=== PATIENT | male | born 1940 | race Caucasian/White ===

== ENCOUNTER 2016-08-03 09:42 | Day surgery (SDC) | payer OTHER, BC ==
[2016-08-03] MEDS ORDERED: diphenhydrAMINE HCL 25 MG CAPSULE (FP) PO ONE (11:00)
[2016-08-03] MEDS ORDERED: ACETAMINOPHEN 325 MG TABLET (FP) PO ONE (11:00)
[2016-08-03] MEDS ORDERED: IMMUNE GLOBULIN IVPB ONE (11:30)
[2016-08-03 17:32] VITALS: TEMP 97.4
[2016-08-03 19:36] VITALS: BP 148/73; PULSE 64
[2016-08-03 20:56] VITALS: BMI 34.7
== END 2016-08-03 19:30 | disposition home or self-care (01) ==
LOC: JINFUSION 09:42 → J7W 09:43 → JINFUSION 19:30
PROVIDERS: ATTEND Psychiatry & Neurology Neurology
DX: G61.89 Other inflammatory polyneuropathies (principal)
CPT/HCPCS: 96413; 96415; J1561; J1459

== ENCOUNTER 2016-09-07 09:31 | Day surgery (SDC) | payer OTHER, BC ==
[2016-09-07] MEDS ORDERED: ACETAMINOPHEN 325 MG TABLET (FP) PO SCH (10:00)
[2016-09-07] MEDS ORDERED: diphenhydrAMINE HCL 25 MG CAPSULE (FP) PO SCH (10:00)
[2016-09-07] MEDS ORDERED: IMMUNE GLOBULIN IVPB ONE (11:00)
[2016-09-07 16:09] VITALS: BP 140/72; PULSE 55; TEMP 97.4; BMI 34.5
== END 2016-09-07 17:00 | disposition home or self-care (01) ==
LOC: JINFUSION 09:31 → J7W 09:31 → JINFUSION 17:00
PROVIDERS: ATTEND Psychiatry & Neurology Neurology
DX: G61.89 Other inflammatory polyneuropathies (principal)
CPT/HCPCS: 96413; 96415; J1561; 96365; 96366; J1459

== ENCOUNTER 2016-10-05 09:46 | Day surgery (SDC) | payer OTHER, BC ==
[2016-10-05] MEDS ORDERED: diphenhydrAMINE HCL 25 MG CAPSULE (FP) PO SCH (10:15)
[2016-10-05] MEDS ORDERED: ACETAMINOPHEN 325 MG TABLET (FP) PO SCH (10:15)
[2016-10-05] MEDS ORDERED: IMMUNE GLOBULIN IVPB ONE (11:00)
[2016-10-05 19:57] VITALS: BP 142/64; PULSE 76; TEMP 98.3
== END 2016-10-05 18:00 | disposition home or self-care (01) ==
LOC: J7W 09:46 → JINFUSION 09:46
PROVIDERS: ATTEND Psychiatry & Neurology Neurology
DX: G62.9 Polyneuropathy, unspecified (principal)
CPT/HCPCS: 96365; 96366; J1561; J1459

== ENCOUNTER 2016-11-30 09:16 | Day surgery (SDC) | payer OTHER, BC ==
[2016-11-30] MEDS ORDERED: ACETAMINOPHEN 325 MG TABLET (FP) PO ONE (11:30)
[2016-11-30] MEDS ORDERED: diphenhydrAMINE HCL 25 MG CAPSULE (FP) PO ONE (11:30)
[2016-11-30] MEDS ORDERED: IMMUNE GLOBULIN IVPB ONE (12:00)
[2016-11-30 19:09] VITALS: PULSE 65; TEMP 97.8
[2016-11-30 19:10] VITALS: BP 140/84
== END 2016-11-30 19:10 | disposition home or self-care (01) ==
LOC: J7W 09:16 → JINFUSION 09:16
PROVIDERS: ATTEND Psychiatry & Neurology Neurology
PROC: 3E033GC Introduction of Other Therapeutic Substance into Peripheral Vein, Percutaneous Approach (ICD-10-PCS; principal; 2016-11-30)
DX: G61.89 Other inflammatory polyneuropathies (principal)
CPT/HCPCS: 96365; 96366; J1561; J1459

== ENCOUNTER 2017-07-07 08:22 | Day surgery (SDC) | payer OTHER, BC ==
[2017-07-07] MEDS ORDERED: ACETAMINOPHEN 325 MG TABLET (FP) PO ONE (09:00)
[2017-07-07] MEDS ORDERED: diphenhydrAMINE HCL 25 MG CAPSULE (FP) PO ONE ×2 (09:00→09:06)
[2017-07-07 09:05] LABS: MCH 30.2 pg (25.7-33.7); MCHC 33.3 g/dl (32.0-35.9); MEAN CELL VOLUME 90.9 fl (80-96); MEAN PLT VOLUME 8.2 fl (7.5-11.1); PLATELET COUNT 268 K/MM3 (134-434); RDW 14.1 % (11.9-15.9); WHITE BLOOD COUNT 8.8 K/mm3 (4.0-10.0)
[2017-07-07] MEDS ORDERED: ACETAMINOPHEN 325 MG TABLET (FP) ONE (09:06)
[2017-07-07 09:25] LABS: ALBUMIN 3.5 g/dl (3.4-5.0); ALK PHOS 145 U/L (45-117); ANION GAP 9 (8-16); BILIRUBIN,DIRECT 0.2 mg/dL (0.0-0.2); BILIRUBIN,TOTAL 0.9 mg/dL (0.2-1.0); CALCIUM 8.6 mg/dL (8.5-10.1); CO2 23 mmol/L (21-32); CREATININE 0.7 mg/dL (0.7-1.3); GLUCOSE,RANDOM 221 mg/dL (74-106); SGOT/AST 80 U/L (15-37); SGPT/ALT 136 U/L (12-78)
[2017-07-07] MEDS ORDERED: IMMUNE GLOB,GAM CAPRYLATE(IGG) 40 GM IVPB ONE (09:30)
[2017-07-07 14:25] VITALS: BP 128/74; PULSE 62; TEMP 97.6
[2017-07-08 06:06] LABS: IGG IMMUNOGLOBULIN 920 mg/dL (700-1600); IGM IMMUNOGLOBULIN 264 mg/dL (15-143)
== END 2017-07-07 14:35 | disposition home or self-care (01) ==
LOC: JINFUSION 08:22
PROVIDERS: ATTEND Psychiatry & Neurology Neurology
PROC: 3E033GC Introduction of Other Therapeutic Substance into Peripheral Vein, Percutaneous Approach (ICD-10-PCS; principal; 2017-07-07)
DX: G61.89 Other inflammatory polyneuropathies (principal)
CPT/HCPCS: 96365; 96366; J1561; 36415; 80053; 80076; 82784; 85027

== ENCOUNTER 2017-07-08 09:09 | Day surgery (SDC) | payer OTHER, BC ==
[2017-07-08] MEDS ORDERED: diphenhydrAMINE HCL 25 MG CAPSULE (FP) PO ONE ×2 (09:30→09:43)
[2017-07-08] MEDS ORDERED: ACETAMINOPHEN 325 MG TABLET (FP) PO ONE (09:30)
[2017-07-08] MEDS ORDERED: ACETAMINOPHEN 325 MG TABLET (FP) ONE (09:43)
[2017-07-08] MEDS ORDERED: IMMUNE GLOB,GAM CAPRYLATE(IGG) 40 GM IVPB ONE (10:00)
[2017-07-08 14:22] VITALS: TEMP 97.7
[2017-07-08 14:24] VITALS: BP 114/77; PULSE 72
== END 2017-07-08 14:25 | disposition home or self-care (01) ==
LOC: JINFUSION 09:09
PROVIDERS: ATTEND Psychiatry & Neurology Neurology
PROC: 3E033WK Introduction of Immunostimulator into Peripheral Vein, Percutaneous (ICD-10-PCS; principal; 2017-07-08)
DX: G61.89 Other inflammatory polyneuropathies (principal)
CPT/HCPCS: 96365; 96366; J1561

== ENCOUNTER 2017-07-09 08:19 | Day surgery (SDC) | payer OTHER, BC ==
[2017-07-09] MEDS ORDERED: ACETAMINOPHEN 325 MG TABLET (FP) PO ONE (09:00)
[2017-07-09] MEDS ORDERED: diphenhydrAMINE HCL 25 MG CAPSULE (FP) PO ONE ×2 (09:00→09:07)
[2017-07-09] MEDS ORDERED: ACETAMINOPHEN 325 MG TABLET (FP) ONE (09:07)
[2017-07-09] MEDS ORDERED: IMMUNE GLOB,GAM CAPRYLATE(IGG) 40 GM IVPB ONE (09:30)
[2017-07-09 12:21] VITALS: TEMP 98.2
[2017-07-09 13:54] VITALS: BP 118/78; PULSE 66
== END 2017-07-09 13:50 | disposition home or self-care (01) ==
LOC: JINFUSION 08:19
PROVIDERS: ATTEND Psychiatry & Neurology Neurology
PROC: 3E033GC Introduction of Other Therapeutic Substance into Peripheral Vein, Percutaneous Approach (ICD-10-PCS; principal; 2017-07-09)
DX: G61.89 Other inflammatory polyneuropathies (principal)
CPT/HCPCS: 96365; 96366; J1561

== ENCOUNTER 2017-07-10 08:49 | Day surgery (SDC) | payer OTHER, BC ==
[2017-07-10] MEDS ORDERED: ACETAMINOPHEN 325 MG TABLET (FP) ONE (09:09)
[2017-07-10] MEDS ORDERED: diphenhydrAMINE HCL 25 MG CAPSULE (FP) PO ONE ×2 (09:09→09:15)
[2017-07-10] MEDS ORDERED: ACETAMINOPHEN 325 MG TABLET (FP) PO ONE (09:15)
[2017-07-10] MEDS ORDERED: IMMUNE GLOB,GAM CAPRYLATE(IGG) 40 GM IVPB ONE (09:45)
[2017-07-10 12:41] VITALS: BP 117/68; PULSE 60; TEMP 97.8
== END 2017-07-10 14:00 | disposition home or self-care (01) ==
LOC: JINFUSION 08:49
PROVIDERS: ATTEND Psychiatry & Neurology Neurology
PROC: 3E033GC Introduction of Other Therapeutic Substance into Peripheral Vein, Percutaneous Approach (ICD-10-PCS; principal; 2017-07-10)
DX: G61.89 Other inflammatory polyneuropathies (principal)
CPT/HCPCS: 96365; 96366; J1561

== ENCOUNTER 2017-08-11 08:26 | Day surgery (SDC) | payer OTHER, BC ==
[2017-08-11 09:07] LABS: HEMATOCRIT 44.9 % (35.4-49); HEMOGLOBIN 14.9 GM/dL (11.7-16.9); MCH 30.6 pg (25.7-33.7); MCHC 33.1 g/dl (32.0-35.9); MEAN CELL VOLUME 92.3 fl (80-96); MEAN PLT VOLUME 8.4 fl (7.5-11.1); PLATELET COUNT 219 K/MM3 (134-434); RBC 4.87 M/mm3 (4.00-5.60); RDW 14.4 % (11.9-15.9); WHITE BLOOD COUNT 6.4 K/mm3 (4.0-10.0)
[2017-08-11] MEDS ORDERED: diphenhydrAMINE HCL 25 MG CAPSULE (FP) PO ONE ×2 (09:30→09:38)
[2017-08-11] MEDS ORDERED: ACETAMINOPHEN 325 MG TABLET (FP) PO ONE (09:30)
[2017-08-11] MEDS ORDERED: ACETAMINOPHEN 325 MG TABLET (FP) ONE (09:39)
[2017-08-11 09:45] LABS: ALBUMIN 3.6 g/dl (3.4-5.0); ALK PHOS 123 U/L (45-117); ANION GAP 8 (8-16); BILIRUBIN,DIRECT 0.3 mg/dL (0.0-0.2); BLOOD UREA NITROGEN 11 mg/dL (7-18); CALCIUM 8.7 mg/dL (8.5-10.1); CHLORIDE 97 mmol/L (98-107); CO2 24 mmol/L (21-32); CREATININE 0.8 mg/dL (0.7-1.3); GLUCOSE,RANDOM 238 mg/dL (74-106); POTASSIUM 4.4 mmol/L (3.5-5.1); SGOT/AST 35 U/L (15-37); SGPT/ALT 52 U/L (12-78); SODIUM 129 mmol/L (136-145); TOT PROT 7.7 g/dl (6.4-8.2)
[2017-08-11] MEDS ORDERED: IMMUNE GLOB,GAM CAPRYLATE(IGG) 40 GM IVPB ONE (10:00)
[2017-08-11 14:27] VITALS: BP 142/81; PULSE 64; TEMP 97.8
[2017-08-12 06:11] LABS: IGA IMMUNOGLOBULIN 223 mg/dL (61-437); IGG IMMUNOGLOBULIN 1385 mg/dL (700-1600)
== END 2017-08-11 14:30 | disposition home or self-care (01) ==
LOC: JINFUSION 08:26
PROVIDERS: ATTEND Internal Medicine
PROC: 3E033GC Introduction of Other Therapeutic Substance into Peripheral Vein, Percutaneous Approach (ICD-10-PCS; principal; 2017-08-11)
DX: G61.89 Other inflammatory polyneuropathies (principal)
CPT/HCPCS: 36415; 80053; 80076; 82784; 85027; 96365; 96366; J1561

== ENCOUNTER 2017-08-12 08:14 | Day surgery (SDC) | payer OTHER, BC ==
[2017-08-12] MEDS ORDERED: diphenhydrAMINE HCL 25 MG CAPSULE (FP) PO ONE ×2 (08:35→08:45)
[2017-08-12] MEDS ORDERED: ACETAMINOPHEN 325 MG TABLET (FP) ONE (08:35)
[2017-08-12] MEDS ORDERED: ACETAMINOPHEN 325 MG TABLET (FP) PO ONE (08:45)
[2017-08-12] MEDS ORDERED: IMMUNE GLOB,GAM CAPRYLATE(IGG) 40 GM IVPB ONE (09:00)
[2017-08-12] MEDS ORDERED: IMMUNE GLOB,GAM CAPRYLATE(IGG) 40 GM IVPB SCH (09:00)
[2017-08-12 13:27] VITALS: TEMP 98.6
[2017-08-12 14:25] VITALS: BP 152/71; PULSE 66
== END 2017-08-12 14:25 | disposition home or self-care (01) ==
LOC: JINFUSION 08:14
PROVIDERS: ATTEND Internal Medicine
PROC: 3E033GC Introduction of Other Therapeutic Substance into Peripheral Vein, Percutaneous Approach (ICD-10-PCS; principal; 2017-08-12)
DX: G61.89 Other inflammatory polyneuropathies (principal)
CPT/HCPCS: 96365; 96366; J1561

== ENCOUNTER 2017-08-13 09:03 | Day surgery (SDC) | payer OTHER, BC ==
[2017-08-13] MEDS ORDERED: diphenhydrAMINE HCL 25 MG CAPSULE (FP) PO ONE ×2 (09:30→10:00)
[2017-08-13] MEDS ORDERED: ACETAMINOPHEN 325 MG TABLET (FP) PO ONE (09:30)
[2017-08-13] MEDS ORDERED: ACETAMINOPHEN 325 MG TABLET (FP) ONE (09:30)
[2017-08-13] MEDS ORDERED: IMMUNE GLOB,GAM CAPRYLATE(IGG) 40 GM IVPB ONE (10:00)
[2017-08-13 12:17] VITALS: PULSE 68
[2017-08-13 14:08] VITALS: BP 143/81; TEMP 98
== END 2017-08-13 14:10 | disposition home or self-care (01) ==
LOC: JINFUSION 09:03
PROVIDERS: ATTEND Internal Medicine
PROC: 3E033GC Introduction of Other Therapeutic Substance into Peripheral Vein, Percutaneous Approach (ICD-10-PCS; principal; 2017-08-13)
DX: G61.89 Other inflammatory polyneuropathies (principal)
CPT/HCPCS: 96365; 96366; J1561

== ENCOUNTER 2017-08-14 08:48 | Day surgery (SDC) | payer OTHER, BC ==
[2017-08-14] MEDS ORDERED: ACETAMINOPHEN 325 MG TABLET (FP) PO ONE (09:14)
[2017-08-14] MEDS ORDERED: ACETAMINOPHEN 325 MG TABLET (FP) ONE (09:14)
[2017-08-14] MEDS ORDERED: diphenhydrAMINE HCL 25 MG CAPSULE (FP) PO ONE ×2 (09:14)
[2017-08-14] MEDS ORDERED: IMMUNE GLOB,GAM CAPRYLATE(IGG) 40 GM IVPB SCH (10:00)
[2017-08-14 14:15] VITALS: BP 135/83; PULSE 64; TEMP 98.4
== END 2017-08-14 14:25 | disposition home or self-care (01) ==
LOC: JINFUSION 08:48
PROVIDERS: ATTEND Internal Medicine
PROC: 3E033GC Introduction of Other Therapeutic Substance into Peripheral Vein, Percutaneous Approach (ICD-10-PCS; principal; 2017-08-14)
DX: G61.89 Other inflammatory polyneuropathies (principal)
CPT/HCPCS: 96365; 96366; J1561

== ENCOUNTER 2017-11-27 09:03 | Day surgery (SDC) | payer OTHER, BC ==
[2017-11-27] MEDS ORDERED: IMMUNE GLOBULIN IVPB SCH (10:00)
[2017-11-27 15:19] VITALS: BP 146/84; PULSE 59; TEMP 98
== END 2017-11-27 15:23 | disposition home or self-care (01) ==
LOC: JINFUSION 09:03
PROVIDERS: ATTEND Psychiatry & Neurology Psychiatry
PROC: 3E033GC Introduction of Other Therapeutic Substance into Peripheral Vein, Percutaneous Approach (ICD-10-PCS; principal; 2017-11-27)
DX: G61.89 Other inflammatory polyneuropathies (principal)
CPT/HCPCS: 96365; 96366; J1561

== ENCOUNTER 2017-11-28 08:33 | Day surgery (SDC) | payer OTHER, BC ==
[2017-11-28] MEDS ORDERED: IMMUNE GLOBULIN IVPB ONE (09:30)
[2017-11-28 10:34] VITALS: TEMP 97.9
[2017-11-28 15:08] VITALS: BP 148/84; PULSE 63
== END 2017-11-28 15:08 | disposition home or self-care (01) ==
LOC: JINFUSION 08:33
PROVIDERS: ATTEND Psychiatry & Neurology Psychiatry
PROC: 3E033GC Introduction of Other Therapeutic Substance into Peripheral Vein, Percutaneous Approach (ICD-10-PCS; principal; 2017-11-28)
DX: G61.89 Other inflammatory polyneuropathies (principal)
CPT/HCPCS: 96365; 96366; J1561

== ENCOUNTER 2018-01-22 08:01 | Day surgery (SDC) | payer OTHER, BC ==
[2018-01-22] MEDS ORDERED: IMMUNE GLOBULIN IVPB ONE (09:00)
[2018-01-22 10:18] VITALS: TEMP 97.8
[2018-01-22 10:50] VITALS: PULSE 62
[2018-01-22 14:45] VITALS: BP 150/89
== END 2018-01-22 12:40 | disposition home or self-care (01) ==
LOC: JINFUSION 08:01
PROVIDERS: ATTEND Psychiatry & Neurology Psychiatry
PROC: 3E033GC Introduction of Other Therapeutic Substance into Peripheral Vein, Percutaneous Approach (ICD-10-PCS; principal; 2018-01-22)
DX: G61.89 Other inflammatory polyneuropathies (principal)
CPT/HCPCS: 96365; 96366; J1561

== ENCOUNTER 2018-01-23 08:40 | Day surgery (SDC) | payer OTHER, BC ==
[2018-01-23] MEDS ORDERED: IMMUNE GLOBULIN IVPB ONE (10:00)
[2018-01-23 13:31] VITALS: PULSE 67
[2018-01-23 13:35] VITALS: BP 149/77; TEMP 97.7
== END 2018-01-23 13:35 | disposition home or self-care (01) ==
LOC: JINFUSION 08:40
PROVIDERS: ATTEND Psychiatry & Neurology Psychiatry
PROC: 3E033GC Introduction of Other Therapeutic Substance into Peripheral Vein, Percutaneous Approach (ICD-10-PCS; principal; 2018-01-23)
DX: G61.89 Other inflammatory polyneuropathies (principal)
CPT/HCPCS: 96365; 96366

== ENCOUNTER 2018-04-02 07:37 | Day surgery (SDC) | payer OTHER, BC ==
[2018-04-02] MEDS ORDERED: diphenhydrAMINE HCL 25 MG CAPSULE (FP) PO ONE ×2 (07:59→08:15)
[2018-04-02] MEDS ORDERED: ACETAMINOPHEN 325 MG TABLET (FP) ONE (08:00)
[2018-04-02] MEDS ORDERED: ACETAMINOPHEN 325 MG TABLET (FP) PO ONE (08:15)
[2018-04-02] MEDS ORDERED: IMMUNE GLOB,GAM CAPRYLATE(IGG) 60 GM/600 ML VIA IVPB ONE (08:45)
[2018-04-02 11:52] VITALS: TEMP 97.6
[2018-04-02 12:04] VITALS: BP 145/86; PULSE 57
== END 2018-04-02 12:13 | disposition home or self-care (01) ==
LOC: JINFUSION 07:37
PROVIDERS: ATTEND Psychiatry & Neurology Psychiatry
PROC: 3E033GC Introduction of Other Therapeutic Substance into Peripheral Vein, Percutaneous Approach (ICD-10-PCS; principal; 2018-04-02)
DX: G61.89 Other inflammatory polyneuropathies (principal)
CPT/HCPCS: 96365; 96366; J1561

== ENCOUNTER 2018-04-30 08:52 | Day surgery (SDC) | payer OTHER, BC ==
[2018-04-30] MEDS ORDERED: IMMUNE GLOB,GAM CAPRYLATE(IGG) 60 GM/600 ML VIA IVPB ONE (09:30)
[2018-04-30] MEDS ORDERED: diphenhydrAMINE HCL 25 MG CAPSULE (FP) PO ONE ×2 (09:30→09:38)
[2018-04-30] MEDS ORDERED: ACETAMINOPHEN 325 MG TABLET (FP) PO ONE (09:30)
[2018-04-30] MEDS ORDERED: ACETAMINOPHEN 325 MG TABLET (FP) ONE (09:38)
[2018-04-30 10:33] VITALS: TEMP 97.8
[2018-04-30 12:53] VITALS: BP 131/76; PULSE 57
== END 2018-04-30 12:45 | disposition home or self-care (01) ==
LOC: JINFUSION 08:52
PROVIDERS: ATTEND Psychiatry & Neurology Psychiatry
PROC: 3E033GC Introduction of Other Therapeutic Substance into Peripheral Vein, Percutaneous Approach (ICD-10-PCS; principal; 2018-04-30)
DX: G61.89 Other inflammatory polyneuropathies (principal)
CPT/HCPCS: 96365; 96366; J1561

== ENCOUNTER 2018-06-04 09:04 | Day surgery (SDC) | payer OTHER, BC ==
[2018-06-04] MEDS ORDERED: diphenhydrAMINE HCL 25 MG CAPSULE (FP) PO ONE ×2 (09:16→10:00)
[2018-06-04] MEDS ORDERED: ACETAMINOPHEN 325 MG TABLET (FP) ONE (09:17)
[2018-06-04] MEDS ORDERED: ACETAMINOPHEN 325 MG TABLET (FP) PO ONE (10:00)
[2018-06-04] MEDS ORDERED: IGA AVG IVPB ONE (10:30)
[2018-06-04] MEDS ORDERED: IMMUNE GLOBUL IVPB ONE (10:30)
[2018-06-04] MEDS ORDERED: GLY IVPB ONE (10:30)
[2018-06-04 15:17] VITALS: BP 131/76; PULSE 73; TEMP 98
== END 2018-06-04 14:00 | disposition home or self-care (01) ==
LOC: JINFUSION 09:04
PROVIDERS: ATTEND Psychiatry & Neurology Psychiatry
PROC: 3E033GC Introduction of Other Therapeutic Substance into Peripheral Vein, Percutaneous Approach (ICD-10-PCS; principal; 2018-06-04)
DX: G61.89 Other inflammatory polyneuropathies (principal)
CPT/HCPCS: 96365; 96366; J1561

== ENCOUNTER 2018-07-02 08:36 | Day surgery (SDC) | payer OTHER, BC ==
[2018-07-02] MEDS ORDERED: ACETAMINOPHEN 325 MG TABLET (FP) ONE (09:04)
[2018-07-02] MEDS ORDERED: diphenhydrAMINE HCL 25 MG CAPSULE (FP) PO ONE ×2 (09:04→09:15)
[2018-07-02] MEDS ORDERED: ACETAMINOPHEN 325 MG TABLET (FP) PO ONE (09:15)
[2018-07-02] MEDS ORDERED: IMMUNE GLOB,GAM CAPRYLATE(IGG) 60 GM/600 ML VIA IVPB ONE (09:30)
[2018-07-02 11:59] VITALS: BP 134/81; PULSE 54; TEMP 98
== END 2018-07-02 12:06 | disposition home or self-care (01) ==
LOC: JINFUSION 08:36
PROVIDERS: ATTEND Psychiatry & Neurology Psychiatry
PROC: 3E033GC Introduction of Other Therapeutic Substance into Peripheral Vein, Percutaneous Approach (ICD-10-PCS; principal; 2018-07-02)
DX: G61.89 Other inflammatory polyneuropathies (principal)
CPT/HCPCS: 96365; 96366; J1561

== ENCOUNTER 2018-08-06 08:58 | Day surgery (SDC) | payer OTHER, BC ==
[~2018-08-06 08:58] MED LIST: ACETAMINOPHEN 325 MG TABLET (FP) PO ONE; diphenhydrAMINE HCL 25 MG CAPSULE (FP) PO ONE
[2018-08-06] MEDS ORDERED: ACETAMINOPHEN 325 MG TABLET (FP) ONE (09:58)
[2018-08-06] MEDS ORDERED: diphenhydrAMINE HCL 25 MG CAPSULE (FP) PO ONE (09:58)
[2018-08-06] MEDS ORDERED: IGA AVG IVPB ONE (10:00)
[2018-08-06] MEDS ORDERED: GLY IVPB ONE (10:00)
[2018-08-06] MEDS ORDERED: IMMUNE GLOBUL IVPB ONE (10:00)
[2018-08-06 11:05] VITALS: TEMP 97.7
[2018-08-06 14:25] VITALS: BP 135/81; PULSE 62
== END 2018-08-06 13:25 | disposition home or self-care (01) ==
LOC: JINFUSION 08:58
PROVIDERS: ATTEND Psychiatry & Neurology Psychiatry
PROC: 3E033GC Introduction of Other Therapeutic Substance into Peripheral Vein, Percutaneous Approach (ICD-10-PCS; principal; 2018-08-06)
DX: G61.89 Other inflammatory polyneuropathies (principal)
CPT/HCPCS: 96365; 96366; J1561

== ENCOUNTER 2018-09-10 08:45 | Day surgery (SDC) | payer OTHER, BC ==
[2018-09-10] MEDS ORDERED: IMMUNE GLOBUL IVPB SCH (09:00)
[2018-09-10] MEDS ORDERED: GLY IVPB SCH (09:00)
[2018-09-10] MEDS ORDERED: IGA AVG IVPB SCH (09:00)
[2018-09-10] MEDS ORDERED: diphenhydrAMINE HCL 25 MG CAPSULE (FP) PO ONE ×2 (09:29→09:45)
[2018-09-10] MEDS ORDERED: ACETAMINOPHEN 325 MG TABLET (FP) ONE (09:29)
[2018-09-10] MEDS ORDERED: IGA AVG IVPB ONE (09:37)
[2018-09-10] MEDS ORDERED: IMMUNE GLOBUL IVPB ONE (09:37)
[2018-09-10] MEDS ORDERED: GLY IVPB ONE (09:37)
[2018-09-10] MEDS ORDERED: ACETAMINOPHEN 325 MG TABLET (FP) PO ONE (09:45)
[2018-09-10 12:14] VITALS: BP 109/76; PULSE 73; TEMP 97.9
== END 2018-09-10 12:28 | disposition home or self-care (01) ==
LOC: JINFUSION 08:45
PROVIDERS: ATTEND Psychiatry & Neurology Psychiatry
PROC: 3E033GC Introduction of Other Therapeutic Substance into Peripheral Vein, Percutaneous Approach (ICD-10-PCS; principal; 2018-09-10)
DX: G61.89 Other inflammatory polyneuropathies (principal)
CPT/HCPCS: 96365; 96366; J1561

== ENCOUNTER 2018-10-12 09:02 | Day surgery (SDC) | payer OTHER, BC ==
[~2018-10-12 09:02] MED LIST changes: +IMMUN GLOB G(IGG)/PRO/IGA 0-50 600 ML IVPB ONE
[2018-10-12] MEDS ORDERED: ACETAMINOPHEN 325 MG TABLET (FP) ONE (09:15)
[2018-10-12] MEDS ORDERED: diphenhydrAMINE HCL 25 MG CAPSULE (FP) PO ONE (09:15)
[2018-10-12 12:03] VITALS: BP 134/80; PULSE 56; TEMP 97.7
== END 2018-10-12 12:46 | disposition home or self-care (01) ==
LOC: JINFUSION 09:02
PROVIDERS: ATTEND Psychiatry & Neurology Psychiatry
PROC: 3E033GC Introduction of Other Therapeutic Substance into Peripheral Vein, Percutaneous Approach (ICD-10-PCS; principal; 2018-10-12)
DX: G61.89 Other inflammatory polyneuropathies (principal)
CPT/HCPCS: 96365; 96366; J1459

== ENCOUNTER 2018-11-26 08:49 | Day surgery (SDC) | payer OTHER, BC ==
[2018-11-26] MEDS ORDERED: IMMUN GLOB G(IGG)/PRO/IGA 0-50 600 ML IVPB ONE (09:00)
[2018-11-26] MEDS ORDERED: diphenhydrAMINE HCL 25 MG CAPSULE (FP) PO ONE ×2 (09:00→09:06)
[2018-11-26] MEDS ORDERED: ACETAMINOPHEN 325 MG TABLET (FP) PO ONE (09:00)
[2018-11-26] MEDS ORDERED: ACETAMINOPHEN 325 MG TABLET (FP) ONE (09:05)
[2018-11-26 11:11] VITALS: TEMP 98
[2018-11-26 12:33] VITALS: BP 127/69; PULSE 55
== END 2018-11-26 12:55 | disposition home or self-care (01) ==
LOC: JINFUSION 08:49
PROVIDERS: ATTEND Psychiatry & Neurology Psychiatry
PROC: 3E033GC Introduction of Other Therapeutic Substance into Peripheral Vein, Percutaneous Approach (ICD-10-PCS; principal; 2018-11-26)
DX: G61.89 Other inflammatory polyneuropathies (principal)
CPT/HCPCS: 96365; 96366; J1459

== ENCOUNTER 2018-12-24 08:40 | Day surgery (SDC) | payer OTHER, BC | END 2018-12-24 14:20 | disposition home or self-care (01) | LOC: JINFUSION 08:40 ==

== ENCOUNTER 2019-01-25 08:30 | Day surgery (SDC) | payer OTHER, BC ==
[2019-01-25] MEDS ORDERED: diphenhydrAMINE HCL 25 MG CAPSULE (FP) PO ONE ×2 (09:00→09:21)
[2019-01-25] MEDS ORDERED: ACETAMINOPHEN 325 MG TABLET (FP) PO ONE (09:00)
[2019-01-25] MEDS ORDERED: ACETAMINOPHEN 325 MG TABLET (FP) ONE (09:21)
[2019-01-25] MEDS ORDERED: [UNRECOGNIZED DRUG - OTHER] IVPB ONE (10:00)
[2019-01-25] MEDS ORDERED: IMMUNE GLOBULIN IVPB ONE (10:00)
[2019-01-25 13:23] VITALS: BP 145/79; PULSE 66; TEMP 98
== END 2019-01-25 13:15 | disposition home or self-care (01) ==
LOC: JINFUSION 08:30
PROVIDERS: ATTEND Psychiatry & Neurology Psychiatry
PROC: 3E033GC Introduction of Other Therapeutic Substance into Peripheral Vein, Percutaneous Approach (ICD-10-PCS; principal; 2019-01-25)
DX: G61.89 Other inflammatory polyneuropathies (principal)
CPT/HCPCS: 96365; 96366; J1569

== ENCOUNTER 2019-02-26 08:59 | Day surgery (SDC) | payer OTHER, BC ==
[2019-02-26] MEDS ORDERED: ACETAMINOPHEN 325 MG TABLET (FP) PO ONE (09:30)
[2019-02-26] MEDS ORDERED: diphenhydrAMINE HCL 25 MG CAPSULE (FP) PO ONE (09:30)
[2019-02-26] MEDS ORDERED: [UNRECOGNIZED DRUG - OTHER] IVPB ONE (09:45)
[2019-02-26] MEDS ORDERED: IMMUNE GLOBULIN IVPB ONE (09:45)
[2019-02-26 14:15] VITALS: BP 148/80; PULSE 58; TEMP 97.9
== END 2019-02-26 15:01 | disposition home or self-care (01) ==
LOC: JINFUSION 08:59
PROVIDERS: ATTEND Psychiatry & Neurology Psychiatry
PROC: 3E033GC Introduction of Other Therapeutic Substance into Peripheral Vein, Percutaneous Approach (ICD-10-PCS; principal; 2019-02-26)
DX: G61.89 Other inflammatory polyneuropathies (principal)
CPT/HCPCS: 96365; 96366; J1459

== ENCOUNTER 2019-03-25 08:50 | Day surgery (SDC) | payer OTHER, BC ==
[~2019-03-25 08:50] MED LIST changes: -IMMUN GLOB G(IGG)/PRO/IGA 0-50 600 ML IVPB ONE
[2019-03-25] MEDS ORDERED: IMMUNE GLOBULIN IVPB ONE (09:00)
[2019-03-25] MEDS ORDERED: [UNRECOGNIZED DRUG - OTHER] IVPB ONE (09:00)
[2019-03-25] MEDS ORDERED: diphenhydrAMINE HCL 25 MG CAPSULE (FP) PO ONE (09:04)
[2019-03-25] MEDS ORDERED: ACETAMINOPHEN 325 MG TABLET (FP) ONE (09:05)
[2019-03-25 09:18] VITALS: TEMP 97.8
[2019-03-25 12:51] VITALS: BP 156/87; PULSE 61
== END 2019-03-25 14:40 | disposition home or self-care (01) ==
LOC: JINFUSION 08:50
PROVIDERS: ATTEND Psychiatry & Neurology Psychiatry
PROC: 3E033GC Introduction of Other Therapeutic Substance into Peripheral Vein, Percutaneous Approach (ICD-10-PCS; principal; 2019-03-25)
DX: G61.89 Other inflammatory polyneuropathies (principal)
CPT/HCPCS: 96365; 96366; J1459

== ENCOUNTER 2019-04-22 08:14 | Day surgery (SDC) | payer OTHER, BC ==
[2019-04-22] MEDS ORDERED: ACETAMINOPHEN 325 MG TABLET (FP) PO ONE (08:30)
[2019-04-22] MEDS ORDERED: diphenhydrAMINE HCL 25 MG CAPSULE (FP) PO ONE ×2 (08:30→09:05)
[2019-04-22] MEDS ORDERED: IMMUNE GLOBULIN IVPB ONE (09:00)
[2019-04-22] MEDS ORDERED: [UNRECOGNIZED DRUG - OTHER] IVPB ONE (09:00)
[2019-04-22] MEDS ORDERED: ACETAMINOPHEN 325 MG TABLET (FP) ONE (09:05)
[2019-04-22 13:21] VITALS: TEMP 97.7
[2019-04-22 14:18] VITALS: BP 134/76; PULSE 76
== END 2019-04-22 14:20 | disposition home or self-care (01) ==
LOC: JINFUSION 08:14
PROVIDERS: ATTEND Psychiatry & Neurology Psychiatry
PROC: 3E033GC Introduction of Other Therapeutic Substance into Peripheral Vein, Percutaneous Approach (ICD-10-PCS; principal; 2019-04-22)
DX: G61.89 Other inflammatory polyneuropathies (principal)
CPT/HCPCS: 96365; 96366; J1459

== ENCOUNTER 2019-05-26 08:33 | Day surgery (SDC) | payer OTHER, BC ==
[2019-05-26] MEDS ORDERED: IMMUNE GLOBULIN IVPB ONE (09:00)
[2019-05-26] MEDS ORDERED: [UNRECOGNIZED DRUG - OTHER] IVPB ONE (09:00)
[2019-05-26] MEDS ORDERED: diphenhydrAMINE HCL 25 MG CAPSULE (FP) PO ONE (09:02)
[2019-05-26] MEDS ORDERED: ACETAMINOPHEN 325 MG TABLET (FP) ONE (09:04)
[2019-05-26 15:32] VITALS: BP 146/85; PULSE 72; TEMP 98
== END 2019-05-26 14:00 | disposition home or self-care (01) ==
LOC: JINFUSION 08:33
PROVIDERS: ATTEND Psychiatry & Neurology Psychiatry
PROC: 3E033GC Introduction of Other Therapeutic Substance into Peripheral Vein, Percutaneous Approach (ICD-10-PCS; principal; 2019-05-26)
DX: G61.89 Other inflammatory polyneuropathies (principal)
CPT/HCPCS: 96365; 96366; J1459

== ENCOUNTER 2019-06-24 08:12 | Day surgery (SDC) | payer OTHER, BC ==
[2019-06-24] MEDS ORDERED: ACETAMINOPHEN 325 MG TABLET (FP) PO ONE (08:45)
[2019-06-24] MEDS ORDERED: diphenhydrAMINE HCL 25 MG CAPSULE (FP) PO ONE ×2 (08:45→09:15)
[2019-06-24] MEDS ORDERED: [UNRECOGNIZED DRUG - OTHER] IVPB ONE (09:00)
[2019-06-24] MEDS ORDERED: IMMUNE GLOBULIN IVPB ONE (09:00)
[2019-06-24] MEDS ORDERED: ACETAMINOPHEN 325 MG TABLET (FP) ONE (09:16)
[2019-06-24 13:51] VITALS: BP 140/84; PULSE 61; TEMP 97.7
== END 2019-06-24 14:36 | disposition home or self-care (01) ==
LOC: JINFUSION 08:12
PROVIDERS: ATTEND Psychiatry & Neurology Psychiatry
DX: G61.89 Other inflammatory polyneuropathies (principal)
CPT/HCPCS: 96365; 96366; J1459

== ENCOUNTER 2019-07-22 08:44 | Day surgery (SDC) | payer OTHER, BC ==
[2019-07-22] MEDS ORDERED: diphenhydrAMINE HCL 25 MG CAPSULE (FP) PO ONE ×2 (09:00→09:27)
[2019-07-22] MEDS ORDERED: ACETAMINOPHEN 325 MG TABLET (FP) PO ONE (09:00)
[2019-07-22] MEDS ORDERED: ACETAMINOPHEN 325 MG TABLET (FP) ONE (09:27)
[2019-07-22] MEDS ORDERED: IMMUNE GLOBULIN IVPB ONE (09:30)
[2019-07-22] MEDS ORDERED: [UNRECOGNIZED DRUG - OTHER] IVPB ONE (09:30)
[2019-07-22 11:50] VITALS: TEMP 97.9
[2019-07-22 12:57] VITALS: BP 125/70; PULSE 69
== END 2019-07-22 14:41 | disposition home or self-care (01) ==
LOC: JINFUSION 08:44
PROVIDERS: ATTEND Psychiatry & Neurology Psychiatry
PROC: 3E033GC Introduction of Other Therapeutic Substance into Peripheral Vein, Percutaneous Approach (ICD-10-PCS; principal; 2019-07-22)
DX: G61.89 Other inflammatory polyneuropathies (principal)
CPT/HCPCS: 96365; 96366; J1459

== ENCOUNTER 2019-08-26 08:37 | Day surgery (SDC) | payer OTHER, BC ==
[2019-08-26] MEDS ORDERED: IMMUN GLOB G(IGG)/PRO/IGA 0-50 600 ML IVPB ONE (09:00)
[2019-08-26] MEDS ORDERED: ACETAMINOPHEN 325 MG TABLET (FP) PO ONE (09:00)
[2019-08-26] MEDS ORDERED: diphenhydrAMINE HCL 25 MG CAPSULE (FP) PO ONE (09:00)
[2019-08-26 10:43] LABS: MCH 31.5 pg (25.7-33.7); MCHC 34.1 g/dl (32.0-35.9); MEAN CELL VOLUME 92.3 fl (80-96); MEAN PLT VOLUME 9.4 fl (7.5-11.1); PLATELET COUNT 169 K/MM3 (134-434); RBC 4.77 M/mm3 (4.00-5.60); RDW 13.6 % (11.9-15.9); WHITE BLOOD COUNT 5.8 K/mm3 (4.0-10.0)
[2019-08-26 11:22] LABS: ALBUMIN 3.4 g/dl (3.4-5.0); BILIRUBIN,DIRECT 0.2 mg/dL (0.0-0.2); BILIRUBIN,TOTAL 0.9 mg/dL (0.2-1); BLOOD UREA NITROGEN 12.5 mg/dL (7-18); CALCIUM 8.8 mg/dL (8.5-10.1); CREATININE 0.7 mg/dL (0.55-1.3); POTASSIUM 4.4 mmol/L (3.5-5.1); TOT PROT 7.3 g/dl (6.4-8.2)
[2019-08-26 15:31] VITALS: BP 147/65; PULSE 59; TEMP 97.7
[2019-08-28 07:08] LABS: IGG QN IMMUNOGLOBULIN 521 mg/dL (700-1600); IGG SUBCLASS 1 735 mg/dL (248-810); IGG SUBCLASS 2 399 mg/dL (130-555); IGG SUBCLASS 3 56 mg/dL (15-102)
== END 2019-08-26 15:42 | disposition home or self-care (01) ==
LOC: JINFUSION 08:37 → J7W 08:38 → JINFUSION 15:42
PROVIDERS: ATTEND Psychiatry & Neurology Psychiatry
PROC: 3E033GC Introduction of Other Therapeutic Substance into Peripheral Vein, Percutaneous Approach (ICD-10-PCS; principal; 2019-08-26)
DX: G61.89 Other inflammatory polyneuropathies (principal)
CPT/HCPCS: 36415; 80048; 80076; 82784; 82787; 83883; 85027; 96365; 96366; J1459

== ENCOUNTER 2019-09-24 08:03 | Day surgery (SDC) | payer OTHER ==
[2019-09-24 08:52] LABS: BASO % 1.3 % (0-2.0); EOS % 2.7 % (0-4.5); HEMOGLOBIN 14.6 GM/dL (11.7-16.9); LYMPH % 26.1 % (8-40); MCH 31.9 pg (25.7-33.7); MCHC 34.8 g/dl (32.0-35.9); MEAN CELL VOLUME 91.5 fl (80-96); MEAN PLT VOLUME 8.6 fl (7.5-11.1); MONO % 12.4 % (3.8-10.2); NEUT % 57.5 % (42.8-82.8); PLATELET COUNT 224 K/MM3 (134-434); RBC 4.59 M/mm3 (4.00-5.60); RDW 13.2 % (11.9-15.9); WHITE BLOOD COUNT 8.8 K/mm3 (4.0-10.0)
[2019-09-24] MEDS ORDERED: ACETAMINOPHEN 325 MG TABLET (FP) PO ONE (09:00)
[2019-09-24] MEDS ORDERED: diphenhydrAMINE HCL 25 MG CAPSULE (FP) PO ONE (09:00)
[2019-09-24 09:17] LABS: ALBUMIN 3.5 g/dl (3.4-5.0); BILIRUBIN,DIRECT 0.2 mg/dL (0.0-0.2); BILIRUBIN,TOTAL 1.3 mg/dL (0.2-1); BLOOD UREA NITROGEN 11.6 mg/dL (7-18); CALCIUM 8.8 mg/dL (8.5-10.1); CREATININE 0.8 mg/dL (0.55-1.3); POTASSIUM 4.2 mmol/L (3.5-5.1); TOT PROT 7.2 g/dl (6.4-8.2)
[2019-09-24] MEDS ORDERED: IMMUN GLOB G(IGG)/PRO/IGA 0-50 600 ML IVPB ONE (09:30)
[2019-09-24 09:35] VITALS: BP 126/68; PULSE 74; TEMP 97.8
[2019-09-25 08:07] LABS: IGA IMMUNOGLOBULIN 276 mg/dL (61-437); IGG QN IMMUNOGLOBULIN 1323 mg/dL (700-1600); IGM QN SERUM 306 mg/dL (15-143)
== END 2019-09-24 13:40 | disposition home or self-care (01) ==
LOC: J7W 08:03 → JINFUSION 08:03
PROVIDERS: ATTEND Psychiatry & Neurology Psychiatry
PROC: 3E033GC Introduction of Other Therapeutic Substance into Peripheral Vein, Percutaneous Approach (ICD-10-PCS; principal; 2019-09-24)
DX: G61.82 Multifocal motor neuropathy (principal)
CPT/HCPCS: 36415; 80048; 80076; 82784; 85025; 96365; 96366; J1459

== ENCOUNTER 2020-01-19 10:01 | Day surgery (SDC) | payer OTHER, BC ==
[2020-01-19] MEDS ORDERED: ACETAMINOPHEN 325 MG TABLET (FP) PO ONE (10:30)
[2020-01-19] MEDS ORDERED: diphenhydrAMINE HCL 25 MG CAPSULE (FP) PO ONE ×2 (10:30→10:44)
[2020-01-19] MEDS ORDERED: ACETAMINOPHEN 325 MG TABLET (FP) ONE (10:44)
[2020-01-19] MEDS ORDERED: IMMUN GLOB G(IGG)/PRO/IGA 0-50 600 ML IVPB ONE (11:00)
[2020-01-19 14:18] VITALS: BP 127/66; PULSE 62; TEMP 97.8
== END 2020-01-19 15:30 | disposition home or self-care (01) ==
LOC: JINFUSION 10:01
PROVIDERS: ATTEND Psychiatry & Neurology Psychiatry
PROC: 3E033GC Introduction of Other Therapeutic Substance into Peripheral Vein, Percutaneous Approach (ICD-10-PCS; principal; 2020-01-19)
DX: G61.82 Multifocal motor neuropathy (principal)
CPT/HCPCS: 96365; 96366; J1459

== ENCOUNTER 2022-08-16 12:30 | Inpatient (IN) | payer OTHER, BC ==
[2022-08-16] MEDS ORDERED: HALOPERIDOL LACTATE 5 MG/ML IM ONE ×2 (13:21→14:32)
[2022-08-16 14:28] LABS: BASO % 1.1 % (0-2.0); EOS % 1.9 % (0-4.5); HEMATOCRIT 45.9 % (35.4-49); HEMOGLOBIN 15.4 GM/dL (11.7-16.9); LYMPH % 24.6 % (8-40); MCH 31.3 pg (25.7-33.7); MCHC 33.6 g/dl (32.0-35.9); MEAN PLT VOLUME 8.8 fl (7.5-11.1); MONO % 13.8 % (3.8-10.2); NEUT % 58.6 % (42.8-82.8); PLATELET COUNT 281 10^3/uL (134-434); RBC 4.94 M/mm3 (4.00-5.60); RDW 13.8 % (11.9-15.9); WHITE BLOOD COUNT 9.1 K/mm3 (4.0-10.0)
[2022-08-16 14:29] LABS: EPI CELLS 5 /uL (0-25.1); HYALINE CASTS 1 /uL (0-3.1); PH,URINE 8.5 (5.0-8.0); URINE APPEARANCE CLOUDY; URINE BACTERIA 5 /uL (0-1359); URINE BILIRUBIN NEGATIVE (NEGATIVE); URINE COLOR RED; URINE GLUCOSE (UA) NEGATIVE (NEGATIVE); URINE KETONE NEGATIVE (NEGATIVE); URINE LEUK ESTERASE TRACE (NEGATIVE); URINE NITRITE NEGATIVE (NEGATIVE); URINE PROTEIN 1+ (NEGATIVE); URINE RBC 14440 /uL (0-23.9); URINE WBC 39 /uL (0-25.8)
[2022-08-16 14:36] LABS: INR 1.34 (0.83-1.09); PROTHROMBIN TIME (PATIENT) 15.5 SEC (9.7-13.0)
[2022-08-16 14:39] LABS: ACTIVATED PTT 35.6 SECONDS (25.2-36.5)
[2022-08-16 14:44] LABS: CALCIUM 9.2 mg/dL (8.5-10.1)
[2022-08-16 14:46] LABS: ALBUMIN 3.4 g/dl (3.4-5.0); MAGNESIUM 1.8 mg/dL (1.8-2.4)
[2022-08-16 14:48] LABS: CREATININE 0.7 mg/dL (0.55-1.3); PHOSPHOROUS 2.4 mg/dL (2.5-4.9)
[2022-08-16 14:50] LABS: BILIRUBIN,TOTAL 1.6 mg/dL (0.2-1); TOT PROT 7.1 g/dl (6.4-8.2)
[2022-08-16] MEDS ORDERED: ACETAMINOPHEN 325 MG TABLET (FP) PO PRN (17:59)
[2022-08-16] MEDS ORDERED: ERGOCALCIFEROL (VIT D2) 50,000 UNIT (1.25 MG) CAPSULE PO SCH (18:00)
[2022-08-16 21:18] VITALS: BMI 25.4
[2022-08-16] MEDS ORDERED: PATIENT'S OWN MEDICATION (NON-FORMULARY) (Levomefolate/B6/B12/Algal Oil [Metanx Capsule] 1 PO SCH (22:00)
[2022-08-16] MEDS: HEPARIN NA (PORCINE) 5,000 UNITS/ML 1ML VIAL SQ SCH (22:28)
[2022-08-16] MEDS: HALOPERIDOL LACTATE 5 MG/ML IM PRN (23:09)
[2022-08-16] MEDS: QUEtiapine FUMARATE 25 MG TABLET PO SCH (23:25)
[2022-08-17] MEDS ORDERED: ASPIRIN 81 MG CHEWABLE TABLETS PO SCH (09:00)
[2022-08-17 09:27] LABS: BASO % 0.7 % (0-2.0); EOS % 2.1 % (0-4.5); HEMATOCRIT 48.4 % (35.4-49); HEMOGLOBIN 16.3 GM/dL (11.7-16.9); LYMPH % 29.7 % (8-40); MCH 31.5 pg (25.7-33.7); MCHC 33.7 g/dl (32.0-35.9); MEAN CELL VOLUME 93.6 fl (80-96); MEAN PLT VOLUME 8.2 fl (7.5-11.1); MONO % 14.1 % (3.8-10.2); NEUT % 53.4 % (42.8-82.8); PLATELET COUNT 260 10^3/uL (134-434); RBC 5.18 M/mm3 (4.00-5.60); RDW 13.4 % (11.9-15.9); WHITE BLOOD COUNT 8.5 K/mm3 (4.0-10.0)
[2022-08-17 09:44] LABS: ALBUMIN 3.2 g/dl (3.4-5.0); BLOOD UREA NITROGEN 7.7 mg/dL (7-18)
[2022-08-17 09:48] LABS: CREATININE 0.5 mg/dL (0.55-1.3)
[2022-08-17 09:49] LABS: BILIRUBIN,TOTAL 1.3 mg/dL (0.2-1); TOT PROT 6.6 g/dl (6.4-8.2)
[2022-08-17] MEDS: VALSARTAN 160 MG TABLET PO SCH (09:52)
[2022-08-17] MEDS: CYANOCOBALAMIN 1,000 MCG TABLET (FP) PO SCH (09:52)
[2022-08-17] MEDS: HEPARIN NA (PORCINE) 5,000 UNITS/ML 1ML VIAL SQ SCH ×2 (09:52→22:14)
[2022-08-17] MEDS: FOLIC ACID 1 MG TABLET (FP) PO SCH (09:53)
[2022-08-17] MEDS: PYRIDOXINE HCL (B-6) 50 MG TABLET (FP) PO SCH (11:41)
[2022-08-17] MEDS: QUEtiapine FUMARATE 25 MG TABLET PO SCH (22:14)
[2022-08-18] MEDS: CYANOCOBALAMIN 1,000 MCG TABLET (FP) PO SCH (10:20)
[2022-08-18] MEDS: PYRIDOXINE HCL (B-6) 50 MG TABLET (FP) PO SCH (10:20)
[2022-08-18] MEDS: VALSARTAN 160 MG TABLET PO SCH (10:20)
[2022-08-18] MEDS: HEPARIN NA (PORCINE) 5,000 UNITS/ML 1ML VIAL SQ SCH ×2 (10:21→22:44)
[2022-08-18] MEDS: FOLIC ACID 1 MG TABLET (FP) PO SCH (10:21)
[2022-08-18] MEDS: HALOPERIDOL LACTATE 5 MG/ML IM PRN (22:44)
[2022-08-18] MEDS: QUEtiapine FUMARATE 25 MG TABLET PO SCH (22:45)
[2022-08-19] MEDS: HEPARIN NA (PORCINE) 5,000 UNITS/ML 1ML VIAL SQ SCH ×2 (13:04→21:43)
[2022-08-19] MEDS: FOLIC ACID 1 MG TABLET (FP) PO SCH (13:04)
[2022-08-19] MEDS: VALSARTAN 160 MG TABLET PO SCH (13:05)
[2022-08-19] MEDS: CYANOCOBALAMIN 1,000 MCG TABLET (FP) PO SCH (13:05)
[2022-08-19] MEDS: QUEtiapine FUMARATE 25 MG TABLET PO SCH ×2 (13:05→21:43)
[2022-08-19] MEDS: ASPIRIN 81 MG CHEWABLE TABLETS PO SCH (13:05)
[2022-08-19] MEDS: PYRIDOXINE HCL (B-6) 50 MG TABLET (FP) PO SCH (13:06)
[2022-08-20] MEDS: CYANOCOBALAMIN 1,000 MCG TABLET (FP) PO SCH (11:09)
[2022-08-20] MEDS: HEPARIN NA (PORCINE) 5,000 UNITS/ML 1ML VIAL SQ SCH ×2 (11:09→21:39)
[2022-08-20] MEDS: ASPIRIN 81 MG CHEWABLE TABLETS PO SCH (11:10)
[2022-08-20] MEDS: VALSARTAN 160 MG TABLET PO SCH (11:10)
[2022-08-20] MEDS: QUEtiapine FUMARATE 25 MG TABLET PO SCH (11:10)
[2022-08-20] MEDS: FOLIC ACID 1 MG TABLET (FP) PO SCH (11:10)
[2022-08-20] MEDS: PYRIDOXINE HCL (B-6) 50 MG TABLET (FP) PO SCH (11:16)
[2022-08-20] MEDS ORDERED: QUEtiapine FUMARATE 25 MG TABLET PO ONE (12:02)
[2022-08-20 19:18] LABS: HEMATOCRIT 47.5 % (35.4-49); HEMOGLOBIN 16.3 GM/dL (11.7-16.9); MCHC 34.3 g/dl (32.0-35.9); MEAN CELL VOLUME 93.1 fl (80-96); MEAN PLT VOLUME 8.9 fl (7.5-11.1); PLATELET COUNT 269 10^3/uL (134-434); WHITE BLOOD COUNT 10.3 K/mm3 (4.0-10.0)
[2022-08-20] MEDS: QUEtiapine FUMARATE 50 MG TABLET PO SCH (21:39)
[2022-08-20] MEDS ORDERED: OLANZapine 5 MG TABLET PO SCH (22:00)
[2022-08-21] MEDS: QUEtiapine FUMARATE 50 MG TABLET PO SCH ×2 (10:37→23:31)
[2022-08-21] MEDS: CYANOCOBALAMIN 1,000 MCG TABLET (FP) PO SCH (10:37)
[2022-08-21] MEDS: ASPIRIN 81 MG CHEWABLE TABLETS PO SCH (10:37)
[2022-08-21] MEDS: VALSARTAN 160 MG TABLET PO SCH (10:37)
[2022-08-21] MEDS: HEPARIN NA (PORCINE) 5,000 UNITS/ML 1ML VIAL SQ SCH ×2 (10:37→23:31)
[2022-08-21] MEDS: FOLIC ACID 1 MG TABLET (FP) PO SCH (10:38)
[2022-08-21] MEDS: PYRIDOXINE HCL (B-6) 50 MG TABLET (FP) PO SCH (10:46)
[2022-08-21 10:56] LABS: HEMATOCRIT 49.1 % (35.4-49); HEMOGLOBIN 16.8 GM/dL (11.7-16.9); MCH 31.9 pg (25.7-33.7); MCHC 34.2 g/dl (32.0-35.9); MEAN CELL VOLUME 93.2 fl (80-96); PLATELET COUNT 259 10^3/uL (134-434); RBC 5.27 M/mm3 (4.00-5.60); WHITE BLOOD COUNT 11.1 K/mm3 (4.0-10.0)
[2022-08-21 11:15] LABS: ALBUMIN 2.9 g/dl (3.4-5.0); BLOOD UREA NITROGEN 19.5 mg/dL (7-18); CALCIUM 9.3 mg/dL (8.5-10.1)
[2022-08-21 11:18] LABS: CREATININE 0.7 mg/dL (0.55-1.3)
[2022-08-21 11:19] LABS: BILIRUBIN,TOTAL 1.5 mg/dL (0.2-1); TOT PROT 6.6 g/dl (6.4-8.2)
[2022-08-22] MEDS: VALSARTAN 160 MG TABLET PO SCH (10:16)
[2022-08-22] MEDS: PYRIDOXINE HCL (B-6) 50 MG TABLET (FP) PO SCH (10:16)
[2022-08-22] MEDS: ASPIRIN 81 MG CHEWABLE TABLETS PO SCH (10:16)
[2022-08-22] MEDS: HALOPERIDOL LACTATE 5 MG/ML IM PRN (10:17)
[2022-08-22] MEDS: CYANOCOBALAMIN 1,000 MCG TABLET (FP) PO SCH (10:17)
[2022-08-22] MEDS: HEPARIN NA (PORCINE) 5,000 UNITS/ML 1ML VIAL SQ SCH ×2 (10:17→22:02)
[2022-08-22] MEDS: FOLIC ACID 1 MG TABLET (FP) PO SCH (10:17)
[2022-08-22] MEDS: QUEtiapine FUMARATE 50 MG TABLET PO SCH ×2 (10:17→22:03)
[2022-08-23] MEDS: CYANOCOBALAMIN 1,000 MCG TABLET (FP) PO SCH ×2 (09:43→10:12)
[2022-08-23] MEDS: HEPARIN NA (PORCINE) 5,000 UNITS/ML 1ML VIAL SQ SCH (09:43)
[2022-08-23] MEDS: ASPIRIN 81 MG CHEWABLE TABLETS PO SCH ×2 (09:44→10:10)
[2022-08-23] MEDS: FOLIC ACID 1 MG TABLET (FP) PO SCH ×2 (09:44→10:11)
[2022-08-23] MEDS: VALSARTAN 160 MG TABLET PO SCH ×2 (09:44→10:11)
[2022-08-23] MEDS: QUEtiapine FUMARATE 50 MG TABLET PO SCH ×3 (09:44→21:16)
[2022-08-23] MEDS: PYRIDOXINE HCL (B-6) 50 MG TABLET (FP) PO SCH ×2 (09:44→10:12)
[2022-08-23] MEDS ORDERED: ERGOCALCIFEROL (VIT D2) 50,000 UNIT (1.25 MG) CAPSULE PO SCH (10:00)
[2022-08-23] MEDS: HALOPERIDOL LACTATE 5 MG/ML IM PRN ×2 (10:15→16:34)
[2022-08-24] MEDS: QUEtiapine FUMARATE 50 MG TABLET PO SCH ×2 (10:04→21:15)
[2022-08-24] MEDS: FOLIC ACID 1 MG TABLET (FP) PO SCH (10:04)
[2022-08-24] MEDS: CYANOCOBALAMIN 1,000 MCG TABLET (FP) PO SCH (10:05)
[2022-08-24] MEDS: VALSARTAN 160 MG TABLET PO SCH (10:05)
[2022-08-24] MEDS: ASPIRIN 81 MG CHEWABLE TABLETS PO SCH (10:05)
[2022-08-24] MEDS: PYRIDOXINE HCL (B-6) 50 MG TABLET (FP) PO SCH (10:05)
[2022-08-25] MEDS: FOLIC ACID 1 MG TABLET (FP) PO SCH (09:51)
[2022-08-25] MEDS: VALSARTAN 160 MG TABLET PO SCH (09:51)
[2022-08-25] MEDS: QUEtiapine FUMARATE 50 MG TABLET PO SCH ×2 (09:51→21:26)
[2022-08-25] MEDS: PYRIDOXINE HCL (B-6) 50 MG TABLET (FP) PO SCH (09:51)
[2022-08-25] MEDS: ASPIRIN 81 MG CHEWABLE TABLETS PO SCH (09:51)
[2022-08-25] MEDS: CYANOCOBALAMIN 1,000 MCG TABLET (FP) PO SCH (09:51)
[2022-08-26] MEDS: HALOPERIDOL LACTATE 5 MG/ML IM PRN (07:42)
[2022-08-26] MEDS: ASPIRIN 81 MG CHEWABLE TABLETS PO SCH (10:06)
[2022-08-26] MEDS: FOLIC ACID 1 MG TABLET (FP) PO SCH (10:07)
[2022-08-26] MEDS: CYANOCOBALAMIN 1,000 MCG TABLET (FP) PO SCH (10:07)
[2022-08-26] MEDS: PYRIDOXINE HCL (B-6) 50 MG TABLET (FP) PO SCH (10:07)
[2022-08-26] MEDS: QUEtiapine FUMARATE 50 MG TABLET PO SCH (10:07)
[2022-08-26] MEDS: VALSARTAN 160 MG TABLET PO SCH (10:07)
[2022-08-26] MEDS: QUEtiapine FUMARATE 25 MG TABLET PO SCH (22:21)
[2022-08-27] MEDS: HALOPERIDOL LACTATE 5 MG/ML IM PRN ×2 (07:03→14:47)
[2022-08-27] MEDS: FOLIC ACID 1 MG TABLET (FP) PO SCH (09:11)
[2022-08-27] MEDS: CYANOCOBALAMIN 1,000 MCG TABLET (FP) PO SCH (09:11)
[2022-08-27] MEDS: ASPIRIN 81 MG CHEWABLE TABLETS PO SCH (09:11)
[2022-08-27] MEDS: QUEtiapine FUMARATE 25 MG TABLET PO SCH (09:14)
[2022-08-27] MEDS: PYRIDOXINE HCL (B-6) 50 MG TABLET (FP) PO SCH (09:21)
[2022-08-27] MEDS: VALSARTAN 160 MG TABLET PO SCH (12:07)
[2022-08-27 16:21] VITALS: BP 113/78; PULSE 92; RESP 20; TEMP 98.6
== END 2022-08-27 19:12 | DRG 177 ==
LOC: JER 12:30 → JERBED 15:49 → OBSVTOIN 17:59 → J8W 19:07
PROVIDERS: ADMIT Internal Medicine; ATTEND Internal Medicine
DX: U07.1 COVID-19 (principal); G93.41 Metabolic encephalopathy; F02.818 Dementia in other diseases classified elsewhere, unspecified severity, with other behavioral disturbance; E11.40 Type 2 diabetes mellitus with diabetic neuropathy, unspecified; I10 Essential (primary) hypertension; R45.1 Restlessness and agitation; R31.9 Hematuria, unspecified
CPT/HCPCS: 0241U-QW; 36415; 70450-TC; 71045-TC-FY; 72125-TC; 72170-TC-FY; 76775-TC; 76856-TC; 80053; 81003; 82607; 82962; 83735; 84100; 84443; 84484; 85025; 85027; 85610; 85730; 86850; 86900; 86901; 87086; 93005; 93010; 97116-GP; 97161-GP; 99285-25; C9803-CS; G0378; J1644; U0003; U0005

== ENCOUNTER 2022-08-27 21:51 | Inpatient (IN) | payer OTHER, BC ==
[2022-08-27] MEDS ORDERED: RAPID SEQUENCE INTUBATION KIT NR ONE (21:58)
[2022-08-27] MEDS ORDERED: MIDAZOLAM HCL 2 MG/2 ML SINGLE DOSE VIAL ONE (22:00)
[2022-08-27] MEDS ORDERED: NOREPINEPHRINE BITARTRATE/D5W 8 MG/250 ML BAG IVPB ONE (22:10)
[2022-08-27] MEDS ORDERED: NOREPINEPHRINE BITARTRATE 4 MG/4 ML ML IV ONE ×2 (22:10→22:11)
[2022-08-27] MEDS ORDERED: ADENOSINE 6 MG/2 ML VIAL IVPUSH ONE ×2 (22:40)
[2022-08-27 22:50] LABS: ARTERIAL BLD GAS O2 SATURATION 79.5 % (95-98); ARTERIAL BLOOD GAS PO2 52.2 mmHg (80-100); ARTERIAL BLOOD GAS pH 7.211 (7.350-7.450)
[2022-08-27 22:53] LABS: BASO % 0.3 % (0-2.0); EOS % 0.9 % (0-4.5); HEMATOCRIT 52.1 % (35.4-49); HEMOGLOBIN 17.1 GM/dL (11.7-16.9); LYMPH % 14.9 % (8-40); MCH 31.3 pg (25.7-33.7); MCHC 32.8 g/dl (32.0-35.9); MEAN CELL VOLUME 95.3 fl (80-96); MEAN PLT VOLUME 10.2 fl (7.5-11.1); MONO % 5.1 % (3.8-10.2); NEUT % 78.8 % (42.8-82.8); PLATELET COUNT 297 10^3/uL (134-434); RBC 5.46 M/mm3 (4.00-5.60); WHITE BLOOD COUNT 18.6 K/mm3 (4.0-10.0)
[2022-08-27] MEDS ORDERED: MIDAZOLAM HCL 2 MG/2 ML SINGLE DOSE VIAL IVPUSH ONE (22:59)
[2022-08-27] MEDS ORDERED: ROCURONIUM BROMIDE 50 MG/5 ML VIAL IV ONE (22:59)
[2022-08-27] MEDS ORDERED: VANCOMYCIN 1 GM in D5W (PRE-DOCKED) 1,000 MG/250 ML IVPB ONE (22:59)
[2022-08-27] MEDS ORDERED: PIPERACILLIN/TAZOB 3.375 GM 3.375 GM in DEXTROSE 5%-WATER - 50 ML IVPB ONE (22:59)
[2022-08-27] MEDS ORDERED: SODIUM CHLORIDE 0.9% 500 ML INFUS.BAG IV ONE (23:00)
[2022-08-27] MEDS ORDERED: VANCOMYCIN/WATER FOR INJ (PEG) 1,000 MG/200 ML BAG IVPB ONE (23:03)
[2022-08-27] MEDS ORDERED: PIPERACILLIN/TAZOB 3.375 GM 3.375 GM/50 ML BAG IVPB ONE (23:03)
[2022-08-27 23:11] LABS: CHLORIDE 111 mmol/L (98-107); SODIUM 144 mmol/L (136-145)
[2022-08-27 23:12] LABS: CALCIUM 9.7 mg/dL (8.5-10.1)
[2022-08-27 23:13] LABS: ALBUMIN 2.6 g/dl (3.4-5.0); ANION GAP 11 MMOL/L (8-16); CO2 22 mmol/L (21-32); GLUCOSE,RANDOM 231 mg/dL (74-106); MAGNESIUM 2.4 mg/dL (1.8-2.4)
[2022-08-27 23:16] LABS: CREATININE 2.2 mg/dL (0.55-1.3); SGOT/AST 98 U/L (15-37); SGPT/ALT 62 U/L (13-61)
[2022-08-27 23:17] LABS: BILIRUBIN,TOTAL 3.4 mg/dL (0.2-1); TOT PROT 7.1 g/dl (6.4-8.2)
[2022-08-27 23:40] LABS: ALK PHOS 372 U/L (45-117); BLOOD UREA NITROGEN 56.4 mg/dL (7-18)
[2022-08-28 00:01] LABS: ALLENS TEST POSITIVE; ARTERIAL BLD GAS O2 SATURATION 99.2 % (95-98); ARTERIAL BLOOD GAS BASE EXCESS -11.9 mmol/L (-2-2); ARTERIAL BLOOD GAS PO2 229.9 mmHg (80-100)
[2022-08-28 00:02] LABS: VENT RATE 14
[2022-08-28 00:03] LABS: ARTERIAL BLOOD GAS pH 7.124 (7.350-7.450)
[2022-08-28] MEDS ORDERED: FENTANYL NS IVPB 500 MCG/100 ML BAG IVPB ONE (00:53)
[2022-08-28 01:03] LABS: EPI CELLS 19 /uL (0-25.1); HYALINE CASTS 11 /uL (0-3.1); URINE APPEARANCE TURBID; URINE BILIRUBIN 2+ (NEGATIVE); URINE COLOR ORANGE; URINE GLUCOSE (UA) NEGATIVE (NEGATIVE); URINE KETONE NEGATIVE (NEGATIVE); URINE LEUK ESTERASE 2+ (NEGATIVE); URINE NITRITE POSITIVE (NEGATIVE); URINE PROTEIN 2+ (NEGATIVE); URINE RBC 13440 /uL (0-23.9); URINE WBC 94 /uL (0-25.8)
[2022-08-28] MEDS ORDERED: LACTATED RINGERS SOLUTION 1000 ML INFUS.BAG IV ONE (02:33)
[2022-08-28] MEDS: PROPOFOL 1,000,000 MCG/100 ML VIAL IVPB SCH ×2 (02:46→17:15)
[2022-08-28] MEDS: MUPIROCIN 2% TOPICAL OINTMENT FOR DECOLONIZATION NS SCH ×3 (02:48→21:35)
[2022-08-28] MEDS ORDERED: VASOPRESSIN 20 UNITS/ML VIAL IV ONE (02:51)
[2022-08-28] MEDS ORDERED: MAGNESIUM SULF 50% (8.12 MEQ/2 ML-1 GM VIAL) ONE (03:04)
[2022-08-28] MEDS: VASOPRESSIN 40 UNITS/100 ML BAG IV SCH ×2 (03:06→18:25)
[2022-08-28] MEDS: FENTANYL NS IVPB 500 MCG/100 ML BAG IVPB SCH ×3 (03:06→13:17)
[2022-08-28] MEDS: HYDROCORTISONE SOD SUCCINATE 100 MG/2 ML VIAL IVPUSH SCH ×3 (03:07→17:15)
[2022-08-28 03:11] LABS: HEMATOCRIT 44.5 % (35.4-49); HEMOGLOBIN 14.4 GM/dL (11.7-16.9); MCH 30.8 pg (25.7-33.7); MCHC 32.4 g/dl (32.0-35.9); MEAN CELL VOLUME 94.9 fl (80-96); MEAN PLT VOLUME 9.4 fl (7.5-11.1); PLATELET COUNT 262 10^3/uL (134-434); RBC 4.69 M/mm3 (4.00-5.60); RDW 14.5 % (11.9-15.9); WHITE BLOOD COUNT 20.4 K/mm3 (4.0-10.0)
[2022-08-28 03:16] LABS: INR 1.66 (0.83-1.09); PROTHROMBIN TIME (PATIENT) 19.2 SEC (9.7-13.0)
[2022-08-28 03:30] LABS: BLOOD UREA NITROGEN 53.1 mg/dL (7-18)
[2022-08-28] MEDS ORDERED: MAGNESIUM SULF 50% (8.12 MEQ/2 ML-1 GM VIAL) IVPB ONE ×2 (03:30→04:00)
[2022-08-28 03:33] LABS: CREATININE 1.9 mg/dL (0.55-1.3)
[2022-08-28 03:34] LABS: BILIRUBIN,TOTAL 2.4 mg/dL (0.2-1); TOT PROT 5.2 g/dl (6.4-8.2)
[2022-08-28 03:34] LABS: ARTERIAL BLD GAS O2 SATURATION 94.4 % (95-98); ARTERIAL BLOOD GAS BASE EXCESS -9.2 mmol/L (-2-2); ARTERIAL BLOOD GAS PO2 79.1 mmHg (80-100); ARTERIAL BLOOD GAS pH 7.284 (7.350-7.450)
[2022-08-28] MEDS ORDERED: SODIUM BICARBONATE 8.4% 50 MEQ/50 ML DISP.SYRIN IVPUSH ONE (03:36)
[2022-08-28 03:37] LABS: ALLENS TEST POSITIVE
[2022-08-28 03:38] LABS: VENT MODE A/C; VENT RATE 22
[2022-08-28 03:43] LABS: ALBUMIN 1.9 g/dl (3.4-5.0); CALCIUM 8.1 mg/dL (8.5-10.1); LACTIC ACID 3.3 mmol/L (0.4-2.0)
[2022-08-28] MEDS ORDERED: SODIUM BICARBONATE 8.4% 50 MEQ/50 ML VIAL ONE (03:46)
[2022-08-28] MEDS: NOREPINEPHRINE BITARTRATE/D5W 8 MG/250 ML BAG IVPB SCH ×3 (03:48→11:34)
[2022-08-28] MEDS: PIPERACILLIN/TAZOB 2.25 GM 2.25 GM in DEXTROSE 5%-WATER - 50 ML IVPB SCH ×4 (03:51→17:15)
[2022-08-28 04:52] LABS: MAGNESIUM 1.9 mg/dL (1.8-2.4)
[2022-08-28 04:56] LABS: PHOSPHOROUS 4.8 mg/dL (2.5-4.9)
[2022-08-28] MEDS ORDERED: HEPARIN NA (PORCINE) 5,000 UNITS/ML 1ML VIAL SQ SCH (06:00)
[2022-08-28 07:39] LABS: ANISOCYTOSIS 2+; MACROCYTOSIS 0; OVALOCYTE 2+; TEAR DROP CELLS 1+
[2022-08-28 08:26] LABS: URINE BACTERIA 2 /uL (0-1359)
[2022-08-28] MEDS ORDERED: SODIUM CHLORIDE 0.45% 1,000 ML IV SCH (08:30)
[2022-08-28] MEDS: PANTOPRAZOLE SODIUM 40 MG VIAL IVPUSH SCH (09:40)
[2022-08-28] MEDS: ACETAMINOPHEN 1000 MG/100 ML BAG IVPB PRN ×2 (10:30→18:13)
[2022-08-28] MEDS: SODIUM CHLORIDE 0.45% 1,000 ML IV SCH (11:34)
[2022-08-28] MEDS ORDERED: HEPARIN NA (PORCINE) 5,000 UNITS/ML 1ML VIAL IVPUSH PRN ×3 (11:55→12:00)
[2022-08-28] MEDS ORDERED: VANCOMYCIN/WATER FOR INJ (PEG) 1,000 MG/200 ML BAG IVPB ONE (12:00)
[2022-08-28] MEDS ORDERED: HEPARIN SOD,PORK IN 0.45% NACL 25,000 UNITS/500 ML INFUS.BAG IVPB SCH (12:00)
[2022-08-28] MEDS: HEPARIN INFUSION - 25,000 UNITS/500 ML INFUS.BAG IVPB SCH (12:19)
[2022-08-28 13:14] LABS: LACTIC ACID 3.8 mmol/L (0.4-2.0)
[2022-08-28 15:39] LABS: LACTIC ACID 3.8 mmol/L (0.4-2.0)
[2022-08-28] MEDS: INSULIN SLIDING SCALE (NOVOLOG) 1 VIAL SQ SCH ×2 (17:27→21:34)
[2022-08-28 19:17] LABS: LACTIC ACID 3.6 mmol/L (0.4-2.0)
[2022-08-28] MEDS: CHLORHEXIDINE GLUCONATE 4% CLEANSER FOR DECOLONIZATION TP SCH (21:35)
[2022-08-29] MEDS: VASOPRESSIN 40 UNITS/100 ML BAG IV SCH (01:10)
[2022-08-29] MEDS: FENTANYL NS IVPB 500 MCG/100 ML BAG IVPB SCH ×3 (01:10→21:43)
[2022-08-29] MEDS: NOREPINEPHRINE BITARTRATE/D5W 8 MG/250 ML BAG IVPB SCH ×3 (01:11→10:51)
[2022-08-29] MEDS: PIPERACILLIN/TAZOB 2.25 GM 2.25 GM in DEXTROSE 5%-WATER - 50 ML IVPB SCH ×3 (01:11→17:38)
[2022-08-29] MEDS: HYDROCORTISONE SOD SUCCINATE 100 MG/2 ML VIAL IVPUSH SCH ×3 (01:11→17:38)
[2022-08-29 06:44] LABS: HEMATOCRIT 41.8 % (35.4-49); HEMOGLOBIN 13.7 GM/dL (11.7-16.9); MCH 30.8 pg (25.7-33.7); MCHC 32.7 g/dl (32.0-35.9); MEAN PLT VOLUME 9.5 fl (7.5-11.1); PLATELET COUNT 238 10^3/uL (134-434); RBC 4.45 M/mm3 (4.00-5.60); RDW 14.4 % (11.9-15.9)
[2022-08-29] MEDS: PROPOFOL 1,000,000 MCG/100 ML VIAL IVPB SCH (06:48)
[2022-08-29] MEDS: INSULIN SLIDING SCALE (NOVOLOG) 1 VIAL SQ SCH ×4 (06:49→21:10)
[2022-08-29 06:57] LABS: INR 1.75 (0.83-1.09); PROTHROMBIN TIME (PATIENT) 20.2 SEC (9.7-13.0)
[2022-08-29 07:06] LABS: ALBUMIN 1.8 g/dl (3.4-5.0); BLOOD UREA NITROGEN 61.1 mg/dL (7-18); MAGNESIUM 2.4 mg/dL (1.8-2.4)
[2022-08-29 07:09] LABS: CREATININE 1.2 mg/dL (0.55-1.3); PHOSPHOROUS 3.6 mg/dL (2.5-4.9)
[2022-08-29 07:10] LABS: BILIRUBIN,TOTAL 1.6 mg/dL (0.2-1)
[2022-08-29 07:11] LABS: TOT PROT 5.2 g/dl (6.4-8.2)
[2022-08-29] MEDS ORDERED: KCL 10 MEQ IVPB 10 MEQ/100 ML INFUS.BAG IVPB SCH (07:45)
[2022-08-29] MEDS: PANTOPRAZOLE SODIUM 40 MG VIAL IVPUSH SCH (09:05)
[2022-08-29] MEDS: MUPIROCIN 2% TOPICAL OINTMENT FOR DECOLONIZATION NS SCH ×2 (09:05→21:43)
[2022-08-29] MEDS: KCL 10 MEQ IVPB 10 MEQ/100 ML INFUS.BAG IVPB SCH ×3 (09:05→12:15)
[2022-08-29 09:20] LABS: ANISOCYTOSIS 0; MACROCYTOSIS 1+
[2022-08-29] MEDS ORDERED: VANCOMYCIN 1 GM in D5W (PRE-DOCKED) 1,000 MG/250 ML IVPB SCH (10:00)
[2022-08-29] MEDS: SODIUM CHLORIDE 0.45% 1,000 ML IV SCH ×2 (16:38→21:44)
[2022-08-29] MEDS: HEPARIN INFUSION - 25,000 UNITS/500 ML INFUS.BAG IVPB SCH (21:42)
[2022-08-29] MEDS: CHLORHEXIDINE GLUCONATE 4% CLEANSER FOR DECOLONIZATION TP SCH (21:43)
[2022-08-30] MEDS: FENTANYL NS IVPB 500 MCG/100 ML BAG IVPB SCH ×2 (01:29→06:12)
[2022-08-30] MEDS: VASOPRESSIN 40 UNITS/100 ML BAG IV SCH (01:29)
[2022-08-30] MEDS: PIPERACILLIN/TAZOB 2.25 GM 2.25 GM in DEXTROSE 5%-WATER - 50 ML IVPB SCH ×3 (01:31→17:14)
[2022-08-30] MEDS: HYDROCORTISONE SOD SUCCINATE 100 MG/2 ML VIAL IVPUSH SCH ×3 (01:32→17:15)
[2022-08-30] MEDS: NOREPINEPHRINE BITARTRATE/D5W 8 MG/250 ML BAG IVPB SCH (04:00)
[2022-08-30] MEDS: INSULIN SLIDING SCALE (NOVOLOG) 1 VIAL SQ SCH ×4 (06:10→22:47)
[2022-08-30] MEDS: PROPOFOL 1,000,000 MCG/100 ML VIAL IVPB SCH (06:10)
[2022-08-30 07:14] LABS: BASO % 0.1 % (0-2.0); HEMATOCRIT 39.2 % (35.4-49); HEMOGLOBIN 12.9 GM/dL (11.7-16.9); LYMPH % 4.9 % (8-40); MCH 30.8 pg (25.7-33.7); MCHC 32.9 g/dl (32.0-35.9); MEAN CELL VOLUME 93.5 fl (80-96); MEAN PLT VOLUME 9.8 fl (7.5-11.1); PLATELET COUNT 210 10^3/uL (134-434); RBC 4.19 M/mm3 (4.00-5.60); RDW 14.6 % (11.9-15.9); WHITE BLOOD COUNT 24.1 K/mm3 (4.0-10.0)
[2022-08-30 07:42] LABS: CALCIUM 8.1 mg/dL (8.5-10.1)
[2022-08-30 07:43] LABS: ALBUMIN 1.7 g/dl (3.4-5.0); BLOOD UREA NITROGEN 51.3 mg/dL (7-18); MAGNESIUM 2.4 mg/dL (1.8-2.4)
[2022-08-30 07:46] LABS: CREATININE 0.7 mg/dL (0.55-1.3); PHOSPHOROUS 1.9 mg/dL (2.5-4.9)
[2022-08-30 07:48] LABS: BILIRUBIN,TOTAL 1.4 mg/dL (0.2-1)
[2022-08-30] MEDS: HEPARIN NA (PORCINE) 5,000 UNITS/ML 1ML VIAL IVPUSH PRN (07:56)
[2022-08-30] MEDS: PANTOPRAZOLE SODIUM 40 MG VIAL IVPUSH SCH (09:04)
[2022-08-30] MEDS: MUPIROCIN 2% TOPICAL OINTMENT FOR DECOLONIZATION NS SCH ×2 (09:05→22:47)
[2022-08-30 09:52] LABS: ANISOCYTOSIS 0; MACROCYTOSIS 0
[2022-08-30 09:53] LABS: PLATELET ESTIMATE ADEQUATE
[2022-08-30] MEDS: SODIUM CHLORIDE 0.45% 1,000 ML IV SCH ×2 (11:00→22:46)
[2022-08-30] MEDS: CHLORHEXIDINE GLUCONATE 4% CLEANSER FOR DECOLONIZATION TP SCH (22:47)
[2022-08-31] MEDS: HEPARIN INFUSION - 25,000 UNITS/500 ML INFUS.BAG IVPB SCH
[2022-08-31] MEDS: HYDROCORTISONE SOD SUCCINATE 100 MG/2 ML VIAL IVPUSH SCH ×3 (02:00→17:11)
[2022-08-31] MEDS: PIPERACILLIN/TAZOB 2.25 GM 2.25 GM in DEXTROSE 5%-WATER - 50 ML IVPB SCH ×3 (02:00→17:09)
[2022-08-31] MEDS: PROPOFOL 1,000,000 MCG/100 ML VIAL IVPB SCH (03:24)
[2022-08-31] MEDS: SODIUM CHLORIDE 0.45% 1,000 ML IV SCH ×3 (06:46→22:00)
[2022-08-31] MEDS: INSULIN SLIDING SCALE (NOVOLOG) 1 VIAL SQ SCH ×4 (06:48→21:22)
[2022-08-31 06:58] LABS: HEMATOCRIT 39.1 % (35.4-49); MCH 30.9 pg (25.7-33.7); MCHC 33.3 g/dl (32.0-35.9); MEAN CELL VOLUME 92.7 fl (80-96); MEAN PLT VOLUME 9.8 fl (7.5-11.1); PLATELET COUNT 222 10^3/uL (134-434); RBC 4.22 M/mm3 (4.00-5.60); RDW 14.2 % (11.9-15.9); WHITE BLOOD COUNT 18.8 K/mm3 (4.0-10.0)
[2022-08-31 07:22] LABS: CALCIUM 7.6 mg/dL (8.5-10.1)
[2022-08-31 07:23] LABS: ALBUMIN 1.6 g/dl (3.4-5.0); MAGNESIUM 2.1 mg/dL (1.8-2.4)
[2022-08-31 07:25] LABS: CREATININE 0.6 mg/dL (0.55-1.3); PHOSPHOROUS 1.4 mg/dL (2.5-4.9)
[2022-08-31 07:27] LABS: BILIRUBIN,TOTAL 1.2 mg/dL (0.2-1)
[2022-08-31 09:40] LABS: ANISOCYTOSIS 0; MACROCYTOSIS 0
[2022-08-31] MEDS: PANTOPRAZOLE SODIUM 40 MG VIAL IVPUSH SCH (09:48)
[2022-08-31] MEDS ORDERED: ACETAMINOPHEN 1000 MG/100 ML BAG IVPB PRN (10:18)
[2022-08-31] MEDS: MUPIROCIN 2% TOPICAL OINTMENT FOR DECOLONIZATION NS SCH ×2 (14:31→21:19)
[2022-08-31] MEDS: HEPARIN NA (PORCINE) 5,000 UNITS/ML 1ML VIAL IVPUSH PRN (18:31)
[2022-08-31] MEDS: CHLORHEXIDINE GLUCONATE 4% CLEANSER FOR DECOLONIZATION TP SCH (21:19)
[2022-09-01] MEDS: PIPERACILLIN/TAZOB 2.25 GM 2.25 GM in DEXTROSE 5%-WATER - 50 ML IVPB SCH ×3 (01:04→17:42)
[2022-09-01] MEDS: HYDROCORTISONE SOD SUCCINATE 100 MG/2 ML VIAL IVPUSH SCH (01:04)
[2022-09-01] MEDS: HEPARIN INFUSION - 25,000 UNITS/500 ML INFUS.BAG IVPB SCH (01:47)
[2022-09-01] MEDS: HEPARIN NA (PORCINE) 5,000 UNITS/ML 1ML VIAL IVPUSH PRN (01:48)
[2022-09-01] MEDS: INSULIN SLIDING SCALE (NOVOLOG) 1 VIAL SQ SCH ×4 (06:32→22:48)
[2022-09-01] MEDS: PROPOFOL 1,000,000 MCG/100 ML VIAL IVPB SCH (06:33)
[2022-09-01 08:15] LABS: HEMATOCRIT 40.3 % (35.4-49); HEMOGLOBIN 13.6 GM/dL (11.7-16.9); MCH 31.1 pg (25.7-33.7); MCHC 33.7 g/dl (32.0-35.9); MEAN CELL VOLUME 92.1 fl (80-96); MEAN PLT VOLUME 9.8 fl (7.5-11.1); PLATELET COUNT 235 10^3/uL (134-434); RBC 4.38 M/mm3 (4.00-5.60); WHITE BLOOD COUNT 16.7 K/mm3 (4.0-10.0)
[2022-09-01 08:38] LABS: ALBUMIN 1.6 g/dl (3.4-5.0); BLOOD UREA NITROGEN 25.4 mg/dL (7-18); CALCIUM 7.5 mg/dL (8.5-10.1)
[2022-09-01 08:39] LABS: BILIRUBIN,TOTAL 1.5 mg/dL (0.2-1); TOT PROT 4.9 g/dl (6.4-8.2)
[2022-09-01 08:41] LABS: CREATININE 0.5 mg/dL (0.55-1.3)
[2022-09-01] MEDS: PANTOPRAZOLE SODIUM 40 MG VIAL IVPUSH SCH (09:19)
[2022-09-01] MEDS: DEXMEDETOMIDINE PREMIX 400 MCG/100 ML BAG IVPB SCH (09:20)
[2022-09-01] MEDS: MUPIROCIN 2% TOPICAL OINTMENT FOR DECOLONIZATION NS SCH ×2 (09:20→22:48)
[2022-09-01] MEDS: APIXABAN 5 MG TABLET PO SCH ×2 (09:20→22:48)
[2022-09-01 11:39] VITALS: BMI 26.7
[2022-09-01] MEDS: SODIUM CHLORIDE 0.45% 1,000 ML IV SCH (17:03)
[2022-09-01] MEDS: CHLORHEXIDINE GLUCONATE 4% CLEANSER FOR DECOLONIZATION TP SCH (22:48)
[2022-09-02] MEDS: PIPERACILLIN/TAZOB 2.25 GM 2.25 GM in DEXTROSE 5%-WATER - 50 ML IVPB SCH ×2 (01:43→09:02)
[2022-09-02] MEDS: INSULIN SLIDING SCALE (NOVOLOG) 1 VIAL SQ SCH ×4 (06:18→21:32)
[2022-09-02 07:20] LABS: HEMATOCRIT 39.9 % (35.4-49); HEMOGLOBIN 13.6 GM/dL (11.7-16.9); MCH 31.5 pg (25.7-33.7); MEAN CELL VOLUME 92.4 fl (80-96); MEAN PLT VOLUME 9.4 fl (7.5-11.1); PLATELET COUNT 222 10^3/uL (134-434); RBC 4.32 M/mm3 (4.00-5.60); RDW 14.3 % (11.9-15.9); WHITE BLOOD COUNT 17.7 K/mm3 (4.0-10.0)
[2022-09-02 07:42] LABS: CALCIUM 7.4 mg/dL (8.5-10.1)
[2022-09-02 07:43] LABS: ALBUMIN 1.6 g/dl (3.4-5.0); BLOOD UREA NITROGEN 24.9 mg/dL (7-18); MAGNESIUM 2.1 mg/dL (1.8-2.4)
[2022-09-02 07:45] LABS: BILIRUBIN,TOTAL 1.3 mg/dL (0.2-1); TOT PROT 4.8 g/dl (6.4-8.2)
[2022-09-02 07:46] LABS: CREATININE 0.6 mg/dL (0.55-1.3)
[2022-09-02] MEDS: PANTOPRAZOLE SODIUM 40 MG VIAL IVPUSH SCH (09:02)
[2022-09-02] MEDS: APIXABAN 5 MG TABLET PO SCH ×2 (09:02→21:26)
[2022-09-02] MEDS ORDERED: FUROSEMIDE 40 MG/4 ML INJECTABLE VIAL IVPUSH ONE (09:50)
[2022-09-02] MEDS ORDERED: NOREPINEPHRINE BITARTRATE/D5W 8 MG/250 ML BAG IVPB SCH (10:30)
[2022-09-02] MEDS ORDERED: NOREPINEPHRINE BITARTRATE 16,000 MCG in SODIUM CHLORIDE 484 ML IV SCH (11:00)
[2022-09-02 11:33] LABS: RETICULOCYTES 1.16 % (0.5-1.5)
[2022-09-02] MEDS: NOREPINEPHRINE 0.9 % NACL 8 MG/250 ML BAG IVPB SCH (11:39)
[2022-09-02] MEDS: CEFTRIAXONE 1 GM in DEXTROSE 5%-WATER - 50 ML IVPB SCH (13:39)
[2022-09-02] MEDS: DEXMEDETOMIDINE PREMIX 400 MCG/100 ML BAG IVPB SCH (16:26)
[2022-09-02] MEDS: CHLORHEXIDINE GLUCONATE 4% CLEANSER FOR DECOLONIZATION TP SCH (21:27)
[2022-09-03] MEDS: DEXMEDETOMIDINE PREMIX 400 MCG/100 ML BAG IVPB SCH ×2 (02:00→20:00)
[2022-09-03] MEDS: INSULIN SLIDING SCALE (NOVOLOG) 1 VIAL SQ SCH ×4 (06:29→21:16)
[2022-09-03 06:45] LABS: HEMATOCRIT 39.1 % (35.4-49); HEMOGLOBIN 13.1 GM/dL (11.7-16.9); MCHC 33.6 g/dl (32.0-35.9); MEAN CELL VOLUME 92.4 fl (80-96); MEAN PLT VOLUME 9.4 fl (7.5-11.1); PLATELET COUNT 259 10^3/uL (134-434); RBC 4.23 M/mm3 (4.00-5.60); RDW 14.5 % (11.9-15.9); WHITE BLOOD COUNT 18.7 K/mm3 (4.0-10.0)
[2022-09-03 07:07] LABS: ALBUMIN 1.4 g/dl (3.4-5.0); BLOOD UREA NITROGEN 26.5 mg/dL (7-18); CALCIUM 7.5 mg/dL (8.5-10.1)
[2022-09-03 07:11] LABS: CREATININE 0.6 mg/dL (0.55-1.3)
[2022-09-03 07:13] LABS: BILIRUBIN,TOTAL 1.2 mg/dL (0.2-1); TOT PROT 4.5 g/dl (6.4-8.2)
[2022-09-03] MEDS ORDERED: NAPH,MB-DB/K PH,MBDB POWDER PACKET PO ONE (07:19)
[2022-09-03 09:41] LABS: ANISOCYTOSIS 0; HELMET CELLS 0; HOWELL-JOLLY BODIES 0; MACROCYTOSIS 0; OVALOCYTE 0; ROULEAU 0; SICKELED CELLS 0; TARGET CELLS 0; TEAR DROP CELLS 0; TOXIC GRANULATION 0
[2022-09-03] MEDS: APIXABAN 5 MG TABLET PO SCH (09:51)
[2022-09-03] MEDS: PANTOPRAZOLE SODIUM 40 MG VIAL IVPUSH SCH (09:51)
[2022-09-03] MEDS: CEFTRIAXONE 1 GM in DEXTROSE 5%-WATER - 50 ML IVPB SCH (09:51)
[2022-09-03] MEDS ORDERED: FUROSEMIDE 40 MG/4 ML INJECTABLE VIAL IVPUSH ONE (10:23)
[2022-09-03 14:41] LABS: ARTERIAL BLD GAS O2 SATURATION 97.5 % (95-98); ARTERIAL BLOOD GAS PO2 90.3 mmHg (80-100); ARTERIAL BLOOD GAS pH 7.487 (7.350-7.450)
[2022-09-03] MEDS: NOREPINEPHRINE 0.9 % NACL 8 MG/250 ML BAG IVPB SCH (16:29)
[2022-09-03] MEDS: CHLORHEXIDINE GLUCONATE 4% CLEANSER FOR DECOLONIZATION TP SCH (21:16)
[2022-09-04] MEDS: INSULIN SLIDING SCALE (NOVOLOG) 1 VIAL SQ SCH ×4 (06:31→22:58)
[2022-09-04 08:39] LABS: MCH 31.7 pg (25.7-33.7); MCHC 34.2 g/dl (32.0-35.9); MEAN CELL VOLUME 92.6 fl (80-96); MEAN PLT VOLUME 9.2 fl (7.5-11.1); PLATELET COUNT 299 10^3/uL (134-434); RBC 4.11 M/mm3 (4.00-5.60); RDW 14.7 % (11.9-15.9); WHITE BLOOD COUNT 19.9 K/mm3 (4.0-10.0)
[2022-09-04 08:59] LABS: CALCIUM 7.6 mg/dL (8.5-10.1)
[2022-09-04 09:00] LABS: ALBUMIN 1.4 g/dl (3.4-5.0); BLOOD UREA NITROGEN 29.9 mg/dL (7-18)
[2022-09-04 09:03] LABS: CREATININE 0.6 mg/dL (0.55-1.3); PHOSPHOROUS 2.5 mg/dL (2.5-4.9)
[2022-09-04 09:04] LABS: BILIRUBIN,TOTAL 1.5 mg/dL (0.2-1); TOT PROT 4.6 g/dl (6.4-8.2)
[2022-09-04] MEDS ORDERED: CEFEPIME 0.5 GM in DEXTROSE 5%-WATER - 100 ML IVPB SCH (10:30)
[2022-09-04 10:39] LABS: ANISOCYTOSIS 0; HELMET CELLS 0; HOWELL-JOLLY BODIES 0; MACROCYTOSIS 0; OVALOCYTE 0; ROULEAU 0; SICKELED CELLS 0; TARGET CELLS 0; TEAR DROP CELLS 0; TOXIC GRANULATION 0
[2022-09-04] MEDS: PANTOPRAZOLE SODIUM 40 MG VIAL IVPUSH SCH (11:07)
[2022-09-04] MEDS: NOREPINEPHRINE 0.9 % NACL 8 MG/250 ML BAG IVPB SCH (11:07)
[2022-09-04] MEDS ORDERED: FUROSEMIDE 40 MG/4 ML INJECTABLE VIAL IVPUSH ONE (12:00)
[2022-09-04] MEDS ORDERED: ALBUMIN HUMAN 25% 100 ML VIAL IV ONE (12:00)
[2022-09-04] MEDS: DEXMEDETOMIDINE PREMIX 400 MCG/100 ML BAG IVPB SCH (14:13)
[2022-09-04] MEDS: CHLORHEXIDINE GLUCONATE 4% CLEANSER FOR DECOLONIZATION TP SCH (22:50)
[2022-09-05 05:01] LABS: EPI CELLS 6 /uL (0-25.1); HYALINE CASTS 0 /uL (0-3.1); PH,URINE 7.5 (5.0-8.0); URINE APPEARANCE CLOUDY; URINE BACTERIA 1 /uL (0-1359); URINE BILIRUBIN 1+ (NEGATIVE); URINE COLOR DK YELLOW; URINE GLUCOSE (UA) NEGATIVE (NEGATIVE); URINE KETONE TRACE (NEGATIVE); URINE LEUK ESTERASE TRACE (NEGATIVE); URINE NITRITE NEGATIVE (NEGATIVE); URINE PROTEIN TRACE (NEGATIVE); URINE WBC 9 /uL (0-25.8)
[2022-09-05] MEDS: INSULIN SLIDING SCALE (NOVOLOG) 1 VIAL SQ SCH ×4 (06:26→21:52)
[2022-09-05] MEDS ORDERED: QUEtiapine FUMARATE 25 MG TABLET PO PRN (06:34)
[2022-09-05 06:47] LABS: URINE RBC 50.5 /uL (0-23.9)
[2022-09-05 08:19] LABS: BASO % 0.1 % (0-2.0); EOS % 2.7 % (0-4.5); HEMOGLOBIN 11.8 GM/dL (11.7-16.9); LYMPH % 10.2 % (8-40); MCH 31.2 pg (25.7-33.7); MCHC 33.8 g/dl (32.0-35.9); MEAN CELL VOLUME 92.3 fl (80-96); MONO % 7.5 % (3.8-10.2); NEUT % 79.5 % (42.8-82.8); PLATELET COUNT 319 10^3/uL (134-434); RBC 3.79 M/mm3 (4.00-5.60); RDW 13.8 % (11.9-15.9); WHITE BLOOD COUNT 14.7 K/mm3 (4.0-10.0)
[2022-09-05 08:37] LABS: CALCIUM 7.8 mg/dL (8.5-10.1)
[2022-09-05 08:38] LABS: MAGNESIUM 1.9 mg/dL (1.8-2.4)
[2022-09-05 08:40] LABS: BLOOD UREA NITROGEN 20.2 mg/dL (7-18)
[2022-09-05 08:41] LABS: CREATININE 0.4 mg/dL (0.55-1.3); PHOSPHOROUS 2.1 mg/dL (2.5-4.9)
[2022-09-05 08:43] LABS: BILIRUBIN,TOTAL 1.7 mg/dL (0.2-1); TOT PROT 4.6 g/dl (6.4-8.2)
[2022-09-05 09:01] LABS: ALBUMIN 1.8 g/dl (3.4-5.0)
[2022-09-05] MEDS ORDERED: NAPH,MB-DB/K PH,MBDB POWDER PACKET PO ONE ×2 (09:21→19:15)
[2022-09-05] MEDS ORDERED: CEFEPIME 0.5 GM in DEXTROSE 5%-WATER - 100 ML IVPB ONE (10:00)
[2022-09-05] MEDS ORDERED: VANCOMYCIN/WATER 1,250 MG/250 ML BAG (RESTRICTED TO ID ONLY) IVPB ONE (11:00)
[2022-09-05] MEDS: PANTOPRAZOLE SODIUM 40 MG VIAL IVPUSH SCH (12:09)
[2022-09-05] MEDS: CHLORHEXIDINE GLUCONATE 4% CLEANSER FOR DECOLONIZATION TP SCH (21:48)
[2022-09-06] MEDS: INSULIN SLIDING SCALE (NOVOLOG) 1 VIAL SQ SCH ×4 (07:00→22:55)
[2022-09-06 07:25] LABS: BASO % 0.2 % (0-2.0); EOS % 1.6 % (0-4.5); HEMATOCRIT 34.4 % (35.4-49); HEMOGLOBIN 11.9 GM/dL (11.7-16.9); LYMPH % 10.6 % (8-40); MCH 31.9 pg (25.7-33.7); MCHC 34.7 g/dl (32.0-35.9); MEAN CELL VOLUME 92.1 fl (80-96); MEAN PLT VOLUME 8.4 fl (7.5-11.1); MONO % 9.8 % (3.8-10.2); NEUT % 77.8 % (42.8-82.8); PLATELET COUNT 326 10^3/uL (134-434); RBC 3.74 M/mm3 (4.00-5.60); RDW 13.9 % (11.9-15.9); WHITE BLOOD COUNT 16.8 K/mm3 (4.0-10.0)
[2022-09-06 07:45] LABS: ALBUMIN 1.7 g/dl (3.4-5.0); CALCIUM 7.8 mg/dL (8.5-10.1)
[2022-09-06 07:46] LABS: MAGNESIUM 1.7 mg/dL (1.8-2.4)
[2022-09-06 07:47] LABS: CREATININE 0.4 mg/dL (0.55-1.3)
[2022-09-06 07:48] LABS: BILIRUBIN,TOTAL 1.6 mg/dL (0.2-1)
[2022-09-06 07:49] LABS: PHOSPHOROUS 2.1 mg/dL (2.5-4.9)
[2022-09-06 07:50] LABS: TOT PROT 4.8 g/dl (6.4-8.2)
[2022-09-06] MEDS ORDERED: MAGNESIUM SULF 50% (8.12 MEQ/2 ML-1 GM VIAL) IVPB ONE (10:00)
[2022-09-06] MEDS ORDERED: ENOXAPARIN NA (PORCINE) 40 MG/0.4 ML DISP.SYRIN SQ SCH (10:00)
[2022-09-06] MEDS ORDERED: CEFEPIME 0.5 GM in DEXTROSE 5%-WATER - 50 ML IVPB SCH (10:00)
[2022-09-06] MEDS ORDERED: POTASSIUM PHOSPHATE 30 MM in SODIUM CHLORIDE 500 ML IVPB ONE (10:00)
[2022-09-06] MEDS: PANTOPRAZOLE SODIUM 40 MG VIAL IVPUSH SCH (10:48)
[2022-09-06] MEDS: CHLORHEXIDINE GLUCONATE 4% CLEANSER FOR DECOLONIZATION TP SCH (22:55)
[2022-09-07] MEDS ORDERED: NAPH,MB-DB/K PH,MBDB POWDER PACKET PO ONE (07:09)
[2022-09-07] MEDS ORDERED: QUEtiapine FUMARATE 25 MG TABLET PO PRN (07:09)
[2022-09-07] MEDS: INSULIN SLIDING SCALE (NOVOLOG) 1 VIAL SQ SCH ×4 (08:11→21:46)
[2022-09-07] MEDS: PANTOPRAZOLE SODIUM 40 MG VIAL IVPUSH SCH (09:45)
[2022-09-07] MEDS: ENOXAPARIN NA (PORCINE) 40 MG/0.4 ML DISP.SYRIN SQ SCH (09:45)
[2022-09-07] MEDS ORDERED: CEFEPIME 0.5 GM in DEXTROSE 5%-WATER - 50 ML IVPB SCH (10:00)
[2022-09-07] MEDS: CEFEPIME 1 GM in DEXTROSE 5%-WATER 100 ML IVPB SCH ×2 (16:47→17:25)
[2022-09-07] MEDS ORDERED: ACETAMINOPHEN 1000 MG/100 ML BAG IVPB ONE (20:18)
[2022-09-07] MEDS: CHLORHEXIDINE GLUCONATE 4% CLEANSER FOR DECOLONIZATION TP SCH (21:54)
[2022-09-08] MEDS: CEFEPIME 1 GM in DEXTROSE 5%-WATER 100 ML IVPB SCH ×3 (01:52→17:08)
[2022-09-08] MEDS: INSULIN SLIDING SCALE (NOVOLOG) 1 VIAL SQ SCH ×4 (06:08→22:20)
[2022-09-08] MEDS: ENOXAPARIN NA (PORCINE) 40 MG/0.4 ML DISP.SYRIN SQ SCH (09:18)
[2022-09-08] MEDS: PANTOPRAZOLE SODIUM 40 MG VIAL IVPUSH SCH (09:20)
[2022-09-08] MEDS: CHLORHEXIDINE GLUCONATE 4% CLEANSER FOR DECOLONIZATION TP SCH (22:20)
[2022-09-09] MEDS: CEFEPIME 1 GM in DEXTROSE 5%-WATER 100 ML IVPB SCH ×3 (01:24→17:36)
[2022-09-09] MEDS: INSULIN SLIDING SCALE (NOVOLOG) 1 VIAL SQ SCH ×4 (06:40→21:29)
[2022-09-09 07:36] LABS: BASO % 0.9 % (0-2.0); EOS % 1.3 % (0-4.5); HEMATOCRIT 38.9 % (35.4-49); HEMOGLOBIN 13.1 GM/dL (11.7-16.9); LYMPH % 9.6 % (8-40); MCH 31.5 pg (25.7-33.7); MCHC 33.8 g/dl (32.0-35.9); MEAN CELL VOLUME 93.4 fl (80-96); MEAN PLT VOLUME 8.7 fl (7.5-11.1); MONO % 8.8 % (3.8-10.2); NEUT % 79.4 % (42.8-82.8); PLATELET COUNT 437 10^3/uL (134-434); RBC 4.16 M/mm3 (4.00-5.60); RDW 14.4 % (11.9-15.9); WHITE BLOOD COUNT 17.9 K/mm3 (4.0-10.0)
[2022-09-09 07:56] LABS: CALCIUM 8.3 mg/dL (8.5-10.1)
[2022-09-09 07:57] LABS: ALBUMIN 1.8 g/dl (3.4-5.0)
[2022-09-09 08:00] LABS: CREATININE 0.9 mg/dL (0.55-1.3)
[2022-09-09 08:01] LABS: BILIRUBIN,TOTAL 1.4 mg/dL (0.2-1)
[2022-09-09 08:02] LABS: TOT PROT 5.6 g/dl (6.4-8.2)
[2022-09-09 08:13] LABS: BLOOD UREA NITROGEN 30.6 mg/dL (7-18)
[2022-09-09] MEDS: ENOXAPARIN NA (PORCINE) 40 MG/0.4 ML DISP.SYRIN SQ SCH (10:04)
[2022-09-09] MEDS: PANTOPRAZOLE SODIUM 40 MG VIAL IVPUSH SCH (10:04)
[2022-09-09] MEDS ORDERED: SODIUM CHLORIDE 0.45% 1,000 ML IV SCH (14:15)
[2022-09-09] MEDS: CHLORHEXIDINE GLUCONATE 4% CLEANSER FOR DECOLONIZATION TP SCH (21:25)
[2022-09-10] MEDS: CEFEPIME 1 GM in DEXTROSE 5%-WATER 100 ML IVPB SCH ×3 (02:36→17:39)
[2022-09-10] MEDS: INSULIN SLIDING SCALE (NOVOLOG) 1 VIAL SQ SCH ×4 (06:50→22:04)
[2022-09-10 07:47] LABS: CALCIUM 7.7 mg/dL (8.5-10.1)
[2022-09-10 07:48] LABS: ALBUMIN 1.5 g/dl (3.4-5.0)
[2022-09-10 07:51] LABS: CREATININE 0.6 mg/dL (0.55-1.3)
[2022-09-10 07:53] LABS: BILIRUBIN,TOTAL 0.7 mg/dL (0.2-1); TOT PROT 5.2 g/dl (6.4-8.2)
[2022-09-10] MEDS: PANTOPRAZOLE SODIUM 40 MG VIAL IVPUSH SCH (11:27)
[2022-09-10] MEDS: ENOXAPARIN NA (PORCINE) 40 MG/0.4 ML DISP.SYRIN SQ SCH (11:27)
[2022-09-10] MEDS ORDERED: SODIUM CHLORIDE 0.45% 1,000 ML IV SCH (13:45)
[2022-09-10] MEDS: CHLORHEXIDINE GLUCONATE 4% CLEANSER FOR DECOLONIZATION TP SCH (22:05)
[2022-09-11] MEDS: CEFEPIME 1 GM in DEXTROSE 5%-WATER 100 ML IVPB SCH ×3 (02:33→18:21)
[2022-09-11] MEDS: INSULIN SLIDING SCALE (NOVOLOG) 1 VIAL SQ SCH ×4 (06:02→23:21)
[2022-09-11 07:02] LABS: BASO % 0.8 % (0-2.0); EOS % 3.4 % (0-4.5); HEMATOCRIT 34.6 % (35.4-49); HEMOGLOBIN 11.6 GM/dL (11.7-16.9); LYMPH % 11.6 % (8-40); MCH 31.2 pg (25.7-33.7); MCHC 33.5 g/dl (32.0-35.9); MEAN CELL VOLUME 93.3 fl (80-96); MEAN PLT VOLUME 9.1 fl (7.5-11.1); NEUT % 76.2 % (42.8-82.8); PLATELET COUNT 324 10^3/uL (134-434); RBC 3.71 M/mm3 (4.00-5.60); RDW 14.3 % (11.9-15.9); WHITE BLOOD COUNT 11.5 K/mm3 (4.0-10.0)
[2022-09-11 07:13] LABS: ALBUMIN 1.5 g/dl (3.4-5.0); BLOOD UREA NITROGEN 21.1 mg/dL (7-18); CALCIUM 7.5 mg/dL (8.5-10.1)
[2022-09-11 07:16] LABS: CREATININE 0.4 mg/dL (0.55-1.3)
[2022-09-11 07:18] LABS: BILIRUBIN,TOTAL 0.8 mg/dL (0.2-1); TOT PROT 4.9 g/dl (6.4-8.2)
[2022-09-11] MEDS: PANTOPRAZOLE SODIUM 40 MG VIAL IVPUSH SCH (09:39)
[2022-09-11] MEDS: ENOXAPARIN NA (PORCINE) 40 MG/0.4 ML DISP.SYRIN SQ SCH (09:39)
[2022-09-11] MEDS: CHLORHEXIDINE GLUCONATE 4% CLEANSER FOR DECOLONIZATION TP SCH (23:19)
[2022-09-12] MEDS: CEFEPIME 1 GM in DEXTROSE 5%-WATER 100 ML IVPB SCH ×3 (03:26→18:09)
[2022-09-12 06:20] LABS: HEMATOCRIT 33.8 % (35.4-49); HEMOGLOBIN 11.5 GM/dL (11.7-16.9); MCH 31.4 pg (25.7-33.7); MCHC 34.1 g/dl (32.0-35.9); MEAN PLT VOLUME 8.9 fl (7.5-11.1); PLATELET COUNT 284 10^3/uL (134-434); RBC 3.68 M/mm3 (4.00-5.60); RDW 14.1 % (11.9-15.9); WHITE BLOOD COUNT 11.4 K/mm3 (4.0-10.0)
[2022-09-12] MEDS: INSULIN SLIDING SCALE (NOVOLOG) 1 VIAL SQ SCH ×4 (06:26→21:01)
[2022-09-12] MEDS: PANTOPRAZOLE SODIUM 40 MG VIAL IVPUSH SCH (09:53)
[2022-09-12] MEDS: ENOXAPARIN NA (PORCINE) 40 MG/0.4 ML DISP.SYRIN SQ SCH (09:53)
[2022-09-12 10:42] LABS: ANISOCYTOSIS 0; MACROCYTOSIS 1+
[2022-09-12] MEDS: CHLORHEXIDINE GLUCONATE 4% CLEANSER FOR DECOLONIZATION TP SCH (21:01)
[2022-09-13] MEDS: CEFEPIME 1 GM in DEXTROSE 5%-WATER 100 ML IVPB SCH ×3 (02:09→17:04)
[2022-09-13] MEDS: INSULIN SLIDING SCALE (NOVOLOG) 1 VIAL SQ SCH ×4 (06:03→21:01)
[2022-09-13 06:44] LABS: HEMATOCRIT 34.2 % (35.4-49); HEMOGLOBIN 11.7 GM/dL (11.7-16.9); MCH 31.3 pg (25.7-33.7); MCHC 34.1 g/dl (32.0-35.9); MEAN CELL VOLUME 91.7 fl (80-96); MEAN PLT VOLUME 8.8 fl (7.5-11.1); PLATELET COUNT 291 10^3/uL (134-434); RBC 3.73 M/mm3 (4.00-5.60); RDW 14.2 % (11.9-15.9); WHITE BLOOD COUNT 10.4 K/mm3 (4.0-10.0)
[2022-09-13 07:10] LABS: CALCIUM 7.5 mg/dL (8.5-10.1)
[2022-09-13 07:11] LABS: ALBUMIN 1.5 g/dl (3.4-5.0); BLOOD UREA NITROGEN 13.6 mg/dL (7-18)
[2022-09-13 07:14] LABS: CREATININE 0.4 mg/dL (0.55-1.3)
[2022-09-13 07:15] LABS: BILIRUBIN,TOTAL 0.7 mg/dL (0.2-1); TOT PROT 5.2 g/dl (6.4-8.2)
[2022-09-13 09:11] LABS: ANISOCYTOSIS 0; HELMET CELLS 0; HOWELL-JOLLY BODIES 0; MACROCYTOSIS 0; OVALOCYTE 0; ROULEAU 0; SICKELED CELLS 0; TARGET CELLS 0; TEAR DROP CELLS 0; TOXIC GRANULATION 0
[2022-09-13] MEDS: PANTOPRAZOLE SODIUM 40 MG VIAL IVPUSH SCH (09:58)
[2022-09-13] MEDS: ENOXAPARIN NA (PORCINE) 40 MG/0.4 ML DISP.SYRIN SQ SCH (09:58)
[2022-09-13] MEDS: CHLORHEXIDINE GLUCONATE 4% CLEANSER FOR DECOLONIZATION TP SCH (21:01)
[2022-09-13] MEDS ORDERED: QUEtiapine FUMARATE 25 MG TABLET PO PRN (23:19)
[2022-09-14] MEDS: CEFEPIME 1 GM in DEXTROSE 5%-WATER 100 ML IVPB SCH ×3 (02:02→18:10)
[2022-09-14] MEDS: INSULIN SLIDING SCALE (NOVOLOG) 1 VIAL SQ SCH ×4 (06:27→22:02)
[2022-09-14] MEDS: ENOXAPARIN NA (PORCINE) 40 MG/0.4 ML DISP.SYRIN SQ SCH (10:24)
[2022-09-14] MEDS: MULTIVITAMINS (DAILY MVI) TABLET (FP) PO SCH (10:24)
[2022-09-14] MEDS: ASCORBIC ACID 500 MG TABLET (FP) PO SCH (10:24)
[2022-09-14] MEDS: PANTOPRAZOLE SODIUM 40 MG VIAL IVPUSH SCH (10:25)
[2022-09-14] MEDS: AMINO ACIDS/PROTEIN HYDROLYS 30 ML LIQUID.PKT PO SCH (10:30)
[2022-09-14] MEDS ORDERED: ACETAMINOPHEN 1000 MG/100 ML BAG IVPB PRN (10:51)
[2022-09-14] MEDS ORDERED: ALBUTEROL SO4 2.5/IPRATROPIUM 0.5 INH SOL 3 ML VIAL.NEB. NEB PRN (10:54)
[2022-09-14] MEDS ORDERED: FUROSEMIDE 40 MG/4 ML INJECTABLE VIAL IVPUSH ONE (12:44)
[2022-09-14] MEDS ORDERED: CHLORHEXIDINE GLUCONATE 4% CLEANSER FOR DECOLONIZATION TP SCH (22:00)
[2022-09-15] MEDS: INSULIN SLIDING SCALE (NOVOLOG) 1 VIAL SQ SCH ×3 (07:33→16:49)
[2022-09-15 09:20] LABS: HEMATOCRIT 34.8 % (35.4-49); HEMOGLOBIN 11.9 GM/dL (11.7-16.9); LYMPH % 30.2 % (8-40); MCHC 34.2 g/dl (32.0-35.9); MEAN CELL VOLUME 90.5 fl (80-96); MEAN PLT VOLUME 9.2 fl (7.5-11.1); MONO % 9.2 % (3.8-10.2); NEUT % 57.6 % (42.8-82.8); PLATELET COUNT 295 10^3/uL (134-434); RBC 3.84 M/mm3 (4.00-5.60); RDW 14.6 % (11.9-15.9); WHITE BLOOD COUNT 10.3 K/mm3 (4.0-10.0)
[2022-09-15 09:43] LABS: CALCIUM 7.5 mg/dL (8.5-10.1)
[2022-09-15 09:44] LABS: ALBUMIN 1.5 g/dl (3.4-5.0); BLOOD UREA NITROGEN 18.3 mg/dL (7-18)
[2022-09-15 09:47] LABS: CREATININE 0.5 mg/dL (0.55-1.3)
[2022-09-15 09:48] LABS: BILIRUBIN,TOTAL 0.9 mg/dL (0.2-1); TOT PROT 5.4 g/dl (6.4-8.2)
[2022-09-15] MEDS: ASCORBIC ACID 500 MG TABLET (FP) PO SCH (10:12)
[2022-09-15] MEDS: PANTOPRAZOLE SODIUM 40 MG VIAL IVPUSH SCH (10:12)
[2022-09-15] MEDS: AMINO ACIDS/PROTEIN HYDROLYS 30 ML LIQUID.PKT PO SCH (10:12)
[2022-09-15] MEDS: MULTIVITAMINS (DAILY MVI) TABLET (FP) PO SCH (10:12)
[2022-09-15] MEDS: ENOXAPARIN NA (PORCINE) 40 MG/0.4 ML DISP.SYRIN SQ SCH (10:12)
[2022-09-15] MEDS ORDERED: FUROSEMIDE 40 MG/4 ML INJECTABLE VIAL IVPUSH ONE (17:08)
[2022-09-15 17:41] LABS: ARTERIAL BLD GAS O2 SATURATION 96.9 % (95-98); ARTERIAL BLOOD GAS BASE EXCESS 3.1 mmol/L (-2-2); ARTERIAL BLOOD GAS PO2 77.2 mmHg (80-100); ARTERIAL BLOOD GAS pH 7.552 (7.350-7.450)
[2022-09-15 17:42] LABS: ALLENS TEST POSITIVE
[2022-09-15 21:05] LABS: ARTERIAL BLD GAS O2 SATURATION 98.5 % (95-98); ARTERIAL BLOOD GAS BASE EXCESS 4.4 mmol/L (-2-2); ARTERIAL BLOOD GAS PO2 106.9 mmHg (80-100); ARTERIAL BLOOD GAS pH 7.571 (7.350-7.450)
[2022-09-15 21:06] LABS: ALLENS TEST POSITIVE
[2022-09-16] MEDS: INSULIN SLIDING SCALE (NOVOLOG) 1 VIAL SQ SCH ×5 (00:09→21:25)
[2022-09-16 09:51] LABS: BLOOD UREA NITROGEN 37.3 mg/dL (7-18)
[2022-09-16 09:54] LABS: CREATININE 1.2 mg/dL (0.55-1.3)
[2022-09-16] MEDS: PANTOPRAZOLE SODIUM 40 MG VIAL IVPUSH SCH (10:00)
[2022-09-16] MEDS ORDERED: FUROSEMIDE 40 MG/4 ML INJECTABLE VIAL IVPUSH SCH (10:00)
[2022-09-16] MEDS ORDERED: NOREPINEPHRINE BITARTRATE 4 MG/4 ML ML IV ONE (10:13)
[2022-09-16] MEDS: ASCORBIC ACID 500 MG TABLET (FP) PO SCH (10:13)
[2022-09-16] MEDS: MULTIVITAMINS (DAILY MVI) TABLET (FP) PO SCH (10:13)
[2022-09-16] MEDS ORDERED: ROCURONIUM BROMIDE 50 MG/5 ML VIAL ONE (10:25)
[2022-09-16] MEDS ORDERED: RAPID SEQUENCE INTUBATION KIT NR ONE (10:26)
[2022-09-16] MEDS: AMINO ACIDS/PROTEIN HYDROLYS 30 ML LIQUID.PKT PO SCH (11:00)
[2022-09-16 11:42] LABS: ARTERIAL BLD GAS O2 SATURATION 96.7 % (95-98); ARTERIAL BLOOD GAS BASE EXCESS -4.5 mmol/L (-2-2); ARTERIAL BLOOD GAS PO2 99.1 mmHg (80-100); ARTERIAL BLOOD GAS pH 7.277 (7.350-7.450)
[2022-09-16 11:44] LABS: ALLENS TEST POSITIVE
[2022-09-16 11:45] LABS: VENT MODE A/C; VENT RATE 14
[2022-09-16 11:55] LABS: HEMATOCRIT 37.6 % (35.4-49); HEMOGLOBIN 12.8 GM/dL (11.7-16.9); MCH 31.4 pg (25.7-33.7); MEAN CELL VOLUME 92.3 fl (80-96); MEAN PLT VOLUME 9.6 fl (7.5-11.1); PLATELET COUNT 342 10^3/uL (134-434); RBC 4.07 M/mm3 (4.00-5.60); RDW 15.2 % (11.9-15.9); WHITE BLOOD COUNT 16.7 K/mm3 (4.0-10.0)
[2022-09-16 12:40] LABS: ANISOCYTOSIS 0; MACROCYTOSIS 0
[2022-09-16] MEDS ORDERED: SODIUM ZIRCONIUM CYCLOSILICATE (LOKELMA) 10 GM PACKET PO SCH (14:00)
[2022-09-16] MEDS ORDERED: PIPERACILLIN/TAZOB 4.5 GM 4.5 GM in DEXTROSE 5%-WATER 100 ML IVPB SCH (14:00)
[2022-09-16] MEDS: DEXTROSE 5%-NORMAL SALINE 1,000 ML IV SCH (15:00)
[2022-09-16] MEDS: DEXMEDETOMIDINE PREMIX 400 MCG/100 ML BAG IVPB SCH (15:35)
[2022-09-16] MEDS: PIPERACILLIN/TAZOB 4.5 GM 4.5 GM in DEXTROSE 5%-WATER 100 ML IVPB SCH (17:41)
[2022-09-16] MEDS: ENOXAPARIN NA (PORCINE) 40 MG/0.4 ML DISP.SYRIN SQ SCH (19:16)
[2022-09-16] MEDS: NOREPINEPHRINE BITARTRATE 4,000 MCG in DEXTROSE 5%-WATER - 496 ML IV SCH (22:33)
[2022-09-17 00:40] LABS: HEMATOCRIT 31.3 % (35.4-49); HEMOGLOBIN 10.6 GM/dL (11.7-16.9); MCH 31.3 pg (25.7-33.7); MCHC 33.8 g/dl (32.0-35.9); MEAN CELL VOLUME 92.7 fl (80-96); MEAN PLT VOLUME 8.9 fl (7.5-11.1); PLATELET COUNT 288 10^3/uL (134-434); RBC 3.37 M/mm3 (4.00-5.60); RDW 15.4 % (11.9-15.9); WHITE BLOOD COUNT 18.3 K/mm3 (4.0-10.0)
[2022-09-17] MEDS: PANTOPRAZOLE SODIUM 80 MG in SODIUM CHLORIDE 100 ML IVPB SCH ×2 (00:57→10:40)
[2022-09-17] MEDS: PIPERACILLIN/TAZOB 4.5 GM 4.5 GM in DEXTROSE 5%-WATER 100 ML IVPB SCH ×3 (01:04→18:10)
[2022-09-17] MEDS: INSULIN SLIDING SCALE (NOVOLOG) 1 VIAL SQ SCH ×5 (06:49→21:03)
[2022-09-17 08:19] LABS: BASO % 0.6 % (0-2.0); EOS % 3.3 % (0-4.5); HEMATOCRIT 30.8 % (35.4-49); HEMOGLOBIN 10.4 GM/dL (11.7-16.9); LYMPH % 20.5 % (8-40); MCH 31.3 pg (25.7-33.7); MCHC 33.7 g/dl (32.0-35.9); MEAN CELL VOLUME 92.7 fl (80-96); MEAN PLT VOLUME 9.1 fl (7.5-11.1); MONO % 6.6 % (3.8-10.2); PLATELET COUNT 290 10^3/uL (134-434); RBC 3.32 M/mm3 (4.00-5.60); RDW 15.1 % (11.9-15.9); WHITE BLOOD COUNT 16.4 K/mm3 (4.0-10.0)
[2022-09-17 08:28] LABS: CALCIUM 7.4 mg/dL (8.5-10.1)
[2022-09-17 08:29] LABS: ALBUMIN 1.4 g/dl (3.4-5.0); MAGNESIUM 2.1 mg/dL (1.8-2.4)
[2022-09-17 08:31] LABS: PHOSPHOROUS 3.6 mg/dL (2.5-4.9)
[2022-09-17 08:33] LABS: BILIRUBIN,TOTAL 0.8 mg/dL (0.2-1); TOT PROT 4.8 g/dl (6.4-8.2)
[2022-09-17] MEDS ORDERED: FENTANYL NS IVPB 500 MCG/100 ML BAG IVPB SCH ×2 (09:45→09:56)
[2022-09-17] MEDS: MULTIVITAMINS (DAILY MVI) TABLET (FP) PO SCH (09:55)
[2022-09-17] MEDS: ASCORBIC ACID 500 MG TABLET (FP) PO SCH (09:55)
[2022-09-17] MEDS: AMINO ACIDS/PROTEIN HYDROLYS 30 ML LIQUID.PKT PO SCH (09:55)
[2022-09-17] MEDS: FENTANYL NS IVPB 500 MCG/100 ML BAG IVPB SCH (10:40)
[2022-09-17] MEDS ORDERED: NOREPINEPHRINE BITARTRATE 4 MG/4 ML ML IV ONE (13:08)
[2022-09-17] MEDS ORDERED: PANTOPRAZOLE SODIUM 160 MG in SODIUM CHLORIDE 290 ML IVPB SCH (17:00)
[2022-09-17] MEDS: DEXMEDETOMIDINE PREMIX 400 MCG/100 ML BAG IVPB SCH (18:07)
[2022-09-17] MEDS: AMINO ACIDS 4.25%/D5W 1,000 ML IV SCH (18:57)
[2022-09-17] MEDS: DEXTROSE 5%-NORMAL SALINE 1,000 ML IV SCH (18:58)
[2022-09-17] MEDS: PANTOPRAZOLE SODIUM 40 MG VIAL IVPUSH SCH (21:04)
[2022-09-17] MEDS: NOREPINEPHRINE BITARTRATE 4,000 MCG in DEXTROSE 5%-WATER - 496 ML IV SCH (22:36)
[2022-09-18] MEDS: PIPERACILLIN/TAZOB 4.5 GM 4.5 GM in DEXTROSE 5%-WATER 100 ML IVPB SCH ×3 (01:02→17:03)
[2022-09-18] MEDS: INSULIN SLIDING SCALE (NOVOLOG) 1 VIAL SQ SCH ×4 (06:15→21:02)
[2022-09-18 07:33] LABS: BASO % 0.9 % (0-2.0); EOS % 4.4 % (0-4.5); HEMATOCRIT 30.8 % (35.4-49); HEMOGLOBIN 10.1 GM/dL (11.7-16.9); LYMPH % 21.1 % (8-40); MCH 30.1 pg (25.7-33.7); MCHC 32.9 g/dl (32.0-35.9); MEAN CELL VOLUME 91.3 fl (80-96); MEAN PLT VOLUME 9.3 fl (7.5-11.1); MONO % 5.8 % (3.8-10.2); NEUT % 67.8 % (42.8-82.8); PLATELET COUNT 237 10^3/uL (134-434); RBC 3.37 M/mm3 (4.00-5.60); RDW 15.5 % (11.9-15.9); WHITE BLOOD COUNT 13.2 K/mm3 (4.0-10.0)
[2022-09-18 08:00] LABS: ALBUMIN 1.4 g/dl (3.4-5.0); BLOOD UREA NITROGEN 30.3 mg/dL (7-18); CALCIUM 7.3 mg/dL (8.5-10.1); MAGNESIUM 1.7 mg/dL (1.8-2.4)
[2022-09-18 08:03] LABS: CREATININE 0.5 mg/dL (0.55-1.3); PHOSPHOROUS 1.8 mg/dL (2.5-4.9)
[2022-09-18 08:05] LABS: BILIRUBIN,TOTAL 0.8 mg/dL (0.2-1); TOT PROT 4.9 g/dl (6.4-8.2)
[2022-09-18] MEDS ORDERED: MAGNESIUM SULF 50% (8.12 MEQ/2 ML-1 GM VIAL) IVPB ONE (10:00)
[2022-09-18] MEDS: PANTOPRAZOLE SODIUM 40 MG VIAL IVPUSH SCH ×2 (10:46→21:01)
[2022-09-18] MEDS: AMINO ACIDS/PROTEIN HYDROLYS 30 ML LIQUID.PKT PO SCH (10:46)
[2022-09-18] MEDS: ASCORBIC ACID 500 MG TABLET (FP) PO SCH (10:47)
[2022-09-18] MEDS: MULTIVITAMINS (DAILY MVI) TABLET (FP) PO SCH (10:47)
[2022-09-18] MEDS: FENTANYL NS IVPB 500 MCG/100 ML BAG IVPB SCH (12:06)
[2022-09-18] MEDS ORDERED: VANCOMYCIN/WATER 1250 MG 1,250 MG/250 ML BAG IVPB ONE (13:15)
[2022-09-18] MEDS: DEXMEDETOMIDINE PREMIX 400 MCG/100 ML BAG IVPB SCH (16:38)
[2022-09-18] MEDS: AMINO ACIDS 4.25%/D5W 1,000 ML IV SCH (16:40)
[2022-09-18 19:42] LABS: INR 1.33 (0.83-1.09); PROTHROMBIN TIME (PATIENT) 15.4 SEC (9.7-13.0)
[2022-09-18] MEDS: NOREPINEPHRINE BITARTRATE/D5W 8 MG/250 ML BAG IVPB SCH (20:25)
[2022-09-18] MEDS: NOREPINEPHRINE BITARTRATE 4,000 MCG in DEXTROSE 5%-WATER - 496 ML IV SCH (20:26)
[2022-09-18 22:53] LABS: ARTERIAL BLD GAS O2 SATURATION 96.5 % (95-98); ARTERIAL BLOOD GAS BASE EXCESS 3.4 mmol/L (-2-2); ARTERIAL BLOOD GAS PO2 77.7 mmHg (80-100); ARTERIAL BLOOD GAS pH 7.498 (7.350-7.450)
[2022-09-18 22:54] LABS: ALLENS TEST POSITIVE
[2022-09-18 22:55] LABS: VENT MODE A/C; VENT RATE 14
[2022-09-19] MEDS: PIPERACILLIN/TAZOB 4.5 GM 4.5 GM in DEXTROSE 5%-WATER 100 ML IVPB SCH ×3 (01:42→17:32)
[2022-09-19] MEDS: INSULIN SLIDING SCALE (NOVOLOG) 1 VIAL SQ SCH ×4 (06:29→21:14)
[2022-09-19 07:45] LABS: CALCIUM 7.4 mg/dL (8.5-10.1)
[2022-09-19 07:46] LABS: ALBUMIN 1.4 g/dl (3.4-5.0); BLOOD UREA NITROGEN 20.2 mg/dL (7-18); MAGNESIUM 1.7 mg/dL (1.8-2.4)
[2022-09-19 07:47] LABS: CREATININE 0.4 mg/dL (0.55-1.3)
[2022-09-19 07:49] LABS: BILIRUBIN,TOTAL 1.1 mg/dL (0.2-1); PHOSPHOROUS 1.7 mg/dL (2.5-4.9); TOT PROT 4.7 g/dl (6.4-8.2)
[2022-09-19 08:24] LABS: BASO % 0.7 % (0-2.0); EOS % 4.2 % (0-4.5); HEMATOCRIT 30.7 % (35.4-49); HEMOGLOBIN 10.3 GM/dL (11.7-16.9); LYMPH % 26.4 % (8-40); MCH 30.5 pg (25.7-33.7); MCHC 33.5 g/dl (32.0-35.9); MEAN CELL VOLUME 90.8 fl (80-96); MEAN PLT VOLUME 8.7 fl (7.5-11.1); MONO % 6.6 % (3.8-10.2); NEUT % 62.1 % (42.8-82.8); PLATELET COUNT 229 10^3/uL (134-434); RBC 3.39 M/mm3 (4.00-5.60); RDW 15.2 % (11.9-15.9); WHITE BLOOD COUNT 12.4 K/mm3 (4.0-10.0)
[2022-09-19] MEDS ORDERED: NAPH,MB-DB/K PH,MBDB POWDER PACKET PO ONE (10:00)
[2022-09-19] MEDS ORDERED: MAGNESIUM SULF 50% (8.12 MEQ/2 ML-1 GM VIAL) IVPB ONE (10:00)
[2022-09-19] MEDS: AMINO ACIDS/PROTEIN HYDROLYS 30 ML LIQUID.PKT PO SCH (10:17)
[2022-09-19] MEDS: MULTIVITAMINS (DAILY MVI) TABLET (FP) PO SCH (10:18)
[2022-09-19] MEDS: ASCORBIC ACID 500 MG TABLET (FP) PO SCH (10:18)
[2022-09-19] MEDS: ENOXAPARIN NA (PORCINE) 40 MG/0.4 ML DISP.SYRIN SQ SCH (10:26)
[2022-09-19] MEDS: PANTOPRAZOLE SODIUM 40 MG VIAL IVPUSH SCH ×2 (10:27→21:19)
[2022-09-19] MEDS: FENTANYL NS IVPB 500 MCG/100 ML BAG IVPB SCH ×2 (13:00→18:31)
[2022-09-19] MEDS: VANCOMYCIN/WATER 1,250 MG/250 ML BAG (RESTRICTED TO ID ONLY) IVPB SCH (15:18)
[2022-09-19] MEDS: DEXMEDETOMIDINE PREMIX 400 MCG/100 ML BAG IVPB SCH ×2 (15:18→18:35)
[2022-09-19] MEDS: NOREPINEPHRINE BITARTRATE/D5W 8 MG/250 ML BAG IVPB SCH ×2 (18:34→20:52)
[2022-09-20] MEDS: PIPERACILLIN/TAZOB 4.5 GM 4.5 GM in DEXTROSE 5%-WATER 100 ML IVPB SCH ×3 (01:01→17:04)
[2022-09-20] MEDS: VANCOMYCIN/WATER 1,250 MG/250 ML BAG (RESTRICTED TO ID ONLY) IVPB SCH (01:02)
[2022-09-20] MEDS ORDERED: NOREPINEPHRINE BITARTRATE 4 MG/4 ML ML IV ONE ×2 (02:07→02:10)
[2022-09-20] MEDS: INSULIN SLIDING SCALE (NOVOLOG) 1 VIAL SQ SCH ×4 (06:05→21:57)
[2022-09-20 06:38] LABS: BASO % 1.1 % (0-2.0); EOS % 3.2 % (0-4.5); HEMATOCRIT 30.9 % (35.4-49); HEMOGLOBIN 10.3 GM/dL (11.7-16.9); LYMPH % 34.6 % (8-40); MCH 30.9 pg (25.7-33.7); MCHC 33.4 g/dl (32.0-35.9); MEAN CELL VOLUME 92.5 fl (80-96); MEAN PLT VOLUME 8.2 fl (7.5-11.1); MONO % 7.9 % (3.8-10.2); NEUT % 53.2 % (42.8-82.8); PLATELET COUNT 266 10^3/uL (134-434); RBC 3.34 M/mm3 (4.00-5.60); WHITE BLOOD COUNT 14.5 K/mm3 (4.0-10.0)
[2022-09-20 06:59] LABS: CREATININE 0.4 mg/dL (0.55-1.3)
[2022-09-20 07:02] LABS: CALCIUM 7.2 mg/dL (8.5-10.1)
[2022-09-20 07:03] LABS: ALBUMIN 1.2 g/dl (3.4-5.0); MAGNESIUM 1.5 mg/dL (1.8-2.4)
[2022-09-20 07:06] LABS: PHOSPHOROUS 2.1 mg/dL (2.5-4.9)
[2022-09-20 07:07] LABS: BILIRUBIN,TOTAL 0.9 mg/dL (0.2-1); TOT PROT 4.6 g/dl (6.4-8.2)
[2022-09-20] MEDS ORDERED: NAPH,MB-DB/K PH,MBDB POWDER PACKET PO ONE ×2 (08:03→10:00)
[2022-09-20] MEDS ORDERED: MAGNESIUM SULF 50% (8.12 MEQ/2 ML-1 GM VIAL) IVPB ONE (09:00)
[2022-09-20] MEDS: PANTOPRAZOLE SODIUM 40 MG VIAL IVPUSH SCH ×2 (09:18→21:08)
[2022-09-20] MEDS: ENOXAPARIN NA (PORCINE) 40 MG/0.4 ML DISP.SYRIN SQ SCH (09:18)
[2022-09-20] MEDS: AMINO ACIDS/PROTEIN HYDROLYS 30 ML LIQUID.PKT PO SCH (09:18)
[2022-09-20] MEDS: MULTIVITAMINS (DAILY MVI) TABLET (FP) PO SCH (09:19)
[2022-09-20] MEDS: ASCORBIC ACID 500 MG TABLET (FP) PO SCH (09:19)
[2022-09-20] MEDS: FENTANYL NS IVPB 500 MCG/100 ML BAG IVPB SCH ×2 (10:25)
[2022-09-20] MEDS ORDERED: ACETAMINOPHEN 325 MG TABLET (FP) PO PRN (12:01)
[2022-09-20] MEDS ORDERED: ACETAMINOPHEN 1000 MG/100 ML BAG IVPB ONE (12:15)
[2022-09-20] MEDS: DEXMEDETOMIDINE PREMIX 400 MCG/100 ML BAG IVPB SCH ×2 (12:23→20:45)
[2022-09-20] MEDS ORDERED: VANCOMYCIN/WATER 1,250 MG/250 ML BAG (RESTRICTED TO ID ONLY) IVPB SCH (14:00)
[2022-09-20] MEDS: NOREPINEPHRINE BITARTRATE/D5W 8 MG/250 ML BAG IVPB SCH (20:30)
[2022-09-21] MEDS: PIPERACILLIN/TAZOB 4.5 GM 4.5 GM in DEXTROSE 5%-WATER 100 ML IVPB SCH ×3 (02:11→17:14)
[2022-09-21] MEDS: INSULIN SLIDING SCALE (NOVOLOG) 1 VIAL SQ SCH ×4 (06:04→21:39)
[2022-09-21 07:15] LABS: BASO % 0.7 % (0-2.0); EOS % 1.6 % (0-4.5); HEMATOCRIT 31.8 % (35.4-49); HEMOGLOBIN 10.5 GM/dL (11.7-16.9); LYMPH % 30.6 % (8-40); MCH 30.1 pg (25.7-33.7); MCHC 32.9 g/dl (32.0-35.9); MEAN CELL VOLUME 91.6 fl (80-96); MEAN PLT VOLUME 8.1 fl (7.5-11.1); MONO % 8.9 % (3.8-10.2); NEUT % 58.2 % (42.8-82.8); PLATELET COUNT 262 10^3/uL (134-434); RBC 3.48 M/mm3 (4.00-5.60); RDW 15.6 % (11.9-15.9); WHITE BLOOD COUNT 17.5 K/mm3 (4.0-10.0)
[2022-09-21 07:32] LABS: CREATININE 0.5 mg/dL (0.55-1.3)
[2022-09-21 07:33] LABS: ALBUMIN 1.2 g/dl (3.4-5.0); BILIRUBIN,TOTAL 0.7 mg/dL (0.2-1)
[2022-09-21 07:34] LABS: TOT PROT 4.8 g/dl (6.4-8.2)
[2022-09-21 07:35] LABS: BILIRUBIN,DIRECT 0.4 mg/dL (0.0-0.2); CALCIUM 7.4 mg/dL (8.5-10.1)
[2022-09-21 07:36] LABS: BLOOD UREA NITROGEN 19.3 mg/dL (7-18); MAGNESIUM 1.8 mg/dL (1.8-2.4); PHOSPHOROUS 2.1 mg/dL (2.5-4.9)
[2022-09-21] MEDS: NOREPINEPHRINE BITARTRATE/D5W 8 MG/250 ML BAG IVPB SCH ×2 (08:45→21:30)
[2022-09-21] MEDS: AMINO ACIDS/PROTEIN HYDROLYS 30 ML LIQUID.PKT PO SCH (09:00)
[2022-09-21] MEDS: PANTOPRAZOLE SODIUM 40 MG VIAL IVPUSH SCH ×2 (09:12→11:20)
[2022-09-21] MEDS: ENOXAPARIN NA (PORCINE) 40 MG/0.4 ML DISP.SYRIN SQ SCH (09:12)
[2022-09-21] MEDS: ASCORBIC ACID 500 MG TABLET (FP) PO SCH (09:12)
[2022-09-21] MEDS: MULTIVITAMINS (DAILY MVI) TABLET (FP) PO SCH (09:12)
[2022-09-21] MEDS: FENTANYL NS IVPB 500 MCG/100 ML BAG IVPB SCH ×4 (09:13→23:00)
[2022-09-21] MEDS: HYDROCORTISONE SOD SUCCINATE 100 MG/2 ML VIAL IVPUSH SCH ×3 (11:00→21:36)
[2022-09-21] MEDS: VASOPRESSIN 40 UNITS/100 ML BAG IV SCH (11:19)
[2022-09-21] MEDS: DEXMEDETOMIDINE PREMIX 400 MCG/100 ML BAG IVPB SCH ×3 (12:00→17:50)
[2022-09-21] MEDS: METOCLOPRAMIDE HCL INJECTION 10 MG/2 ML VIAL IVPUSH SCH ×2 (17:00→23:09)
[2022-09-22] MEDS: PIPERACILLIN/TAZOB 4.5 GM 4.5 GM in DEXTROSE 5%-WATER 100 ML IVPB SCH ×3 (01:55→17:41)
[2022-09-22] MEDS: HYDROCORTISONE SOD SUCCINATE 100 MG/2 ML VIAL IVPUSH SCH ×4 (03:19→21:20)
[2022-09-22] MEDS: INSULIN SLIDING SCALE (NOVOLOG) 1 VIAL SQ SCH ×4 (06:35→21:20)
[2022-09-22] MEDS: AMINO ACIDS/PROTEIN HYDROLYS 30 ML LIQUID.PKT PO SCH (08:48)
[2022-09-22] MEDS: METOCLOPRAMIDE HCL INJECTION 10 MG/2 ML VIAL IVPUSH SCH (08:48)
[2022-09-22] MEDS: ASCORBIC ACID 500 MG TABLET (FP) PO SCH (09:26)
[2022-09-22] MEDS: ENOXAPARIN NA (PORCINE) 40 MG/0.4 ML DISP.SYRIN SQ SCH (09:26)
[2022-09-22] MEDS: MULTIVITAMINS (DAILY MVI) TABLET (FP) PO SCH (09:27)
[2022-09-22] MEDS: PANTOPRAZOLE SODIUM 40 MG VIAL IVPUSH SCH (09:31)
[2022-09-22] MEDS: VASOPRESSIN 40 UNITS/100 ML BAG IV SCH (09:32)
[2022-09-22] MEDS: FENTANYL NS IVPB 500 MCG/100 ML BAG IVPB SCH ×2 (09:50→20:19)
[2022-09-22] MEDS: SODIUM CHLORIDE 1,000 ML IV SCH (09:50)
[2022-09-22] MEDS: DEXMEDETOMIDINE PREMIX 400 MCG/100 ML BAG IVPB SCH (15:42)
[2022-09-22] MEDS: MEROPENEM 1 GM in DEXTROSE 5%-WATER 100 ML IVPB SCH (20:19)
[2022-09-22] MEDS: NOREPINEPHRINE BITARTRATE/D5W 8 MG/250 ML BAG IVPB SCH (21:19)
[2022-09-22] MEDS ORDERED: CIPROFLOXACIN 400 MG/D5W 400 MG/200 ML IVPB IVPB SCH (22:00)
[2022-09-23] MEDS: MEROPENEM 1 GM in DEXTROSE 5%-WATER 100 ML IVPB SCH ×3 (01:59→17:06)
[2022-09-23] MEDS: FENTANYL NS IVPB 500 MCG/100 ML BAG IVPB SCH ×5 (03:04→18:51)
[2022-09-23] MEDS: HYDROCORTISONE SOD SUCCINATE 100 MG/2 ML VIAL IVPUSH SCH ×4 (03:54→21:35)
[2022-09-23] MEDS: INSULIN SLIDING SCALE (NOVOLOG) 1 VIAL SQ SCH ×4 (06:24→21:35)
[2022-09-23 06:55] LABS: HEMATOCRIT 29.6 % (35.4-49); HEMOGLOBIN 9.8 GM/dL (11.7-16.9); LYMPH % 19.5 % (8-40); MCH 30.1 pg (25.7-33.7); MCHC 33.1 g/dl (32.0-35.9); MEAN PLT VOLUME 8.1 fl (7.5-11.1); MONO % 5.7 % (3.8-10.2); NEUT % 74.8 % (42.8-82.8); PLATELET COUNT 279 10^3/uL (134-434); RBC 3.25 M/mm3 (4.00-5.60); RDW 15.2 % (11.9-15.9)
[2022-09-23 07:19] LABS: CALCIUM 7.6 mg/dL (8.5-10.1)
[2022-09-23 07:20] LABS: ALBUMIN 1.4 g/dl (3.4-5.0); BLOOD UREA NITROGEN 25.5 mg/dL (7-18)
[2022-09-23 07:23] LABS: CREATININE 0.3 mg/dL (0.55-1.3)
[2022-09-23 07:25] LABS: BILIRUBIN,TOTAL 0.8 mg/dL (0.2-1)
[2022-09-23] MEDS: AMINO ACIDS/PROTEIN HYDROLYS 30 ML LIQUID.PKT PO SCH (08:34)
[2022-09-23] MEDS ORDERED: ROCURONIUM BROMIDE 50 MG/5 ML VIAL IV ONE (08:51)
[2022-09-23] MEDS ORDERED: MIDAZOLAM HCL 5 MG/1 ML Single Dose Vial IVPUSH ONE (08:53)
[2022-09-23] MEDS ORDERED: PROPOFOL 200 MG/20 ML VIAL IVPUSH ONE (08:54)
[2022-09-23] MEDS: ENOXAPARIN NA (PORCINE) 40 MG/0.4 ML DISP.SYRIN SQ SCH (09:43)
[2022-09-23] MEDS: PANTOPRAZOLE SODIUM 40 MG VIAL IVPUSH SCH (09:44)
[2022-09-23] MEDS: SODIUM CHLORIDE 1,000 ML IV SCH (09:44)
[2022-09-23] MEDS: VASOPRESSIN 40 UNITS/100 ML BAG IV SCH (09:44)
[2022-09-23] MEDS: ASCORBIC ACID 500 MG TABLET (FP) PO SCH (09:45)
[2022-09-23] MEDS: MULTIVITAMINS (DAILY MVI) TABLET (FP) PO SCH (09:45)
[2022-09-23] MEDS: DEXMEDETOMIDINE PREMIX 400 MCG/100 ML BAG IVPB SCH ×2 (11:00→22:43)
[2022-09-23] MEDS: NOREPINEPHRINE BITARTRATE/D5W 8 MG/250 ML BAG IVPB SCH ×2 (12:00→21:34)
[2022-09-23] MEDS: KCL 10 MEQ IVPB 10 MEQ/100 ML INFUS.BAG IVPB SCH ×2 (13:30→14:30)
[2022-09-23] MEDS ORDERED: DEXMEDETOMIDINE PREMIX 400 MCG/100 ML BAG IVPB ONE (22:32)
[2022-09-24] MEDS: FENTANYL NS IVPB 500 MCG/100 ML BAG IVPB SCH (00:40)
[2022-09-24] MEDS: MEROPENEM 1 GM in DEXTROSE 5%-WATER 100 ML IVPB SCH ×3 (02:44→17:03)
[2022-09-24] MEDS: HYDROCORTISONE SOD SUCCINATE 100 MG/2 ML VIAL IVPUSH SCH ×3 (03:35→21:23)
[2022-09-24] MEDS: INSULIN SLIDING SCALE (NOVOLOG) 1 VIAL SQ SCH ×4 (06:25→21:23)
[2022-09-24 07:23] LABS: HEMATOCRIT 30.7 % (35.4-49); HEMOGLOBIN 10.3 GM/dL (11.7-16.9); MCHC 33.7 g/dl (32.0-35.9); MEAN CELL VOLUME 92.1 fl (80-96); MEAN PLT VOLUME 8.5 fl (7.5-11.1); PLATELET COUNT 333 10^3/uL (134-434); RBC 3.34 M/mm3 (4.00-5.60); RDW 15.7 % (11.9-15.9); WHITE BLOOD COUNT 14.8 K/mm3 (4.0-10.0)
[2022-09-24 08:33] LABS: ALBUMIN 1.5 g/dl (3.4-5.0); BLOOD UREA NITROGEN 19.2 mg/dL (7-18); MAGNESIUM 1.9 mg/dL (1.8-2.4)
[2022-09-24 08:37] LABS: CREATININE 0.4 mg/dL (0.55-1.3); PHOSPHOROUS 1.8 mg/dL (2.5-4.9)
[2022-09-24 08:40] LABS: BILIRUBIN,TOTAL 0.9 mg/dL (0.2-1); TOT PROT 5.2 g/dl (6.4-8.2)
[2022-09-24] MEDS: AMINO ACIDS/PROTEIN HYDROLYS 30 ML LIQUID.PKT PO SCH (09:00)
[2022-09-24] MEDS: ASCORBIC ACID 500 MG TABLET (FP) PO SCH (09:06)
[2022-09-24] MEDS: MULTIVITAMINS (DAILY MVI) TABLET (FP) PO SCH (09:06)
[2022-09-24] MEDS: ENOXAPARIN NA (PORCINE) 40 MG/0.4 ML DISP.SYRIN SQ SCH (09:06)
[2022-09-24] MEDS: VASOPRESSIN 40 UNITS/100 ML BAG IV SCH (09:07)
[2022-09-24] MEDS: DEXMEDETOMIDINE PREMIX 400 MCG/100 ML BAG IVPB SCH ×2 (09:07→23:39)
[2022-09-24] MEDS: SODIUM CHLORIDE 1,000 ML IV SCH (09:08)
[2022-09-24] MEDS: PANTOPRAZOLE SODIUM 40 MG VIAL IVPUSH SCH (09:14)
[2022-09-24] MEDS ORDERED: NAPH,MB-DB/K PH,MBDB POWDER PACKET NGT ONE (09:30)
[2022-09-24] MEDS: MIDODRINE HCL 5 MG TABLET PO SCH ×3 (10:09→17:03)
[2022-09-24] MEDS ORDERED: FENTANYL CITRATE/PF 50 MCG/ML VIAL IVPUSH PRN ×2 (14:00→16:48)
[2022-09-24] MEDS: NOREPINEPHRINE BITARTRATE/D5W 8 MG/250 ML BAG IVPB SCH (21:22)
[2022-09-24] MEDS ORDERED: QUEtiapine FUMARATE 25 MG TABLET PO SCH (22:00)
[2022-09-25] MEDS: MEROPENEM 1 GM in DEXTROSE 5%-WATER 100 ML IVPB SCH ×3 (02:39→17:42)
[2022-09-25] MEDS: ACETAMINOPHEN 325 MG TABLET (FP) PO PRN (06:16)
[2022-09-25] MEDS: QUEtiapine FUMARATE 25 MG TABLET PO SCH ×3 (06:17→21:12)
[2022-09-25] MEDS: INSULIN SLIDING SCALE (NOVOLOG) 1 VIAL SQ SCH ×4 (06:17→21:12)
[2022-09-25 08:17] LABS: HEMATOCRIT 30.8 % (35.4-49); HEMOGLOBIN 10.2 GM/dL (11.7-16.9); MCH 30.3 pg (25.7-33.7); MEAN PLT VOLUME 8.5 fl (7.5-11.1); PLATELET COUNT 303 10^3/uL (134-434); RBC 3.35 M/mm3 (4.00-5.60); RDW 15.9 % (11.9-15.9); WHITE BLOOD COUNT 16.3 K/mm3 (4.0-10.0)
[2022-09-25 08:25] LABS: ALBUMIN 1.6 g/dl (3.4-5.0); BLOOD UREA NITROGEN 19.2 mg/dL (7-18); CALCIUM 7.9 mg/dL (8.5-10.1)
[2022-09-25 08:26] LABS: MAGNESIUM 1.8 mg/dL (1.8-2.4); PHOSPHOROUS 1.8 mg/dL (2.5-4.9)
[2022-09-25 08:27] LABS: TOT PROT 5.3 g/dl (6.4-8.2)
[2022-09-25 08:29] LABS: CREATININE 0.4 mg/dL (0.55-1.3)
[2022-09-25 08:31] LABS: BILIRUBIN,TOTAL 1.1 mg/dL (0.2-1)
[2022-09-25] MEDS ORDERED: NAPH,MB-DB/K PH,MBDB POWDER PACKET PO ONE ×2 (08:37→14:00)
[2022-09-25] MEDS: HYDROCORTISONE SOD SUCCINATE 100 MG/2 ML VIAL IVPUSH SCH ×2 (10:17→21:12)
[2022-09-25] MEDS: AMINO ACIDS/PROTEIN HYDROLYS 30 ML LIQUID.PKT PO SCH (10:17)
[2022-09-25] MEDS: ENOXAPARIN NA (PORCINE) 40 MG/0.4 ML DISP.SYRIN SQ SCH (10:17)
[2022-09-25] MEDS: ASCORBIC ACID 500 MG TABLET (FP) PO SCH (10:18)
[2022-09-25] MEDS: MIDODRINE HCL 5 MG TABLET PO SCH ×3 (10:18→17:43)
[2022-09-25] MEDS: PANTOPRAZOLE SODIUM 40 MG VIAL IVPUSH SCH (10:18)
[2022-09-25] MEDS: MULTIVITAMINS (DAILY MVI) TABLET (FP) PO SCH (10:18)
[2022-09-25] MEDS: VASOPRESSIN 40 UNITS/100 ML BAG IV SCH (10:18)
[2022-09-25] MEDS: SODIUM CHLORIDE 1,000 ML IV SCH (10:47)
[2022-09-25] MEDS ORDERED: HYDROmorphone HCl 2 MG/ML VIAL IVPUSH ONE (10:49)
[2022-09-25] MEDS ORDERED: FENTANYL CITRATE/PF 50 MCG/ML VIAL IVPUSH PRN (11:59)
[2022-09-26] MEDS: MEROPENEM 1 GM in DEXTROSE 5%-WATER 100 ML IVPB SCH ×3 (03:00→18:33)
[2022-09-26] MEDS: INSULIN SLIDING SCALE (NOVOLOG) 1 VIAL SQ SCH ×4 (06:30→21:18)
[2022-09-26 07:50] LABS: ALBUMIN 1.5 g/dl (3.4-5.0); BLOOD UREA NITROGEN 18.6 mg/dL (7-18); CALCIUM 7.8 mg/dL (8.5-10.1); MAGNESIUM 1.9 mg/dL (1.8-2.4)
[2022-09-26 07:51] LABS: HEMATOCRIT 29.9 % (35.4-49); HEMOGLOBIN 9.9 GM/dL (11.7-16.9); MEAN CELL VOLUME 93.8 fl (80-96); MEAN PLT VOLUME 8.6 fl (7.5-11.1); PLATELET COUNT 294 10^3/uL (134-434); RBC 3.18 M/mm3 (4.00-5.60); WHITE BLOOD COUNT 14.4 K/mm3 (4.0-10.0)
[2022-09-26 07:53] LABS: CREATININE 0.3 mg/dL (0.55-1.3)
[2022-09-26 07:54] LABS: PHOSPHOROUS 1.8 mg/dL (2.5-4.9)
[2022-09-26 07:55] LABS: BILIRUBIN,TOTAL 0.9 mg/dL (0.2-1); TOT PROT 4.9 g/dl (6.4-8.2)
[2022-09-26] MEDS: AMINO ACIDS/PROTEIN HYDROLYS 30 ML LIQUID.PKT PO SCH (09:16)
[2022-09-26] MEDS: MULTIVITAMINS (DAILY MVI) TABLET (FP) PO SCH (09:16)
[2022-09-26] MEDS: ENOXAPARIN NA (PORCINE) 40 MG/0.4 ML DISP.SYRIN SQ SCH (09:16)
[2022-09-26] MEDS: ASCORBIC ACID 500 MG TABLET (FP) PO SCH (09:16)
[2022-09-26] MEDS: QUEtiapine FUMARATE 25 MG TABLET PO SCH ×2 (09:23→21:18)
[2022-09-26] MEDS: PANTOPRAZOLE SODIUM 40 MG VIAL IVPUSH SCH (09:23)
[2022-09-26] MEDS: HYDROCORTISONE SOD SUCCINATE 100 MG/2 ML VIAL IVPUSH SCH (09:24)
[2022-09-26] MEDS: MIDODRINE HCL 5 MG TABLET PO SCH ×3 (09:24→18:26)
[2022-09-26] MEDS: SODIUM CHLORIDE 1,000 ML IV SCH (15:09)
[2022-09-26] MEDS: METOPROLOL TARTRATE 25 MG TABLET (FP) PO SCH (21:18)
[2022-09-27] MEDS: MEROPENEM 1 GM in DEXTROSE 5%-WATER 100 ML IVPB SCH ×3 (01:07→17:00)
[2022-09-27] MEDS: INSULIN SLIDING SCALE (NOVOLOG) 1 VIAL SQ SCH ×4 (06:04→21:49)
[2022-09-27] MEDS: AMINO ACIDS/PROTEIN HYDROLYS 30 ML LIQUID.PKT PO SCH (09:00)
[2022-09-27] MEDS: ENOXAPARIN NA (PORCINE) 40 MG/0.4 ML DISP.SYRIN SQ SCH (09:12)
[2022-09-27] MEDS: MIDODRINE HCL 5 MG TABLET PO SCH ×3 (09:12→17:00)
[2022-09-27] MEDS: PANTOPRAZOLE SODIUM 40 MG VIAL IVPUSH SCH (09:12)
[2022-09-27] MEDS: ASCORBIC ACID 500 MG TABLET (FP) PO SCH (09:13)
[2022-09-27] MEDS: METOPROLOL TARTRATE 25 MG TABLET (FP) PO SCH ×2 (09:13→21:49)
[2022-09-27] MEDS: MULTIVITAMINS (DAILY MVI) TABLET (FP) PO SCH (09:13)
[2022-09-27] MEDS: SODIUM CHLORIDE 1,000 ML IV SCH (09:13)
[2022-09-27] MEDS: QUEtiapine FUMARATE 25 MG TABLET PO SCH ×2 (09:13→21:49)
[2022-09-27] MEDS: ACETAMINOPHEN 325 MG TABLET (FP) PO PRN (22:44)
[2022-09-28] MEDS: MEROPENEM 1 GM in DEXTROSE 5%-WATER 100 ML IVPB SCH ×3 (02:24→17:40)
[2022-09-28] MEDS: INSULIN SLIDING SCALE (NOVOLOG) 1 VIAL SQ SCH ×4 (06:21→21:47)
[2022-09-28] MEDS: AMINO ACIDS/PROTEIN HYDROLYS 30 ML LIQUID.PKT PO SCH (08:32)
[2022-09-28] MEDS: MIDODRINE HCL 5 MG TABLET PO SCH ×3 (10:05→17:40)
[2022-09-28] MEDS: MULTIVITAMINS (DAILY MVI) TABLET (FP) PO SCH (10:05)
[2022-09-28] MEDS: ASCORBIC ACID 500 MG TABLET (FP) PO SCH (10:05)
[2022-09-28] MEDS: METOPROLOL TARTRATE 25 MG TABLET (FP) PO SCH ×2 (10:05→21:47)
[2022-09-28] MEDS: QUEtiapine FUMARATE 25 MG TABLET PO SCH ×2 (10:06→21:48)
[2022-09-28] MEDS: ENOXAPARIN NA (PORCINE) 40 MG/0.4 ML DISP.SYRIN SQ SCH (10:06)
[2022-09-28] MEDS: PANTOPRAZOLE SODIUM 40 MG VIAL IVPUSH SCH (10:06)
[2022-09-29] MEDS: MEROPENEM 1 GM in DEXTROSE 5%-WATER 100 ML IVPB SCH ×3 (01:58→17:56)
[2022-09-29] MEDS: INSULIN SLIDING SCALE (NOVOLOG) 1 VIAL SQ SCH ×4 (06:19→21:58)
[2022-09-29 07:04] LABS: BASO % 0.4 % (0-2.0); HEMATOCRIT 34.2 % (35.4-49); HEMOGLOBIN 11.2 GM/dL (11.7-16.9); LYMPH % 24.7 % (8-40); MCH 30.1 pg (25.7-33.7); MCHC 32.7 g/dl (32.0-35.9); MEAN PLT VOLUME 8.1 fl (7.5-11.1); MONO % 8.1 % (3.8-10.2); NEUT % 65.8 % (42.8-82.8); PLATELET COUNT 323 10^3/uL (134-434); RBC 3.71 M/mm3 (4.00-5.60); RDW 16.3 % (11.9-15.9); WHITE BLOOD COUNT 19.2 K/mm3 (4.0-10.0)
[2022-09-29 07:24] LABS: CALCIUM 7.5 mg/dL (8.5-10.1)
[2022-09-29 07:25] LABS: ALBUMIN 1.5 g/dl (3.4-5.0); BLOOD UREA NITROGEN 15.3 mg/dL (7-18)
[2022-09-29 07:28] LABS: CREATININE 0.3 mg/dL (0.55-1.3)
[2022-09-29 07:30] LABS: BILIRUBIN,TOTAL 1.2 mg/dL (0.2-1)
[2022-09-29] MEDS: AMINO ACIDS/PROTEIN HYDROLYS 30 ML LIQUID.PKT PO SCH (07:56)
[2022-09-29] MEDS: ASCORBIC ACID 500 MG TABLET (FP) PO SCH (09:02)
[2022-09-29] MEDS: ENOXAPARIN NA (PORCINE) 40 MG/0.4 ML DISP.SYRIN SQ SCH (09:03)
[2022-09-29] MEDS: MULTIVITAMINS (DAILY MVI) TABLET (FP) PO SCH (09:03)
[2022-09-29] MEDS: METOPROLOL TARTRATE 25 MG TABLET (FP) PO SCH ×2 (09:03→21:58)
[2022-09-29] MEDS: MIDODRINE HCL 5 MG TABLET PO SCH ×3 (09:03→17:56)
[2022-09-29] MEDS: QUEtiapine FUMARATE 25 MG TABLET PO SCH ×2 (09:03→21:58)
[2022-09-29] MEDS: PANTOPRAZOLE SODIUM 40 MG VIAL IVPUSH SCH (09:04)
[2022-09-29] MEDS: ACETAMINOPHEN 325 MG TABLET (FP) PO PRN (22:00)
[2022-09-30] MEDS: MEROPENEM 1 GM in DEXTROSE 5%-WATER 100 ML IVPB SCH ×3 (02:52→17:21)
[2022-09-30] MEDS: INSULIN SLIDING SCALE (NOVOLOG) 1 VIAL SQ SCH ×4 (06:48→21:26)
[2022-09-30] MEDS: MIDODRINE HCL 5 MG TABLET PO SCH ×3 (10:43→17:22)
[2022-09-30] MEDS: MULTIVITAMINS (DAILY MVI) TABLET (FP) PO SCH (10:43)
[2022-09-30] MEDS: ENOXAPARIN NA (PORCINE) 40 MG/0.4 ML DISP.SYRIN SQ SCH (10:43)
[2022-09-30] MEDS: PANTOPRAZOLE SODIUM 40 MG VIAL IVPUSH SCH (10:43)
[2022-09-30] MEDS: QUEtiapine FUMARATE 25 MG TABLET PO SCH ×2 (10:44→21:10)
[2022-09-30] MEDS: AMINO ACIDS/PROTEIN HYDROLYS 30 ML LIQUID.PKT PO SCH (10:44)
[2022-09-30] MEDS: ASCORBIC ACID 500 MG TABLET (FP) PO SCH (10:44)
[2022-09-30] MEDS: METOPROLOL TARTRATE 25 MG TABLET (FP) PO SCH ×2 (10:44→21:10)
[2022-09-30 13:32] LABS: BASO % 0.5 % (0-2.0); EOS % 1.6 % (0-4.5); HEMATOCRIT 32.4 % (35.4-49); HEMOGLOBIN 10.5 GM/dL (11.7-16.9); MCH 29.9 pg (25.7-33.7); MCHC 32.3 g/dl (32.0-35.9); MEAN CELL VOLUME 92.6 fl (80-96); MEAN PLT VOLUME 8.2 fl (7.5-11.1); MONO % 8.2 % (3.8-10.2); NEUT % 66.7 % (42.8-82.8); PLATELET COUNT 303 10^3/uL (134-434); RDW 16.3 % (11.9-15.9); WHITE BLOOD COUNT 15.8 K/mm3 (4.0-10.0)
[2022-09-30 13:57] LABS: ALBUMIN 1.4 g/dl (3.4-5.0); CALCIUM 7.9 mg/dL (8.5-10.1)
[2022-09-30 13:58] LABS: BLOOD UREA NITROGEN 17.6 mg/dL (7-18)
[2022-09-30 14:01] LABS: CREATININE 0.3 mg/dL (0.55-1.3)
[2022-09-30 14:02] LABS: TOT PROT 4.9 g/dl (6.4-8.2)
[2022-09-30 14:07] LABS: BILIRUBIN,TOTAL 1.1 mg/dL (0.2-1)
[2022-10-01] MEDS: MEROPENEM 1 GM in DEXTROSE 5%-WATER 100 ML IVPB SCH ×3 (02:45→17:14)
[2022-10-01] MEDS: INSULIN SLIDING SCALE (NOVOLOG) 1 VIAL SQ SCH ×4 (06:05→21:16)
[2022-10-01] MEDS: AMINO ACIDS/PROTEIN HYDROLYS 30 ML LIQUID.PKT PO SCH (08:57)
[2022-10-01] MEDS: PANTOPRAZOLE SODIUM 40 MG VIAL IVPUSH SCH (09:00)
[2022-10-01] MEDS: ASCORBIC ACID 500 MG TABLET (FP) PO SCH (09:01)
[2022-10-01] MEDS: MIDODRINE HCL 5 MG TABLET PO SCH ×3 (09:01→17:14)
[2022-10-01] MEDS: MULTIVITAMINS (DAILY MVI) TABLET (FP) PO SCH (09:01)
[2022-10-01] MEDS: ENOXAPARIN NA (PORCINE) 40 MG/0.4 ML DISP.SYRIN SQ SCH (09:01)
[2022-10-01] MEDS: METOPROLOL TARTRATE 25 MG TABLET (FP) PO SCH ×2 (09:01→21:16)
[2022-10-01] MEDS: QUEtiapine FUMARATE 25 MG TABLET PO SCH ×2 (09:01→21:16)
[2022-10-02] MEDS: MEROPENEM 1 GM in DEXTROSE 5%-WATER 100 ML IVPB SCH ×2 (02:41→09:35)
[2022-10-02] MEDS: INSULIN SLIDING SCALE (NOVOLOG) 1 VIAL SQ SCH ×3 (07:41→17:35)
[2022-10-02 07:51] LABS: BASO % 0.8 % (0-2.0); EOS % 2.8 % (0-4.5); HEMATOCRIT 32.3 % (35.4-49); HEMOGLOBIN 10.9 GM/dL (11.7-16.9); LYMPH % 18.8 % (8-40); MCH 31.2 pg (25.7-33.7); MCHC 33.8 g/dl (32.0-35.9); MEAN CELL VOLUME 92.3 fl (80-96); MEAN PLT VOLUME 9.1 fl (7.5-11.1); MONO % 6.2 % (3.8-10.2); NEUT % 71.4 % (42.8-82.8); PLATELET COUNT 350 10^3/uL (134-434); RDW 15.5 % (11.9-15.9); WHITE BLOOD COUNT 12.5 K/mm3 (4.0-10.0)
[2022-10-02 08:11] LABS: CALCIUM 7.7 mg/dL (8.5-10.1)
[2022-10-02 08:12] LABS: ALBUMIN 1.4 g/dl (3.4-5.0); BLOOD UREA NITROGEN 18.8 mg/dL (7-18)
[2022-10-02 08:15] LABS: CREATININE 0.3 mg/dL (0.55-1.3)
[2022-10-02 08:18] LABS: BILIRUBIN,TOTAL 0.8 mg/dL (0.2-1)
[2022-10-02] MEDS: PANTOPRAZOLE SODIUM 40 MG VIAL IVPUSH SCH (09:34)
[2022-10-02] MEDS: ENOXAPARIN NA (PORCINE) 40 MG/0.4 ML DISP.SYRIN SQ SCH (09:34)
[2022-10-02] MEDS: AMINO ACIDS/PROTEIN HYDROLYS 30 ML LIQUID.PKT PO SCH (09:34)
[2022-10-02] MEDS: ASCORBIC ACID 500 MG TABLET (FP) PO SCH (09:35)
[2022-10-02] MEDS: MULTIVITAMINS (DAILY MVI) TABLET (FP) PO SCH (09:35)
[2022-10-02] MEDS: METOPROLOL TARTRATE 25 MG TABLET (FP) PO SCH (09:35)
[2022-10-02] MEDS: MIDODRINE HCL 5 MG TABLET PO SCH ×2 (09:35→13:14)
[2022-10-02] MEDS: QUEtiapine FUMARATE 25 MG TABLET PO SCH (09:36)
[2022-10-02 16:25] VITALS: BP 107/67; PULSE 95; RESP 22; TEMP 98.3
[2022-10-03] MEDS ORDERED: FAMOTIDINE 40 MG/5 ML ORAL SUSPENSION PEG SCH (10:00)
== END 2022-10-02 18:00 | DRG 4 ==
LOC: JER 21:51 → JICU 08-28 00:43 → J2W 09-07 06:37 → J5S 09-13 21:06 → JICU 09-16 10:06 → J2W 09-28 15:38
PROVIDERS: ADMIT Internal Medicine; ATTEND Internal Medicine
PROC: 5A1955Z Respiratory Ventilation, Greater than 96 Consecutive Hours (ICD-10-PCS; 2022-08-27)
PROC: 0BH17EZ Insertion of Endotracheal Airway into Trachea, Via Natural or Artificial Opening (ICD-10-PCS; 2022-08-27)
PROC: 05HN33Z Insertion of Infusion Device into Left Internal Jugular Vein, Percutaneous Approach (ICD-10-PCS; principal; 2022-08-28)
PROC: B544ZZA Ultrasonography of Left Jugular Veins, Guidance (ICD-10-PCS; 2022-08-28)
PROC: 5A2204Z Restoration of Cardiac Rhythm, Single (ICD-10-PCS; 2022-08-28)
PROC: 4A133B1 Monitoring of Arterial Pressure, Peripheral, Percutaneous Approach (ICD-10-PCS; 2022-08-30)
PROC: 4A133J1 Monitoring of Arterial Pulse, Peripheral, Percutaneous Approach (ICD-10-PCS; 2022-08-30)
PROC: 05HD33Z Insertion of Infusion Device into Right Cephalic Vein, Percutaneous Approach (ICD-10-PCS; 2022-09-03)
PROC: B54MZZA Ultrasonography of Right Upper Extremity Veins, Guidance (ICD-10-PCS; 2022-09-03)
PROC: 05HM33Z Insertion of Infusion Device into Right Internal Jugular Vein, Percutaneous Approach (ICD-10-PCS; 2022-09-18)
PROC: B543ZZA Ultrasonography of Right Jugular Veins, Guidance (ICD-10-PCS; 2022-09-18)
PROC: 0B113Z4 Bypass Trachea to Cutaneous, Percutaneous Approach (ICD-10-PCS; 2022-09-23)
PROC: 0BJ08ZZ Inspection of Tracheobronchial Tree, Via Natural or Artificial Opening Endoscopic (ICD-10-PCS; 2022-09-23)
PROC: 0DH64UZ Insertion of Feeding Device into Stomach, Percutaneous Endoscopic Approach (ICD-10-PCS; 2022-09-26)
DX: A41.89 Other specified sepsis (principal); G93.41 Metabolic encephalopathy; J96.01 Acute respiratory failure with hypoxia; U07.1 COVID-19; R65.21 Severe sepsis with septic shock; J15.5 Pneumonia due to Escherichia coli; J69.0 Pneumonitis due to inhalation of food and vomit; I48.92 Unspecified atrial flutter; I24.8 Other forms of acute ischemic heart disease; N17.9 Acute kidney failure, unspecified; E87.0 Hyperosmolality and hypernatremia; J98.11 Atelectasis; N39.0 Urinary tract infection, site not specified; K92.2 Gastrointestinal hemorrhage, unspecified; I10 Essential (primary) hypertension; E11.9 Type 2 diabetes mellitus without complications; E78.00 Pure hypercholesterolemia, unspecified; F03.90 Unspecified dementia, unspecified severity, without behavioral disturbance, psychotic disturbance, mood disturbance, and anxiety; R77.8 Other specified abnormalities of plasma proteins; R74.01 Elevation of levels of liver transaminase levels; R00.0 Tachycardia, unspecified; I95.9 Hypotension, unspecified; G61.89 Other inflammatory polyneuropathies; E87.6 Hypokalemia; R33.9 Retention of urine, unspecified; Z66 Do not resuscitate; E87.5 Hyperkalemia; R13.19 Other dysphagia; K76.0 Fatty (change of) liver, not elsewhere classified
CPT/HCPCS: 0241U-QW; 31500; 36415; 36600; 71045-TC-FY; 76705-TC; 80048; 80053; 80076; 81003; 82272; 82570; 82728; 82803; 82962; 82977; 83540; 83550; 83605; 83735; 84100; 84300; 84484; 85025; 85027; 85045; 85610; 85730; 86140; 86850; 86900; 86901; 87040; 87070; 87077; 87086; 87186; 87205; 93005; 93010; 93306-TC; 93970-TC; 94002; 99291; C9803-CS; J1644; J3490; U0003; U0005

== ENCOUNTER 2022-10-07 14:23 | Inpatient (IN) | payer OTHER, BC ==
[2022-10-07 15:55] LABS: VENOUS BASE EXCESS 5.9 mmol/L (-2-2); VENOUS O2 SATURATION 94.6 % (70-80); VENOUS PCO2 50.8 mmHg (38-52); VENOUS PH 7.411 (7.310-7.410)
[2022-10-07 15:59] LABS: BASO % 0.8 % (0-2.0); EOS % 1.8 % (0-4.5); HEMATOCRIT 30.1 % (35.4-49); LYMPH % 17.2 % (8-40); MCH 30.2 pg (25.7-33.7); MCHC 33.2 g/dl (32.0-35.9); MEAN PLT VOLUME 8.3 fl (7.5-11.1); MONO % 8.6 % (3.8-10.2); NEUT % 71.6 % (42.8-82.8); PLATELET COUNT 394 10^3/uL (134-434); RBC 3.31 M/mm3 (4.00-5.60); RDW 15.2 % (11.9-15.9); WHITE BLOOD COUNT 12.8 K/mm3 (4.0-10.0)
[2022-10-07 16:07] LABS: POTASSIUM 4.9 mmol/L (3.5-5.1)
[2022-10-07 16:08] LABS: ALBUMIN 1.6 g/dl (3.4-5.0); CALCIUM 8.1 mg/dL (8.5-10.1); INR 1.17 (0.83-1.09); PROTHROMBIN TIME (PATIENT) 13.5 SEC (9.7-13.0)
[2022-10-07 16:09] LABS: BLOOD UREA NITROGEN 24.9 mg/dL (7-18)
[2022-10-07 16:11] LABS: ACTIVATED PTT 32.1 SECONDS (25.2-36.5)
[2022-10-07 16:12] LABS: CREATININE 0.3 mg/dL (0.55-1.3)
[2022-10-07 16:13] LABS: BILIRUBIN,TOTAL 0.4 mg/dL (0.2-1); TOT PROT 5.4 g/dl (6.4-8.2)
[2022-10-07] MEDS ORDERED: VANCOMYCIN 1 GM in D5W (PRE-DOCKED) 1,000 MG/250 ML (RESTRICTED TO ID ONLY IVPB ONE (16:14)
[2022-10-07] MEDS ORDERED: SODIUM CHLORIDE 0.9% 500 ML INFUS.BAG IV ONE (16:14)
[2022-10-07] MEDS ORDERED: PIPERACILLIN/TAZOB 4.5 GM 4.5 GM in DEXTROSE 5%-WATER 100 ML IVPB ONE (16:14)
[2022-10-07] MEDS ORDERED: VANCOMYCIN 1 GM/200 ML PREMIX BAG (RESTRICTED TO ID ONLY) IVPB ONE (18:45)
[2022-10-07] MEDS ORDERED: fentaNYL CITRATE 250 MCG/5 ML VIAL ONE (19:51)
[2022-10-07] MEDS ORDERED: fentaNYL CITRATE 250 MCG/5 ML VIAL IVPUSH ONE (20:38)
[2022-10-07] MEDS: MUPIROCIN 2% TOPICAL OINTMENT FOR DECOLONIZATION NS SCH (22:22)
[2022-10-07] MEDS: HEPARIN NA (PORCINE) 5,000 UNITS/ML 1ML VIAL SQ SCH (22:22)
[2022-10-07] MEDS: CHLORHEXIDINE GLUCONATE 4% CLEANSER FOR DECOLONIZATION TP SCH (22:23)
[2022-10-08 05:54] LABS: EPI CELLS 2 /uL (0-25.1); HYALINE CASTS 4 /uL (0-3.1); PH,URINE 5.5 (5.0-8.0); URINE APPEARANCE CLEAR; URINE BACTERIA 15 /uL (0-1359); URINE BILIRUBIN NEGATIVE (NEGATIVE); URINE COLOR DK YELLOW; URINE GLUCOSE (UA) NEGATIVE (NEGATIVE); URINE KETONE NEGATIVE (NEGATIVE); URINE LEUK ESTERASE 2+ (NEGATIVE); URINE NITRITE NEGATIVE (NEGATIVE); URINE PROTEIN 1+ (NEGATIVE); URINE RBC 92 /uL (0-23.9); URINE WBC 1113 /uL (0-25.8)
[2022-10-08] MEDS: HEPARIN NA (PORCINE) 5,000 UNITS/ML 1ML VIAL SQ SCH ×3 (06:44→21:43)
[2022-10-08 06:51] LABS: YEAST NONE SEEN (NEGATIVE)
[2022-10-08 07:32] LABS: POTASSIUM 4.8 mmol/L (3.5-5.1)
[2022-10-08 07:35] LABS: CALCIUM 8.2 mg/dL (8.5-10.1)
[2022-10-08 07:36] LABS: ALBUMIN 1.4 g/dl (3.4-5.0)
[2022-10-08 07:39] LABS: CREATININE 0.3 mg/dL (0.55-1.3); PHOSPHOROUS 3.2 mg/dL (2.5-4.9)
[2022-10-08 07:40] LABS: BILIRUBIN,TOTAL 0.8 mg/dL (0.2-1); TOT PROT 5.2 g/dl (6.4-8.2)
[2022-10-08 07:58] LABS: HEMATOCRIT 29.7 % (35.4-49); HEMOGLOBIN 9.9 GM/dL (11.7-16.9); MCH 30.5 pg (25.7-33.7); MCHC 33.3 g/dl (32.0-35.9); MEAN CELL VOLUME 91.6 fl (80-96); MEAN PLT VOLUME 8.4 fl (7.5-11.1); PLATELET COUNT 414 10^3/uL (134-434); RBC 3.24 M/mm3 (4.00-5.60); RDW 15.1 % (11.9-15.9); WHITE BLOOD COUNT 15.4 K/mm3 (4.0-10.0)
[2022-10-08 08:39] LABS: ANISOCYTOSIS 1+; MACROCYTOSIS 1+
[2022-10-08] MEDS: METOPROLOL TARTRATE 25 MG TABLET (FP) GT SCH ×2 (11:50→21:44)
[2022-10-08] MEDS: MIDODRINE HCL 5 MG TABLET GT SCH ×3 (11:50→18:17)
[2022-10-08] MEDS: ASPIRIN 81 MG CHEWABLE TABLETS GT SCH (11:50)
[2022-10-08] MEDS: QUEtiapine FUMARATE 25 MG TABLET GT SCH ×2 (11:50→21:43)
[2022-10-08] MEDS: MUPIROCIN 2% TOPICAL OINTMENT FOR DECOLONIZATION NS SCH ×2 (11:51→21:42)
[2022-10-08] MEDS: PIPERACILLIN/TAZOB 4.5 GM 4.5 GM in DEXTROSE 5%-WATER 100 ML IVPB SCH ×3 (13:01→21:42)
[2022-10-08] MEDS: VANCOMYCIN/WATER 1,250 MG/250 ML BAG (RESTRICTED TO ID ONLY) IVPB SCH (17:00)
[2022-10-08] MEDS: AMINO ACIDS/PROTEIN HYDROLYS 30 ML LIQUID.PKT GT SCH (18:19)
[2022-10-08] MEDS: CHLORHEXIDINE GLUCONATE 4% CLEANSER FOR DECOLONIZATION TP SCH (21:43)
[2022-10-09] MEDS: PIPERACILLIN/TAZOB 4.5 GM 4.5 GM in DEXTROSE 5%-WATER 100 ML IVPB SCH ×4 (02:30→18:20)
[2022-10-09] MEDS: VANCOMYCIN/WATER 1,250 MG/250 ML BAG (RESTRICTED TO ID ONLY) IVPB SCH ×2 (03:23→16:53)
[2022-10-09] MEDS: HEPARIN NA (PORCINE) 5,000 UNITS/ML 1ML VIAL SQ SCH ×3 (05:59→21:41)
[2022-10-09 07:35] LABS: BASO % 0.8 % (0-2.0); EOS % 3.8 % (0-4.5); HEMOGLOBIN 8.9 GM/dL (11.7-16.9); LYMPH % 24.8 % (8-40); MCH 29.9 pg (25.7-33.7); MEAN CELL VOLUME 90.6 fl (80-96); MEAN PLT VOLUME 7.8 fl (7.5-11.1); NEUT % 63.6 % (42.8-82.8); PLATELET COUNT 404 10^3/uL (134-434); RBC 2.98 M/mm3 (4.00-5.60); RDW 15.1 % (11.9-15.9); WHITE BLOOD COUNT 11.9 K/mm3 (4.0-10.0)
[2022-10-09 07:49] LABS: POTASSIUM 3.8 mmol/L (3.5-5.1)
[2022-10-09 07:59] LABS: ALBUMIN 1.3 g/dl (3.4-5.0)
[2022-10-09 08:00] LABS: BILIRUBIN,TOTAL 0.5 mg/dL (0.2-1); BLOOD UREA NITROGEN 21.6 mg/dL (7-18); MAGNESIUM 1.7 mg/dL (1.8-2.4); TOT PROT 4.9 g/dl (6.4-8.2)
[2022-10-09 08:02] LABS: CREATININE 0.3 mg/dL (0.55-1.3)
[2022-10-09] MEDS: AMINO ACIDS/PROTEIN HYDROLYS 30 ML LIQUID.PKT GT SCH ×2 (09:44→18:15)
[2022-10-09] MEDS: ASPIRIN 81 MG CHEWABLE TABLETS GT SCH (09:47)
[2022-10-09] MEDS: QUEtiapine FUMARATE 25 MG TABLET GT SCH ×2 (09:47→21:40)
[2022-10-09] MEDS: MIDODRINE HCL 5 MG TABLET GT SCH ×3 (09:47→18:17)
[2022-10-09] MEDS: METOPROLOL TARTRATE 25 MG TABLET (FP) GT SCH ×2 (09:47→21:41)
[2022-10-09] MEDS: ASCORBIC ACID 500 MG/5 ML UNIT DOSE CUP GT SCH (09:48)
[2022-10-09] MEDS: MUPIROCIN 2% TOPICAL OINTMENT FOR DECOLONIZATION NS SCH ×2 (09:49→21:43)
[2022-10-09] MEDS ORDERED: VANCOMYCIN/WATER 1,250 MG/250 ML BAG (RESTRICTED TO ID ONLY) IVPB SCH (16:00)
[2022-10-09] MEDS: VANCOMYCIN/WATER 1250 MG 1,250 MG/250 ML BAG IVPB SCH (18:18)
[2022-10-09] MEDS: CHLORHEXIDINE GLUCONATE 4% CLEANSER FOR DECOLONIZATION TP SCH (21:43)
[2022-10-10] MEDS: PIPERACILLIN/TAZOB 4.5 GM 4.5 GM in DEXTROSE 5%-WATER 100 ML IVPB SCH ×4 (00:07→17:22)
[2022-10-10] MEDS: VANCOMYCIN/WATER 1250 MG 1,250 MG/250 ML BAG IVPB SCH (05:27)
[2022-10-10] MEDS: HEPARIN NA (PORCINE) 5,000 UNITS/ML 1ML VIAL SQ SCH ×3 (06:35→21:34)
[2022-10-10] MEDS: AMINO ACIDS/PROTEIN HYDROLYS 30 ML LIQUID.PKT GT SCH ×2 (09:15→17:21)
[2022-10-10] MEDS: ASPIRIN 81 MG CHEWABLE TABLETS GT SCH (09:18)
[2022-10-10] MEDS: QUEtiapine FUMARATE 25 MG TABLET GT SCH (09:18)
[2022-10-10] MEDS: ASCORBIC ACID 500 MG/5 ML UNIT DOSE CUP GT SCH (09:18)
[2022-10-10] MEDS: METOPROLOL TARTRATE 25 MG TABLET (FP) GT SCH ×2 (09:19→21:35)
[2022-10-10] MEDS: MIDODRINE HCL 5 MG TABLET GT SCH ×3 (09:19→17:21)
[2022-10-10] MEDS: MUPIROCIN 2% TOPICAL OINTMENT FOR DECOLONIZATION NS SCH ×2 (09:25→21:36)
[2022-10-10] MEDS: QUEtiapine FUMARATE 50 MG TABLET GT SCH (21:35)
[2022-10-10] MEDS: CHLORHEXIDINE GLUCONATE 4% CLEANSER FOR DECOLONIZATION TP SCH (21:36)
[2022-10-11] MEDS: HEPARIN NA (PORCINE) 5,000 UNITS/ML 1ML VIAL SQ SCH ×3 (06:07→21:39)
[2022-10-11] MEDS: PIPERACILLIN/TAZOB 4.5 GM 4.5 GM in DEXTROSE 5%-WATER 100 ML IVPB SCH (07:40)
[2022-10-11] MEDS: VANCOMYCIN/WATER 1,250 MG/250 ML BAG (RESTRICTED TO ID ONLY) IVPB SCH (07:40)
[2022-10-11] MEDS ORDERED: ASPIRIN 81 MG CHEWABLE TABLETS GT SCH (10:00)
[2022-10-11] MEDS: QUEtiapine FUMARATE 25 MG TABLET GT SCH (10:19)
[2022-10-11] MEDS: MUPIROCIN 2% TOPICAL OINTMENT FOR DECOLONIZATION NS SCH ×2 (10:19→21:38)
[2022-10-11] MEDS: ASCORBIC ACID 500 MG/5 ML UNIT DOSE CUP GT SCH (10:19)
[2022-10-11] MEDS: AMINO ACIDS/PROTEIN HYDROLYS 30 ML LIQUID.PKT GT SCH ×2 (10:19→18:18)
[2022-10-11] MEDS: MIDODRINE HCL 5 MG TABLET GT SCH ×3 (10:19→18:18)
[2022-10-11] MEDS: METOPROLOL TARTRATE 25 MG TABLET (FP) GT SCH ×2 (10:19→21:39)
[2022-10-11 11:44] VITALS: BMI 27.3
[2022-10-11] MEDS: QUEtiapine FUMARATE 50 MG TABLET GT SCH (21:39)
[2022-10-11] MEDS: CHLORHEXIDINE GLUCONATE 4% CLEANSER FOR DECOLONIZATION TP SCH (21:39)
[2022-10-12] MEDS ORDERED: LACTATED RINGERS SOLUTION 1000 ML INFUS.BAG IV ONE (00:43)
[2022-10-12 01:15] LABS: HEMATOCRIT 26.2 % (35.4-49); HEMOGLOBIN 8.7 GM/dL (11.7-16.9); MCH 30.1 pg (25.7-33.7); MCHC 33.1 g/dl (32.0-35.9); MEAN CELL VOLUME 91.1 fl (80-96); PLATELET COUNT 555 10^3/uL (134-434); RBC 2.88 M/mm3 (4.00-5.60); RDW 14.9 % (11.9-15.9)
[2022-10-12] MEDS ORDERED: LACTATED RINGERS SOLUTION 1000 ML INFUS.BAG IV SCH (01:15)
[2022-10-12 01:21] LABS: INR 1.33 (0.83-1.09); PROTHROMBIN TIME (PATIENT) 15.4 SEC (9.7-13.0)
[2022-10-12 01:30] LABS: POTASSIUM 4.6 mmol/L (3.5-5.1)
[2022-10-12 01:32] LABS: CALCIUM 7.8 mg/dL (8.5-10.1)
[2022-10-12 01:34] LABS: ALBUMIN 1.4 g/dl (3.4-5.0); BLOOD UREA NITROGEN 21.2 mg/dL (7-18); MAGNESIUM 1.9 mg/dL (1.8-2.4)
[2022-10-12 01:37] LABS: BILIRUBIN,TOTAL 0.5 mg/dL (0.2-1); CREATININE 0.4 mg/dL (0.55-1.3); TOT PROT 5.1 g/dl (6.4-8.2)
[2022-10-12 02:01] LABS: BILIRUBIN,DIRECT 0.3 mg/dL (0.0-0.2)
[2022-10-12] MEDS ORDERED: CALCIUM GLUCONATE 10% - 1,000 MG/10 ML VIAL IVPUSH ONE (02:59)
[2022-10-12 03:11] LABS: ANISOCYTOSIS 1+; MACROCYTOSIS 1+
[2022-10-12] MEDS: CALCIUM GLUCONATE 10% - 1,000 MG/10 ML VIAL IVPB ONE ×2 (03:21→04:18)
[2022-10-12 03:51] LABS: HEMATOCRIT 33.7 % (35.4-49); HEMOGLOBIN 11.4 GM/dL (11.7-16.9); MCH 29.3 pg (25.7-33.7); MCHC 33.9 g/dl (32.0-35.9); MEAN CELL VOLUME 86.4 fl (80-96); MEAN PLT VOLUME 7.5 fl (7.5-11.1); PLATELET COUNT 454 10^3/uL (134-434); WHITE BLOOD COUNT 23.2 K/mm3 (4.0-10.0)
[2022-10-12] MEDS: PANTOPRAZOLE SODIUM 80 MG in SODIUM CHLORIDE 100 ML IVPB SCH ×2 (04:54→15:19)
[2022-10-12] MEDS: AMINO ACIDS/PROTEIN HYDROLYS 30 ML LIQUID.PKT GT SCH ×2 (08:11→16:29)
[2022-10-12] MEDS ORDERED: PHYTONADIONE 10 MG/1 ML AMP IVPB ONE (08:13)
[2022-10-12] MEDS: morphine SULFATE 4 MG/ML VIAL IVPUSH PRN (08:33)
[2022-10-12] MEDS: AMIODARONE IN DEXTROSE,ISO-OSM 360 MG/200 ML BAG IV SCH ×4 (08:36→18:03)
[2022-10-12] MEDS ORDERED: AMIODARONE HCL INJECTION 150 MG in DEXTROSE 5%-WATER - 100 ML IVPB ONE (09:00)
[2022-10-12] MEDS ORDERED: AMIODARONE IN DEXTROSE,ISO-OSM 150 MG/100 ML BAG IVPB ONE (09:00)
[2022-10-12 09:29] LABS: ANISOCYTOSIS 2+; MACROCYTOSIS 0
[2022-10-12] MEDS: MIDODRINE HCL 5 MG TABLET GT SCH ×3 (09:45→18:04)
[2022-10-12] MEDS: ASCORBIC ACID 500 MG/5 ML UNIT DOSE CUP GT SCH (09:46)
[2022-10-12] MEDS: QUEtiapine FUMARATE 25 MG TABLET GT SCH (09:46)
[2022-10-12] MEDS: MUPIROCIN 2% TOPICAL OINTMENT FOR DECOLONIZATION NS SCH (09:46)
[2022-10-12 12:06] LABS: HEMATOCRIT 31.6 % (35.4-49); HEMOGLOBIN 10.8 GM/dL (11.7-16.9); MCH 29.2 pg (25.7-33.7); MCHC 34.1 g/dl (32.0-35.9); MEAN CELL VOLUME 85.6 fl (80-96); MEAN PLT VOLUME 8.1 fl (7.5-11.1); PLATELET COUNT 407 10^3/uL (134-434); RDW 16.1 % (11.9-15.9); WHITE BLOOD COUNT 22.9 K/mm3 (4.0-10.0)
[2022-10-12 15:31] LABS: HEMATOCRIT 31.6 % (35.4-49); HEMOGLOBIN 10.9 GM/dL (11.7-16.9); MCH 29.3 pg (25.7-33.7); MCHC 34.4 g/dl (32.0-35.9); MEAN CELL VOLUME 85.2 fl (80-96); MEAN PLT VOLUME 7.9 fl (7.5-11.1); PLATELET COUNT 449 10^3/uL (134-434); RBC 3.71 M/mm3 (4.00-5.60); RDW 16.2 % (11.9-15.9); WHITE BLOOD COUNT 24.3 K/mm3 (4.0-10.0)
[2022-10-12] MEDS: CHLORHEXIDINE GLUCONATE 4% CLEANSER FOR DECOLONIZATION TP SCH (21:23)
[2022-10-12] MEDS: QUEtiapine FUMARATE 50 MG TABLET GT SCH (21:24)
[2022-10-13] MEDS: AMIODARONE IN DEXTROSE,ISO-OSM 360 MG/200 ML BAG IV SCH ×3 (00:18→21:06)
[2022-10-13] MEDS: PANTOPRAZOLE SODIUM 80 MG in SODIUM CHLORIDE 100 ML IVPB SCH ×3 (00:19→21:51)
[2022-10-13] MEDS: AMINO ACIDS/PROTEIN HYDROLYS 30 ML LIQUID.PKT GT SCH ×2 (09:17→17:29)
[2022-10-13] MEDS: METOPROLOL TARTRATE 25 MG TABLET (FP) GT SCH ×2 (09:17→22:05)
[2022-10-13] MEDS: ASCORBIC ACID 500 MG/5 ML UNIT DOSE CUP GT SCH (09:18)
[2022-10-13] MEDS: MIDODRINE HCL 5 MG TABLET GT SCH ×3 (09:18→17:29)
[2022-10-13] MEDS: QUEtiapine FUMARATE 25 MG TABLET GT SCH (09:18)
[2022-10-13] MEDS ORDERED: PIPERACILLIN/TAZOB 3.375 GM 3.375 GM in DEXTROSE 5%-WATER - 50 ML IVPB SCH (10:00)
[2022-10-13] MEDS: PIPERACILLIN/TAZOB 3.375 GM 3.375 GM in DEXTROSE 5%-WATER - 50 ML IVPB SCH ×4 (10:18→18:49)
[2022-10-13 10:30] LABS: HEMATOCRIT 27.1 % (35.4-49); HEMOGLOBIN 9.4 GM/dL (11.7-16.9); MCH 29.8 pg (25.7-33.7); MCHC 34.7 g/dl (32.0-35.9); MEAN CELL VOLUME 85.9 fl (80-96); MEAN PLT VOLUME 7.6 fl (7.5-11.1); PLATELET COUNT 405 10^3/uL (134-434); RBC 3.16 M/mm3 (4.00-5.60); RDW 16.7 % (11.9-15.9); WHITE BLOOD COUNT 18.6 K/mm3 (4.0-10.0)
[2022-10-13 10:36] LABS: INR 1.17 (0.83-1.09); PROTHROMBIN TIME (PATIENT) 13.5 SEC (9.7-13.0)
[2022-10-13 10:54] LABS: POTASSIUM 3.6 mmol/L (3.5-5.1)
[2022-10-13 10:55] LABS: CALCIUM 8.2 mg/dL (8.5-10.1)
[2022-10-13 10:57] LABS: BLOOD UREA NITROGEN 33.3 mg/dL (7-18); MAGNESIUM 1.9 mg/dL (1.8-2.4)
[2022-10-13 11:00] LABS: CREATININE 0.3 mg/dL (0.55-1.3); PHOSPHOROUS 2.8 mg/dL (2.5-4.9)
[2022-10-13] MEDS: morphine SULFATE 4 MG/ML VIAL IVPUSH PRN (21:09)
[2022-10-13] MEDS: CHLORHEXIDINE GLUCONATE 4% CLEANSER FOR DECOLONIZATION TP SCH (21:52)
[2022-10-13] MEDS: QUEtiapine FUMARATE 50 MG TABLET GT SCH (21:53)
[2022-10-14] MEDS: PIPERACILLIN/TAZOB 3.375 GM 3.375 GM in DEXTROSE 5%-WATER - 50 ML IVPB SCH ×4 (02:56→17:59)
[2022-10-14] MEDS: PANTOPRAZOLE SODIUM 80 MG in SODIUM CHLORIDE 100 ML IVPB SCH ×3 (06:03→17:26)
[2022-10-14 07:49] LABS: HEMATOCRIT 29.3 % (35.4-49); MCH 29.4 pg (25.7-33.7); MEAN CELL VOLUME 86.5 fl (80-96); MEAN PLT VOLUME 7.9 fl (7.5-11.1); PLATELET COUNT 485 10^3/uL (134-434); RBC 3.39 M/mm3 (4.00-5.60); RDW 16.3 % (11.9-15.9)
[2022-10-14 08:13] LABS: POTASSIUM 3.6 mmol/L (3.5-5.1)
[2022-10-14 08:14] LABS: CALCIUM 7.9 mg/dL (8.5-10.1)
[2022-10-14 08:15] LABS: BLOOD UREA NITROGEN 29.9 mg/dL (7-18); MAGNESIUM 1.9 mg/dL (1.8-2.4)
[2022-10-14 08:18] LABS: CREATININE 0.4 mg/dL (0.55-1.3); PHOSPHOROUS 3.1 mg/dL (2.5-4.9)
[2022-10-14] MEDS: morphine SULFATE 4 MG/ML VIAL IVPUSH PRN (09:15)
[2022-10-14] MEDS: MIDODRINE HCL 5 MG TABLET GT SCH ×3 (09:23→17:26)
[2022-10-14] MEDS: AMINO ACIDS/PROTEIN HYDROLYS 30 ML LIQUID.PKT GT SCH ×2 (09:25→17:26)
[2022-10-14] MEDS: METOPROLOL TARTRATE 25 MG TABLET (FP) GT SCH ×2 (09:25→22:30)
[2022-10-14] MEDS: QUEtiapine FUMARATE 25 MG TABLET GT SCH (09:25)
[2022-10-14] MEDS: ASCORBIC ACID 500 MG/5 ML UNIT DOSE CUP GT SCH (09:25)
[2022-10-14] MEDS: QUEtiapine FUMARATE 50 MG TABLET GT SCH (22:30)
[2022-10-14] MEDS: CHLORHEXIDINE GLUCONATE 4% CLEANSER FOR DECOLONIZATION TP SCH (22:30)
[2022-10-14] MEDS: AMIODARONE HCL 200 MG TABLET NGT SCH (22:30)
[2022-10-15] MEDS: PIPERACILLIN/TAZOB 3.375 GM 3.375 GM in DEXTROSE 5%-WATER - 50 ML IVPB SCH ×3 (01:41→17:58)
[2022-10-15] MEDS: PANTOPRAZOLE SODIUM 80 MG in SODIUM CHLORIDE 100 ML IVPB SCH ×3 (03:18→21:05)
[2022-10-15] MEDS: AMINO ACIDS/PROTEIN HYDROLYS 30 ML LIQUID.PKT GT SCH ×2 (08:52→17:11)
[2022-10-15] MEDS: AMIODARONE HCL 200 MG TABLET NGT SCH ×2 (09:00→22:35)
[2022-10-15] MEDS: QUEtiapine FUMARATE 25 MG TABLET GT SCH (09:00)
[2022-10-15] MEDS: METOPROLOL TARTRATE 25 MG TABLET (FP) GT SCH ×2 (09:00→22:36)
[2022-10-15] MEDS: ASCORBIC ACID 500 MG/5 ML UNIT DOSE CUP GT SCH (09:01)
[2022-10-15] MEDS: MIDODRINE HCL 5 MG TABLET GT SCH ×3 (09:01→17:11)
[2022-10-15] MEDS: ACETAMINOPHEN 650 MG/20.3 ML ORAL SOLUTION (CUPS) GT PRN (10:53)
[2022-10-15 10:58] LABS: HEMATOCRIT 26.6 % (35.4-49); MCH 29.4 pg (25.7-33.7); MCHC 33.9 g/dl (32.0-35.9); MEAN CELL VOLUME 86.6 fl (80-96); MEAN PLT VOLUME 7.6 fl (7.5-11.1); PLATELET COUNT 401 10^3/uL (134-434); RBC 3.08 M/mm3 (4.00-5.60); RDW 15.9 % (11.9-15.9); WHITE BLOOD COUNT 20.4 K/mm3 (4.0-10.0)
[2022-10-15 11:14] LABS: POTASSIUM 3.1 mmol/L (3.5-5.1)
[2022-10-15 11:16] LABS: ALBUMIN 1.4 g/dl (3.4-5.0); BLOOD UREA NITROGEN 25.2 mg/dL (7-18); CALCIUM 7.8 mg/dL (8.5-10.1)
[2022-10-15 11:20] LABS: CREATININE 0.4 mg/dL (0.55-1.3)
[2022-10-15 11:21] LABS: BILIRUBIN,TOTAL 0.9 mg/dL (0.2-1)
[2022-10-15] MEDS: KCL 10 MEQ IVPB 10 MEQ/100 ML INFUS.BAG IVPB SCH ×2 (12:44→13:52)
[2022-10-15] MEDS: QUEtiapine FUMARATE 50 MG TABLET GT SCH (22:35)
[2022-10-15] MEDS: CHLORHEXIDINE GLUCONATE 4% CLEANSER FOR DECOLONIZATION TP SCH (22:36)
[2022-10-16] MEDS: PIPERACILLIN/TAZOB 3.375 GM 3.375 GM in DEXTROSE 5%-WATER - 50 ML IVPB SCH ×3 (01:47→18:00)
[2022-10-16] MEDS: PANTOPRAZOLE SODIUM 80 MG in SODIUM CHLORIDE 100 ML IVPB SCH ×2 (06:01→18:01)
[2022-10-16 08:02] LABS: BASO % 0.5 % (0-2.0); EOS % 6.8 % (0-4.5); HEMOGLOBIN 8.3 GM/dL (11.7-16.9); LYMPH % 22.6 % (8-40); MCH 29.2 pg (25.7-33.7); MCHC 33.2 g/dl (32.0-35.9); MEAN CELL VOLUME 87.8 fl (80-96); MEAN PLT VOLUME 7.8 fl (7.5-11.1); MONO % 6.4 % (3.8-10.2); NEUT % 63.7 % (42.8-82.8); PLATELET COUNT 412 10^3/uL (134-434); RBC 2.85 M/mm3 (4.00-5.60); RDW 16.2 % (11.9-15.9); WHITE BLOOD COUNT 14.7 K/mm3 (4.0-10.0)
[2022-10-16 08:10] LABS: CHLORIDE 108 mmol/L (98-107); SODIUM 142 mmol/L (136-145)
[2022-10-16 08:29] LABS: ALBUMIN 1.3 g/dl (3.4-5.0)
[2022-10-16 08:30] LABS: BLOOD UREA NITROGEN 23.4 mg/dL (7-18); CALCIUM 7.6 mg/dL (8.5-10.1); CO2 29 mmol/L (21-32); CREATININE 0.3 mg/dL (0.55-1.3); SGOT/AST 21 U/L (15-37); SGPT/ALT 15 U/L (13-61)
[2022-10-16 08:31] LABS: BILIRUBIN,TOTAL 0.9 mg/dL (0.2-1); GLUCOSE,RANDOM 102 mg/dL (74-106); TOT PROT 4.6 g/dl (6.4-8.2)
[2022-10-16 08:42] LABS: ALK PHOS 226 U/L (45-117); ANION GAP 5 MMOL/L (8-16); POTASSIUM 2.9 mmol/L (3.5-5.1)
[2022-10-16] MEDS: MIDODRINE HCL 5 MG TABLET GT SCH ×3 (10:28→18:00)
[2022-10-16] MEDS: AMIODARONE HCL 200 MG TABLET NGT SCH ×2 (10:29→23:25)
[2022-10-16] MEDS: METOPROLOL TARTRATE 25 MG TABLET (FP) GT SCH ×2 (10:29→23:25)
[2022-10-16] MEDS: QUEtiapine FUMARATE 25 MG TABLET GT SCH (10:29)
[2022-10-16] MEDS: AMINO ACIDS/PROTEIN HYDROLYS 30 ML LIQUID.PKT GT SCH ×2 (10:29→18:00)
[2022-10-16] MEDS: KCL 10 MEQ IVPB 10 MEQ/100 ML INFUS.BAG IVPB SCH ×3 (10:29→14:00)
[2022-10-16] MEDS: ASCORBIC ACID 500 MG/5 ML UNIT DOSE CUP GT SCH (10:45)
[2022-10-16] MEDS: AMINO ACIDS 4.25%/D5W 1,000 ML IV SCH (12:30)
[2022-10-16] MEDS ORDERED: QUEtiapine FUMARATE 25 MG TABLET ONE (23:22)
[2022-10-16] MEDS: QUEtiapine FUMARATE 50 MG TABLET GT SCH (23:53)
[2022-10-17] MEDS: PIPERACILLIN/TAZOB 3.375 GM 3.375 GM in DEXTROSE 5%-WATER - 50 ML IVPB SCH ×3 (02:03→19:30)
[2022-10-17] MEDS: ACETAMINOPHEN 650 MG/20.3 ML ORAL SOLUTION (CUPS) GT PRN (02:03)
[2022-10-17] MEDS: PANTOPRAZOLE SODIUM 80 MG in SODIUM CHLORIDE 100 ML IVPB SCH ×3 (02:33→23:35)
[2022-10-17 07:04] LABS: HEMATOCRIT 24.7 % (35.4-49); HEMOGLOBIN 8.3 GM/dL (11.7-16.9); MCH 29.5 pg (25.7-33.7); MCHC 33.7 g/dl (32.0-35.9); MEAN CELL VOLUME 87.5 fl (80-96); MEAN PLT VOLUME 7.9 fl (7.5-11.1); PLATELET COUNT 408 10^3/uL (134-434); RBC 2.82 M/mm3 (4.00-5.60); WHITE BLOOD COUNT 15.6 K/mm3 (4.0-10.0)
[2022-10-17] MEDS: METOPROLOL TARTRATE 25 MG TABLET (FP) GT SCH ×2 (10:08→21:31)
[2022-10-17] MEDS: QUEtiapine FUMARATE 25 MG TABLET GT SCH (10:08)
[2022-10-17] MEDS: AMIODARONE HCL 200 MG TABLET NGT SCH ×2 (10:08→21:30)
[2022-10-17] MEDS: MIDODRINE HCL 5 MG TABLET GT SCH ×3 (10:08→18:12)
[2022-10-17] MEDS: AMINO ACIDS/PROTEIN HYDROLYS 30 ML LIQUID.PKT GT SCH ×2 (10:08→18:12)
[2022-10-17] MEDS: ASCORBIC ACID 500 MG/5 ML UNIT DOSE CUP GT SCH (10:09)
[2022-10-17 12:53] LABS: HEMATOCRIT 27.8 % (35.4-49); HEMOGLOBIN 9.2 GM/dL (11.7-16.9); MCH 29.3 pg (25.7-33.7); MCHC 33.2 g/dl (32.0-35.9); MEAN CELL VOLUME 88.2 fl (80-96); MEAN PLT VOLUME 7.3 fl (7.5-11.1); PLATELET COUNT 441 10^3/uL (134-434); RBC 3.15 M/mm3 (4.00-5.60); RDW 15.9 % (11.9-15.9); WHITE BLOOD COUNT 17.8 K/mm3 (4.0-10.0)
[2022-10-17 13:12] LABS: CHLORIDE 106 mmol/L (98-107); SODIUM 140 mmol/L (136-145)
[2022-10-17 13:13] LABS: CALCIUM 7.7 mg/dL (8.5-10.1)
[2022-10-17 13:14] LABS: CO2 31 mmol/L (21-32); GLUCOSE,RANDOM 120 mg/dL (74-106); MAGNESIUM 1.7 mg/dL (1.8-2.4)
[2022-10-17 13:17] LABS: CREATININE 0.3 mg/dL (0.55-1.3)
[2022-10-17] MEDS ORDERED: MAGNESIUM 1GM/D5W - 1 GM/100 ML IVPB IVPB ONE (13:25)
[2022-10-17 13:27] LABS: ANION GAP 3 MMOL/L (8-16); POTASSIUM 2.9 mmol/L (3.5-5.1)
[2022-10-17] MEDS: AMINO ACIDS 4.25%/D5W 1,000 ML IV SCH (14:08)
[2022-10-17] MEDS: KCL 10 MEQ IVPB 10 MEQ/100 ML INFUS.BAG IVPB SCH ×3 (16:00→18:06)
[2022-10-17] MEDS: POTASSIUM CHLORIDE 20 MEQ in AMINO ACIDS 4.25%/D5W 1,000 ML IV SCH (19:32)
[2022-10-17] MEDS ORDERED: QUEtiapine FUMARATE 25 MG TABLET ONE ×2 (20:53→21:35)
[2022-10-17] MEDS: QUEtiapine FUMARATE 50 MG TABLET GT SCH (21:47)
[2022-10-18 03:25] LABS: POTASSIUM 3.2 mmol/L (3.5-5.1)
[2022-10-18 03:28] LABS: ALBUMIN 1.5 g/dl (3.4-5.0); CALCIUM 7.5 mg/dL (8.5-10.1); MAGNESIUM 1.6 mg/dL (1.8-2.4)
[2022-10-18 03:31] LABS: CREATININE 0.4 mg/dL (0.55-1.3)
[2022-10-18 03:32] LABS: PHOSPHOROUS 2.2 mg/dL (2.5-4.9)
[2022-10-18 03:33] LABS: BILIRUBIN,TOTAL 1.4 mg/dL (0.2-1); TOT PROT 5.5 g/dl (6.4-8.2)
[2022-10-18] MEDS: PIPERACILLIN/TAZOB 3.375 GM 3.375 GM in DEXTROSE 5%-WATER - 50 ML IVPB SCH ×3 (05:05→17:48)
[2022-10-18] MEDS: ACETAMINOPHEN 650 MG/20.3 ML ORAL SOLUTION (CUPS) GT PRN (06:40)
[2022-10-18 10:57] LABS: HEMATOCRIT 26.2 % (35.4-49); HEMOGLOBIN 8.8 GM/dL (11.7-16.9); MCH 29.5 pg (25.7-33.7); MCHC 33.4 g/dl (32.0-35.9); MEAN CELL VOLUME 88.2 fl (80-96); MEAN PLT VOLUME 7.5 fl (7.5-11.1); PLATELET COUNT 442 10^3/uL (134-434); RBC 2.97 M/mm3 (4.00-5.60); RDW 15.9 % (11.9-15.9); WHITE BLOOD COUNT 23.2 K/mm3 (4.0-10.0)
[2022-10-18] MEDS: AMINO ACIDS/PROTEIN HYDROLYS 30 ML LIQUID.PKT GT SCH ×2 (11:11→16:34)
[2022-10-18] MEDS: MIDODRINE HCL 5 MG TABLET GT SCH ×3 (11:12→17:48)
[2022-10-18] MEDS: QUEtiapine FUMARATE 25 MG TABLET GT SCH (11:12)
[2022-10-18] MEDS: METOPROLOL TARTRATE 25 MG TABLET (FP) GT SCH ×2 (11:12→21:04)
[2022-10-18] MEDS: AMIODARONE HCL 200 MG TABLET NGT SCH ×2 (11:12→21:05)
[2022-10-18] MEDS: ASCORBIC ACID 500 MG/5 ML UNIT DOSE CUP GT SCH (11:13)
[2022-10-18] MEDS: PANTOPRAZOLE SODIUM 80 MG in SODIUM CHLORIDE 100 ML IVPB SCH ×2 (11:58→12:03)
[2022-10-18] MEDS: POTASSIUM CHLORIDE 20 MEQ in AMINO ACIDS 4.25%/D5W 1,000 ML IV SCH (15:26)
[2022-10-18] MEDS: NAPH,MB-DB/K PH,MBDB POWDER PACKET GT SCH (16:34)
[2022-10-18] MEDS ORDERED: VANCOMYCIN 1,000 MG in DEXTROSE 5%-WATER - 250 ML IVPB SCH (17:00)
[2022-10-18] MEDS ORDERED: QUEtiapine FUMARATE 25 MG TABLET ONE (20:12)
[2022-10-18] MEDS: QUEtiapine FUMARATE 50 MG TABLET GT SCH (21:05)
[2022-10-18] MEDS: MAGNESIUM OXIDE 400 MG TABLET (FP) GT SCH (21:05)
[2022-10-19] MEDS: PIPERACILLIN/TAZOB 3.375 GM 3.375 GM in DEXTROSE 5%-WATER - 50 ML IVPB SCH ×3 (01:36→18:02)
[2022-10-19] MEDS: AMINO ACIDS/PROTEIN HYDROLYS 30 ML LIQUID.PKT GT SCH ×2 (08:08→18:00)
[2022-10-19 09:35] LABS: BASO % 0.6 % (0-2.0); EOS % 4.1 % (0-4.5); HEMATOCRIT 25.9 % (35.4-49); HEMOGLOBIN 8.5 GM/dL (11.7-16.9); LYMPH % 26.2 % (8-40); MCHC 32.9 g/dl (32.0-35.9); MEAN CELL VOLUME 88.1 fl (80-96); MEAN PLT VOLUME 7.2 fl (7.5-11.1); NEUT % 61.1 % (42.8-82.8); PLATELET COUNT 442 10^3/uL (134-434); RBC 2.94 M/mm3 (4.00-5.60); WHITE BLOOD COUNT 15.7 K/mm3 (4.0-10.0)
[2022-10-19 09:53] LABS: POTASSIUM 3.1 mmol/L (3.5-5.1)
[2022-10-19 09:55] LABS: ALBUMIN 1.3 g/dl (3.4-5.0); BLOOD UREA NITROGEN 19.5 mg/dL (7-18); CALCIUM 8.1 mg/dL (8.5-10.1)
[2022-10-19] MEDS: MAGNESIUM OXIDE 400 MG TABLET (FP) GT SCH ×2 (09:56→21:59)
[2022-10-19] MEDS: AMIODARONE HCL 200 MG TABLET NGT SCH ×2 (09:57→21:59)
[2022-10-19] MEDS: NAPH,MB-DB/K PH,MBDB POWDER PACKET GT SCH (09:57)
[2022-10-19] MEDS: QUEtiapine FUMARATE 25 MG TABLET GT SCH (09:57)
[2022-10-19 09:58] LABS: CREATININE 0.2 mg/dL (0.55-1.3)
[2022-10-19 10:00] LABS: BILIRUBIN,TOTAL 0.8 mg/dL (0.2-1); TOT PROT 4.9 g/dl (6.4-8.2)
[2022-10-19] MEDS: MIDODRINE HCL 5 MG TABLET GT SCH ×3 (10:00→18:01)
[2022-10-19] MEDS: ASCORBIC ACID 500 MG/5 ML UNIT DOSE CUP GT SCH (10:03)
[2022-10-19] MEDS: METOPROLOL TARTRATE 25 MG TABLET (FP) GT SCH (11:33)
[2022-10-19] MEDS ORDERED: POTASSIUM CHLORIDE ORAL LIQUID 20 MEQ/15 ML PEG ONE ×2 (12:00→13:00)
[2022-10-19] MEDS: POTASSIUM CHLORIDE 20 MEQ in AMINO ACIDS 4.25%/D5W 1,000 ML IV SCH ×2 (15:17→15:20)
[2022-10-19] MEDS ORDERED: QUEtiapine FUMARATE 25 MG TABLET ONE (21:54)
[2022-10-19] MEDS: ACETAMINOPHEN 650 MG/20.3 ML ORAL SOLUTION (CUPS) GT PRN (21:57)
[2022-10-19] MEDS: QUEtiapine FUMARATE 50 MG TABLET GT SCH (21:59)
[2022-10-20] MEDS: METOPROLOL TARTRATE 25 MG TABLET (FP) GT SCH ×3 (01:21→22:05)
[2022-10-20] MEDS: PIPERACILLIN/TAZOB 3.375 GM 3.375 GM in DEXTROSE 5%-WATER - 50 ML IVPB SCH ×3 (02:08→17:42)
[2022-10-20] MEDS: AMINO ACIDS/PROTEIN HYDROLYS 30 ML LIQUID.PKT GT SCH ×2 (09:28→17:41)
[2022-10-20] MEDS: NAPH,MB-DB/K PH,MBDB POWDER PACKET GT SCH (09:29)
[2022-10-20] MEDS: QUEtiapine FUMARATE 25 MG TABLET GT SCH (09:29)
[2022-10-20] MEDS: MIDODRINE HCL 5 MG TABLET GT SCH ×3 (09:29→17:41)
[2022-10-20] MEDS: ASCORBIC ACID 500 MG/5 ML UNIT DOSE CUP GT SCH (09:30)
[2022-10-20] MEDS: AMIODARONE HCL 200 MG TABLET NGT SCH ×2 (09:31→22:05)
[2022-10-20] MEDS: MAGNESIUM OXIDE 400 MG TABLET (FP) GT SCH ×2 (09:32→22:05)
[2022-10-20] MEDS: POTASSIUM CHLORIDE 20 MEQ in AMINO ACIDS 4.25%/D5W 1,000 ML IV SCH (15:29)
[2022-10-20] MEDS: QUEtiapine FUMARATE 50 MG TABLET GT SCH (22:05)
[2022-10-20] MEDS ORDERED: QUEtiapine FUMARATE 25 MG TABLET ONE (22:05)
[2022-10-21] MEDS: PIPERACILLIN/TAZOB 3.375 GM 3.375 GM in DEXTROSE 5%-WATER - 50 ML IVPB SCH ×3 (01:27→17:06)
[2022-10-21] MEDS ORDERED: FUROSEMIDE 40 MG/4 ML INJECTABLE VIAL IVPUSH ONE (08:25)
[2022-10-21] MEDS ORDERED: MAGNESIUM SULF 50% (8.12 MEQ/2 ML-1 GM VIAL) IVPB ONE (08:31)
[2022-10-21] MEDS ORDERED: POTASSIUM CHLORIDE ORAL LIQUID 20 MEQ/15 ML PO ONE (08:34)
[2022-10-21] MEDS ORDERED: MAGNESIUM SULF 50% (8.12 MEQ/2 ML-1 GM VIAL) ONE (08:34)
[2022-10-21 08:37] LABS: HEMATOCRIT 28.6 % (35.4-49); HEMOGLOBIN 9.8 GM/dL (11.7-16.9); MCHC 34.2 g/dl (32.0-35.9); MEAN CELL VOLUME 87.5 fl (80-96); MEAN PLT VOLUME 7.3 fl (7.5-11.1); PLATELET COUNT 589 10^3/uL (134-434); RBC 3.26 M/mm3 (4.00-5.60); RDW 15.9 % (11.9-15.9); WHITE BLOOD COUNT 24.3 K/mm3 (4.0-10.0)
[2022-10-21] MEDS ORDERED: KCL 10 MEQ IVPB 10 MEQ/100 ML INFUS.BAG IVPB SCH (08:45)
[2022-10-21 08:59] LABS: POTASSIUM 3.7 mmol/L (3.5-5.1)
[2022-10-21] MEDS ORDERED: ENOXAPARIN NA (PORCINE) 80 MG/0.8 ML DISP.SYRIN SQ ONE (08:59)
[2022-10-21 09:15] LABS: ANISOCYTOSIS 0; HELMET CELLS 0; HOWELL-JOLLY BODIES 0; MACROCYTOSIS 0; OVALOCYTE 0; ROULEAU 0; SICKELED CELLS 0; TARGET CELLS 0; TEAR DROP CELLS 0; TOXIC GRANULATION 0
[2022-10-21 09:17] LABS: CALCIUM 7.9 mg/dL (8.5-10.1); MAGNESIUM 1.6 mg/dL (1.8-2.4)
[2022-10-21 09:21] LABS: BLOOD UREA NITROGEN 15.7 mg/dL (7-18)
[2022-10-21 09:22] LABS: BILIRUBIN,TOTAL 0.8 mg/dL (0.2-1)
[2022-10-21 09:23] LABS: CREATININE 0.2 mg/dL (0.55-1.3)
[2022-10-21 09:26] LABS: ALBUMIN 1.6 g/dl (3.4-5.0)
[2022-10-21] MEDS ORDERED: PANTOPRAZOLE SODIUM 40 MG VIAL IVPUSH SCH (10:00)
[2022-10-21] MEDS: MIDODRINE HCL 5 MG TABLET GT SCH ×3 (11:29→17:05)
[2022-10-21] MEDS: NAPH,MB-DB/K PH,MBDB POWDER PACKET GT SCH (11:29)
[2022-10-21] MEDS: AMINO ACIDS/PROTEIN HYDROLYS 30 ML LIQUID.PKT GT SCH ×2 (11:29→17:05)
[2022-10-21] MEDS: QUEtiapine FUMARATE 25 MG TABLET GT SCH (11:30)
[2022-10-21] MEDS: MAGNESIUM OXIDE 400 MG TABLET (FP) GT SCH ×2 (11:30→21:14)
[2022-10-21] MEDS: METOPROLOL TARTRATE 25 MG TABLET (FP) GT SCH ×2 (11:30→21:12)
[2022-10-21] MEDS: AMIODARONE HCL 200 MG TABLET NGT SCH ×2 (11:31→21:12)
[2022-10-21] MEDS: MUPIROCIN 2% TOPICAL OINTMENT FOR DECOLONIZATION NS SCH ×2 (11:36→21:14)
[2022-10-21] MEDS ORDERED: POTASSIUM CHLORIDE 20 MEQ in AMINO ACIDS 4.25%/D5W 1,000 ML IV SCH (14:30)
[2022-10-21] MEDS: CHLORHEXIDINE GLUCONATE 4% CLEANSER FOR DECOLONIZATION TP SCH (21:09)
[2022-10-21] MEDS: PANTOPRAZOLE SODIUM 40 MG VIAL IVPUSH SCH (21:12)
[2022-10-21] MEDS: QUEtiapine FUMARATE 50 MG TABLET GT SCH (21:12)
[2022-10-22] MEDS: PIPERACILLIN/TAZOB 3.375 GM 3.375 GM in DEXTROSE 5%-WATER - 50 ML IVPB SCH ×3 (01:58→17:29)
[2022-10-22] MEDS: AMINO ACIDS/PROTEIN HYDROLYS 30 ML LIQUID.PKT GT SCH ×2 (07:37→17:29)
[2022-10-22] MEDS: ASCORBIC ACID 500 MG/5 ML UNIT DOSE CUP GT SCH ×2 (07:40→09:13)
[2022-10-22 09:07] LABS: HEMATOCRIT 25.3 % (35.4-49); HEMOGLOBIN 8.6 GM/dL (11.7-16.9); MCH 29.8 pg (25.7-33.7); MEAN CELL VOLUME 87.8 fl (80-96); MEAN PLT VOLUME 7.2 fl (7.5-11.1); PLATELET COUNT 395 10^3/uL (134-434); RBC 2.88 M/mm3 (4.00-5.60); WHITE BLOOD COUNT 11.3 K/mm3 (4.0-10.0)
[2022-10-22] MEDS: AMIODARONE HCL 200 MG TABLET NGT SCH ×2 (09:11→21:43)
[2022-10-22] MEDS: MIDODRINE HCL 5 MG TABLET GT SCH ×3 (09:12→17:29)
[2022-10-22] MEDS: NAPH,MB-DB/K PH,MBDB POWDER PACKET GT SCH (09:12)
[2022-10-22] MEDS: QUEtiapine FUMARATE 25 MG TABLET GT SCH (09:13)
[2022-10-22] MEDS: METOPROLOL TARTRATE 25 MG TABLET (FP) GT SCH ×2 (09:13→21:43)
[2022-10-22] MEDS: MAGNESIUM OXIDE 400 MG TABLET (FP) GT SCH (09:13)
[2022-10-22] MEDS: ENOXAPARIN NA (PORCINE) 40 MG/0.4 ML DISP.SYRIN SQ SCH (09:13)
[2022-10-22] MEDS: PANTOPRAZOLE SODIUM 40 MG VIAL IVPUSH SCH ×2 (09:13→21:43)
[2022-10-22] MEDS: MUPIROCIN 2% TOPICAL OINTMENT FOR DECOLONIZATION NS SCH ×2 (09:14→21:44)
[2022-10-22 09:32] LABS: POTASSIUM 3.7 mmol/L (3.5-5.1)
[2022-10-22 09:34] LABS: CALCIUM 7.8 mg/dL (8.5-10.1)
[2022-10-22 09:35] LABS: BLOOD UREA NITROGEN 17.8 mg/dL (7-18); MAGNESIUM 1.9 mg/dL (1.8-2.4)
[2022-10-22 09:38] LABS: CREATININE 0.2 mg/dL (0.55-1.3); PHOSPHOROUS 1.6 mg/dL (2.5-4.9)
[2022-10-22] MEDS ORDERED: MAGNESIUM SULF 50% (8.12 MEQ/2 ML-1 GM VIAL) IVPB ONE (12:45)
[2022-10-22] MEDS: TORSEMIDE 20 MG TABLET (FP) PO SCH (13:21)
[2022-10-22] MEDS ORDERED: POTASSIUM PHOSPHATE 30 MM in SODIUM CHLORIDE 250 ML IVPB ONE (13:30)
[2022-10-22] MEDS: QUEtiapine FUMARATE 50 MG TABLET GT SCH (21:43)
[2022-10-22] MEDS: CHLORHEXIDINE GLUCONATE 4% CLEANSER FOR DECOLONIZATION TP SCH (21:44)
[2022-10-23] MEDS: PIPERACILLIN/TAZOB 3.375 GM 3.375 GM in DEXTROSE 5%-WATER - 50 ML IVPB SCH ×3 (02:08→17:14)
[2022-10-23] MEDS: TORSEMIDE 20 MG TABLET (FP) PO SCH ×2 (06:25→13:44)
[2022-10-23 08:15] LABS: CALCIUM 7.8 mg/dL (8.5-10.1); MAGNESIUM 1.9 mg/dL (1.8-2.4)
[2022-10-23 08:16] LABS: BLOOD UREA NITROGEN 16.9 mg/dL (7-18)
[2022-10-23 08:19] LABS: CREATININE 0.3 mg/dL (0.55-1.3); PHOSPHOROUS 2.2 mg/dL (2.5-4.9)
[2022-10-23 08:21] LABS: HEMOGLOBIN 8.9 GM/dL (11.7-16.9); MCH 29.9 pg (25.7-33.7); MCHC 34.1 g/dl (32.0-35.9); MEAN CELL VOLUME 87.7 fl (80-96); MEAN PLT VOLUME 7.4 fl (7.5-11.1); PLATELET COUNT 431 10^3/uL (134-434); RBC 2.97 M/mm3 (4.00-5.60); RDW 16.1 % (11.9-15.9); WHITE BLOOD COUNT 13.1 K/mm3 (4.0-10.0)
[2022-10-23] MEDS: AMIODARONE HCL 200 MG TABLET NGT SCH ×2 (09:29→21:17)
[2022-10-23] MEDS: ENOXAPARIN NA (PORCINE) 40 MG/0.4 ML DISP.SYRIN SQ SCH (09:29)
[2022-10-23] MEDS: METOPROLOL TARTRATE 25 MG TABLET (FP) GT SCH ×2 (09:29→21:17)
[2022-10-23] MEDS: NAPH,MB-DB/K PH,MBDB POWDER PACKET GT SCH ×2 (09:29→18:07)
[2022-10-23] MEDS: PANTOPRAZOLE SODIUM 40 MG VIAL IVPUSH SCH ×2 (09:29→21:16)
[2022-10-23] MEDS: AMINO ACIDS/PROTEIN HYDROLYS 30 ML LIQUID.PKT GT SCH ×2 (09:29→17:13)
[2022-10-23] MEDS: MIDODRINE HCL 5 MG TABLET GT SCH ×3 (09:29→17:13)
[2022-10-23] MEDS: MUPIROCIN 2% TOPICAL OINTMENT FOR DECOLONIZATION NS SCH ×2 (09:30→21:18)
[2022-10-23] MEDS: ASCORBIC ACID 500 MG/5 ML UNIT DOSE CUP GT SCH (09:30)
[2022-10-23] MEDS: QUEtiapine FUMARATE 25 MG TABLET GT SCH (09:31)
[2022-10-23] MEDS ORDERED: NAPH,MB-DB/K PH,MBDB POWDER PACKET GT SCH (13:15)
[2022-10-23] MEDS: COLLAGENASE CLOSTRIDIUM HIST. 30 GRAMS TUBE TP SCH (13:44)
[2022-10-23] MEDS: QUEtiapine FUMARATE 50 MG TABLET GT SCH (21:16)
[2022-10-23] MEDS: CHLORHEXIDINE GLUCONATE 4% CLEANSER FOR DECOLONIZATION TP SCH (21:17)
[2022-10-24] MEDS: PIPERACILLIN/TAZOB 3.375 GM 3.375 GM in DEXTROSE 5%-WATER - 50 ML IVPB SCH ×3 (01:34→17:24)
[2022-10-24] MEDS: TORSEMIDE 20 MG TABLET (FP) PO SCH ×2 (06:48→14:55)
[2022-10-24] MEDS: NAPH,MB-DB/K PH,MBDB POWDER PACKET GT SCH ×2 (10:39→21:36)
[2022-10-24] MEDS: AMINO ACIDS/PROTEIN HYDROLYS 30 ML LIQUID.PKT GT SCH ×2 (10:39→17:24)
[2022-10-24] MEDS: ENOXAPARIN NA (PORCINE) 40 MG/0.4 ML DISP.SYRIN SQ SCH (10:39)
[2022-10-24] MEDS: PANTOPRAZOLE SODIUM 40 MG VIAL IVPUSH SCH ×2 (10:40→21:36)
[2022-10-24] MEDS: AMIODARONE HCL 200 MG TABLET NGT SCH ×2 (10:40→21:35)
[2022-10-24] MEDS: ASCORBIC ACID 500 MG/5 ML UNIT DOSE CUP GT SCH (10:40)
[2022-10-24] MEDS: MIDODRINE HCL 5 MG TABLET GT SCH ×3 (10:40→17:45)
[2022-10-24] MEDS: METOPROLOL TARTRATE 25 MG TABLET (FP) GT SCH ×2 (10:40→21:35)
[2022-10-24] MEDS: ACETAMINOPHEN 650 MG/20.3 ML ORAL SOLUTION (CUPS) GT PRN ×2 (10:40→15:23)
[2022-10-24] MEDS: MUPIROCIN 2% TOPICAL OINTMENT FOR DECOLONIZATION NS SCH ×2 (10:41→21:41)
[2022-10-24] MEDS: COLLAGENASE CLOSTRIDIUM HIST. 30 GRAMS TUBE TP SCH (10:41)
[2022-10-24] MEDS: QUEtiapine FUMARATE 25 MG TABLET GT SCH (10:44)
[2022-10-24 11:02] LABS: HEMATOCRIT 27.2 % (35.4-49); HEMOGLOBIN 9.2 GM/dL (11.7-16.9); MCH 29.6 pg (25.7-33.7); MCHC 33.8 g/dl (32.0-35.9); MEAN CELL VOLUME 87.4 fl (80-96); MEAN PLT VOLUME 7.6 fl (7.5-11.1); PLATELET COUNT 502 10^3/uL (134-434); RBC 3.12 M/mm3 (4.00-5.60); WHITE BLOOD COUNT 15.9 K/mm3 (4.0-10.0)
[2022-10-24 11:20] LABS: POTASSIUM 3.9 mmol/L (3.5-5.1)
[2022-10-24 11:22] LABS: BLOOD UREA NITROGEN 14.6 mg/dL (7-18); MAGNESIUM 1.7 mg/dL (1.8-2.4)
[2022-10-24 11:25] LABS: CREATININE 0.4 mg/dL (0.55-1.3); PHOSPHOROUS 2.7 mg/dL (2.5-4.9)
[2022-10-24] MEDS: QUEtiapine FUMARATE 50 MG TABLET GT SCH (21:35)
[2022-10-24] MEDS: CHLORHEXIDINE GLUCONATE 4% CLEANSER FOR DECOLONIZATION TP SCH (21:36)
[2022-10-25] MEDS: PIPERACILLIN/TAZOB 3.375 GM 3.375 GM in DEXTROSE 5%-WATER - 50 ML IVPB SCH ×2 (01:09→10:09)
[2022-10-25] MEDS: TORSEMIDE 20 MG TABLET (FP) PO SCH ×2 (05:50→14:12)
[2022-10-25 07:04] LABS: HEMATOCRIT 25.6 % (35.4-49); HEMOGLOBIN 8.9 GM/dL (11.7-16.9); MCH 30.2 pg (25.7-33.7); MCHC 34.7 g/dl (32.0-35.9); MEAN CELL VOLUME 87.1 fl (80-96); MEAN PLT VOLUME 7.7 fl (7.5-11.1); PLATELET COUNT 461 10^3/uL (134-434); RBC 2.93 M/mm3 (4.00-5.60)
[2022-10-25 07:24] LABS: POTASSIUM 4.1 mmol/L (3.5-5.1)
[2022-10-25 07:26] LABS: CALCIUM 8.1 mg/dL (8.5-10.1)
[2022-10-25 07:27] LABS: MAGNESIUM 1.9 mg/dL (1.8-2.4)
[2022-10-25 07:30] LABS: CREATININE 0.3 mg/dL (0.55-1.3); PHOSPHOROUS 2.7 mg/dL (2.5-4.9)
[2022-10-25] MEDS: AMINO ACIDS/PROTEIN HYDROLYS 30 ML LIQUID.PKT GT SCH ×2 (08:10→17:20)
[2022-10-25] MEDS: PANTOPRAZOLE SODIUM 40 MG VIAL IVPUSH SCH ×2 (10:08→21:29)
[2022-10-25] MEDS: ENOXAPARIN NA (PORCINE) 40 MG/0.4 ML DISP.SYRIN SQ SCH (10:08)
[2022-10-25] MEDS: NAPH,MB-DB/K PH,MBDB POWDER PACKET GT SCH ×2 (10:09→21:29)
[2022-10-25] MEDS: MIDODRINE HCL 5 MG TABLET GT SCH (10:09)
[2022-10-25] MEDS: AMIODARONE HCL 200 MG TABLET NGT SCH ×2 (10:09→21:29)
[2022-10-25] MEDS: METOPROLOL TARTRATE 25 MG TABLET (FP) GT SCH ×2 (10:09→21:29)
[2022-10-25] MEDS: QUEtiapine FUMARATE 25 MG TABLET GT SCH (10:09)
[2022-10-25] MEDS: MUPIROCIN 2% TOPICAL OINTMENT FOR DECOLONIZATION NS SCH (10:14)
[2022-10-25] MEDS: COLLAGENASE CLOSTRIDIUM HIST. 30 GRAMS TUBE TP SCH (10:14)
[2022-10-25] MEDS: ASCORBIC ACID 500 MG/5 ML UNIT DOSE CUP GT SCH (10:16)
[2022-10-25] MEDS: MIDODRINE HCL 2.5 MG TABLET GT SCH ×2 (14:12→17:20)
[2022-10-25] MEDS: AMPICILLIN NA/SULBACTAM NA 1.5 GM in SODIUM CHLORIDE 100 ML IVPB SCH ×2 (14:12→21:29)
[2022-10-25] MEDS ORDERED: PIPERACILLIN/TAZOB 3.375 GM 3.375 GM in DEXTROSE 5%-WATER - 50 ML IVPB SCH (18:00)
[2022-10-25] MEDS: QUEtiapine FUMARATE 50 MG TABLET GT SCH (21:29)
[2022-10-25] MEDS: CHLORHEXIDINE GLUCONATE 4% CLEANSER FOR DECOLONIZATION TP SCH (21:30)
[2022-10-25] MEDS ORDERED: MUPIROCIN 2% TOPICAL OINTMENT FOR DECOLONIZATION NS SCH (22:00)
[2022-10-26] MEDS: AMPICILLIN NA/SULBACTAM NA 1.5 GM in SODIUM CHLORIDE 100 ML IVPB SCH ×4 (02:12→21:13)
[2022-10-26] MEDS: TORSEMIDE 20 MG TABLET (FP) PO SCH ×2 (05:19→13:14)
[2022-10-26 07:33] LABS: HEMATOCRIT 28.9 % (35.4-49); HEMOGLOBIN 9.7 GM/dL (11.7-16.9); MCH 29.4 pg (25.7-33.7); MCHC 33.7 g/dl (32.0-35.9); MEAN CELL VOLUME 87.2 fl (80-96); MEAN PLT VOLUME 7.6 fl (7.5-11.1); PLATELET COUNT 516 10^3/uL (134-434); RBC 3.31 M/mm3 (4.00-5.60); RDW 15.9 % (11.9-15.9); WHITE BLOOD COUNT 17.4 K/mm3 (4.0-10.0)
[2022-10-26 08:12] LABS: POTASSIUM 4.1 mmol/L (3.5-5.1)
[2022-10-26 08:18] LABS: BLOOD UREA NITROGEN 18.5 mg/dL (7-18); CALCIUM 8.1 mg/dL (8.5-10.1)
[2022-10-26 08:19] LABS: MAGNESIUM 1.8 mg/dL (1.8-2.4)
[2022-10-26 08:21] LABS: CREATININE 0.4 mg/dL (0.55-1.3); PHOSPHOROUS 3.3 mg/dL (2.5-4.9)
[2022-10-26] MEDS: PANTOPRAZOLE SODIUM 40 MG VIAL IVPUSH SCH ×2 (09:37→21:13)
[2022-10-26] MEDS: ENOXAPARIN NA (PORCINE) 40 MG/0.4 ML DISP.SYRIN SQ SCH (09:37)
[2022-10-26] MEDS: AMINO ACIDS/PROTEIN HYDROLYS 30 ML LIQUID.PKT GT SCH ×2 (09:37→17:01)
[2022-10-26] MEDS: QUEtiapine FUMARATE 25 MG TABLET GT SCH (09:38)
[2022-10-26] MEDS: METOPROLOL TARTRATE 25 MG TABLET (FP) GT SCH ×2 (09:38→21:12)
[2022-10-26] MEDS: NAPH,MB-DB/K PH,MBDB POWDER PACKET GT SCH ×2 (09:38→21:12)
[2022-10-26] MEDS: MIDODRINE HCL 2.5 MG TABLET GT SCH ×3 (09:38→17:01)
[2022-10-26] MEDS: ASCORBIC ACID 500 MG/5 ML UNIT DOSE CUP GT SCH (09:38)
[2022-10-26] MEDS: AMIODARONE HCL 200 MG TABLET NGT SCH ×2 (09:38→21:12)
[2022-10-26] MEDS: COLLAGENASE CLOSTRIDIUM HIST. 30 GRAMS TUBE TP SCH (11:26)
[2022-10-26] MEDS: CHLORHEXIDINE GLUCONATE 4% CLEANSER FOR DECOLONIZATION TP SCH (21:13)
[2022-10-26] MEDS: QUEtiapine FUMARATE 50 MG TABLET GT SCH (21:13)
[2022-10-27] MEDS: AMPICILLIN NA/SULBACTAM NA 1.5 GM in SODIUM CHLORIDE 100 ML IVPB SCH ×4 (02:00→21:18)
[2022-10-27] MEDS: TORSEMIDE 20 MG TABLET (FP) PO SCH ×2 (06:08→13:26)
[2022-10-27 07:13] LABS: HEMATOCRIT 27.5 % (35.4-49); HEMOGLOBIN 9.3 GM/dL (11.7-16.9); MCH 29.6 pg (25.7-33.7); MCHC 33.9 g/dl (32.0-35.9); MEAN CELL VOLUME 87.6 fl (80-96); MEAN PLT VOLUME 7.8 fl (7.5-11.1); PLATELET COUNT 415 10^3/uL (134-434); RBC 3.14 M/mm3 (4.00-5.60)
[2022-10-27 07:31] LABS: CALCIUM 8.2 mg/dL (8.5-10.1); MAGNESIUM 1.9 mg/dL (1.8-2.4)
[2022-10-27 07:32] LABS: BLOOD UREA NITROGEN 21.1 mg/dL (7-18)
[2022-10-27 07:35] LABS: CREATININE 0.3 mg/dL (0.55-1.3)
[2022-10-27] MEDS: ACETAMINOPHEN 650 MG/20.3 ML ORAL SOLUTION (CUPS) GT PRN (09:52)
[2022-10-27] MEDS: QUEtiapine FUMARATE 25 MG TABLET GT SCH (09:52)
[2022-10-27] MEDS: AMINO ACIDS/PROTEIN HYDROLYS 30 ML LIQUID.PKT GT SCH ×2 (09:53→17:21)
[2022-10-27] MEDS: METOPROLOL TARTRATE 25 MG TABLET (FP) GT SCH ×2 (09:53→21:19)
[2022-10-27] MEDS: NAPH,MB-DB/K PH,MBDB POWDER PACKET GT SCH ×2 (09:53→21:19)
[2022-10-27] MEDS: AMIODARONE HCL 200 MG TABLET NGT SCH ×2 (09:53→21:19)
[2022-10-27] MEDS: MIDODRINE HCL 2.5 MG TABLET GT SCH ×3 (09:53→17:21)
[2022-10-27] MEDS: ASCORBIC ACID 500 MG/5 ML UNIT DOSE CUP GT SCH (09:53)
[2022-10-27] MEDS: ENOXAPARIN NA (PORCINE) 40 MG/0.4 ML DISP.SYRIN SQ SCH (09:53)
[2022-10-27] MEDS: COLLAGENASE CLOSTRIDIUM HIST. 30 GRAMS TUBE TP SCH (09:53)
[2022-10-27] MEDS: PANTOPRAZOLE SODIUM 40 MG VIAL IVPUSH SCH ×2 (10:28→21:19)
[2022-10-27] MEDS: CHLORHEXIDINE GLUCONATE 4% CLEANSER FOR DECOLONIZATION TP SCH (21:19)
[2022-10-27] MEDS: QUEtiapine FUMARATE 50 MG TABLET GT SCH (21:21)
[2022-10-28] MEDS: AMPICILLIN NA/SULBACTAM NA 1.5 GM in SODIUM CHLORIDE 100 ML IVPB SCH ×4 (03:47→21:54)
[2022-10-28] MEDS: TORSEMIDE 20 MG TABLET (FP) PO SCH ×2 (05:41→16:25)
[2022-10-28 07:12] LABS: HEMATOCRIT 29.4 % (35.4-49); HEMOGLOBIN 9.8 GM/dL (11.7-16.9); MCH 29.1 pg (25.7-33.7); MCHC 33.2 g/dl (32.0-35.9); MEAN CELL VOLUME 87.5 fl (80-96); MEAN PLT VOLUME 7.8 fl (7.5-11.1); PLATELET COUNT 515 10^3/uL (134-434); RBC 3.36 M/mm3 (4.00-5.60); RDW 16.1 % (11.9-15.9); WHITE BLOOD COUNT 17.1 K/mm3 (4.0-10.0)
[2022-10-28 07:17] LABS: POTASSIUM 4.3 mmol/L (3.5-5.1)
[2022-10-28 07:20] LABS: BLOOD UREA NITROGEN 24.8 mg/dL (7-18); CALCIUM 8.4 mg/dL (8.5-10.1); MAGNESIUM 2.1 mg/dL (1.8-2.4)
[2022-10-28 07:23] LABS: PHOSPHOROUS 3.3 mg/dL (2.5-4.9)
[2022-10-28 07:24] LABS: CREATININE 0.4 mg/dL (0.55-1.3)
[2022-10-28] MEDS: AMINO ACIDS/PROTEIN HYDROLYS 30 ML LIQUID.PKT GT SCH ×2 (09:40→17:28)
[2022-10-28] MEDS: PANTOPRAZOLE SODIUM 40 MG VIAL IVPUSH SCH ×2 (09:40→21:56)
[2022-10-28] MEDS: ASCORBIC ACID 500 MG/5 ML UNIT DOSE CUP GT SCH (09:41)
[2022-10-28] MEDS: NAPH,MB-DB/K PH,MBDB POWDER PACKET GT SCH ×2 (09:41→21:56)
[2022-10-28] MEDS: ENOXAPARIN NA (PORCINE) 40 MG/0.4 ML DISP.SYRIN SQ SCH (09:41)
[2022-10-28] MEDS: AMIODARONE HCL 200 MG TABLET NGT SCH ×2 (09:41→21:55)
[2022-10-28] MEDS: METOPROLOL TARTRATE 25 MG TABLET (FP) GT SCH ×2 (09:41→21:55)
[2022-10-28] MEDS: MIDODRINE HCL 2.5 MG TABLET GT SCH ×3 (09:41→17:28)
[2022-10-28] MEDS: QUEtiapine FUMARATE 25 MG TABLET GT SCH (09:41)
[2022-10-28] MEDS: COLLAGENASE CLOSTRIDIUM HIST. 30 GRAMS TUBE TP SCH (16:25)
[2022-10-28] MEDS: CHLORHEXIDINE GLUCONATE 4% CLEANSER FOR DECOLONIZATION TP SCH (21:55)
[2022-10-28] MEDS: QUEtiapine FUMARATE 50 MG TABLET GT SCH (21:56)
[2022-10-29] MEDS: AMPICILLIN NA/SULBACTAM NA 1.5 GM in SODIUM CHLORIDE 100 ML IVPB SCH ×4 (02:20→21:48)
[2022-10-29] MEDS: TORSEMIDE 20 MG TABLET (FP) PO SCH ×2 (05:42→17:03)
[2022-10-29] MEDS: QUEtiapine FUMARATE 25 MG TABLET GT SCH (10:19)
[2022-10-29] MEDS: MIDODRINE HCL 2.5 MG TABLET GT SCH ×3 (10:19→18:40)
[2022-10-29] MEDS: ENOXAPARIN NA (PORCINE) 40 MG/0.4 ML DISP.SYRIN SQ SCH (10:19)
[2022-10-29] MEDS: AMINO ACIDS/PROTEIN HYDROLYS 30 ML LIQUID.PKT GT SCH ×2 (10:19→17:06)
[2022-10-29] MEDS: NAPH,MB-DB/K PH,MBDB POWDER PACKET GT SCH ×2 (10:19→22:08)
[2022-10-29] MEDS: AMIODARONE HCL 200 MG TABLET NGT SCH ×2 (10:19→22:08)
[2022-10-29] MEDS: METOPROLOL TARTRATE 25 MG TABLET (FP) GT SCH ×2 (10:19→22:09)
[2022-10-29] MEDS: COLLAGENASE CLOSTRIDIUM HIST. 30 GRAMS TUBE TP SCH (10:20)
[2022-10-29] MEDS: PANTOPRAZOLE SODIUM 40 MG VIAL IVPUSH SCH ×2 (10:20→22:09)
[2022-10-29] MEDS: QUEtiapine FUMARATE 50 MG TABLET GT SCH (22:08)
[2022-10-29] MEDS: CHLORHEXIDINE GLUCONATE 4% CLEANSER FOR DECOLONIZATION TP SCH (22:09)
[2022-10-30] MEDS: AMPICILLIN NA/SULBACTAM NA 1.5 GM in SODIUM CHLORIDE 100 ML IVPB SCH ×4 (03:32→21:03)
[2022-10-30] MEDS: TORSEMIDE 20 MG TABLET (FP) PO SCH ×2 (06:27→15:00)
[2022-10-30 06:55] LABS: BASO % 0.6 % (0-2.0); EOS % 3.7 % (0-4.5); HEMATOCRIT 26.4 % (35.4-49); HEMOGLOBIN 8.9 GM/dL (11.7-16.9); LYMPH % 20.5 % (8-40); MCH 29.7 pg (25.7-33.7); MCHC 33.8 g/dl (32.0-35.9); MEAN CELL VOLUME 87.7 fl (80-96); MEAN PLT VOLUME 8.6 fl (7.5-11.1); MONO % 7.1 % (3.8-10.2); NEUT % 68.1 % (42.8-82.8); PLATELET COUNT 493 10^3/uL (134-434); RBC 3.01 M/mm3 (4.00-5.60); RDW 15.7 % (11.9-15.9); WHITE BLOOD COUNT 15.7 K/mm3 (4.0-10.0)
[2022-10-30 07:18] LABS: POTASSIUM 3.8 mmol/L (3.5-5.1)
[2022-10-30 07:21] LABS: CALCIUM 8.4 mg/dL (8.5-10.1)
[2022-10-30 07:22] LABS: ALBUMIN 1.7 g/dl (3.4-5.0); BLOOD UREA NITROGEN 27.8 mg/dL (7-18)
[2022-10-30 07:25] LABS: CREATININE 0.4 mg/dL (0.55-1.3)
[2022-10-30 07:27] LABS: BILIRUBIN,TOTAL 0.5 mg/dL (0.2-1); TOT PROT 6.2 g/dl (6.4-8.2)
[2022-10-30] MEDS: AMINO ACIDS/PROTEIN HYDROLYS 30 ML LIQUID.PKT GT SCH ×2 (09:35→16:52)
[2022-10-30] MEDS: AMIODARONE HCL 200 MG TABLET NGT SCH ×2 (09:36→21:03)
[2022-10-30] MEDS: MIDODRINE HCL 2.5 MG TABLET GT SCH ×2 (09:36→21:02)
[2022-10-30] MEDS: PANTOPRAZOLE SODIUM 40 MG VIAL IVPUSH SCH ×2 (09:36→21:02)
[2022-10-30] MEDS: COLLAGENASE CLOSTRIDIUM HIST. 30 GRAMS TUBE TP SCH (09:36)
[2022-10-30] MEDS: ENOXAPARIN NA (PORCINE) 40 MG/0.4 ML DISP.SYRIN SQ SCH (09:36)
[2022-10-30] MEDS: NAPH,MB-DB/K PH,MBDB POWDER PACKET GT SCH ×2 (09:36→21:02)
[2022-10-30] MEDS: METOPROLOL TARTRATE 25 MG TABLET (FP) GT SCH ×2 (09:36→21:02)
[2022-10-30] MEDS: QUEtiapine FUMARATE 25 MG TABLET GT SCH (09:36)
[2022-10-30] MEDS: ASCORBIC ACID 500 MG/5 ML UNIT DOSE CUP GT SCH (09:37)
[2022-10-30] MEDS: QUEtiapine FUMARATE 50 MG TABLET GT SCH (21:02)
[2022-10-30] MEDS: ACETAMINOPHEN 650 MG/20.3 ML ORAL SOLUTION (CUPS) GT PRN (21:02)
[2022-10-30] MEDS: CHLORHEXIDINE GLUCONATE 4% CLEANSER FOR DECOLONIZATION TP SCH (21:03)
[2022-10-31] MEDS: AMPICILLIN NA/SULBACTAM NA 1.5 GM in SODIUM CHLORIDE 100 ML IVPB SCH ×4 (02:44→20:48)
[2022-10-31] MEDS: TORSEMIDE 20 MG TABLET (FP) PO SCH ×2 (05:08→15:00)
[2022-10-31] MEDS: PANTOPRAZOLE SODIUM 40 MG VIAL IVPUSH SCH ×2 (11:21→21:52)
[2022-10-31] MEDS: METOPROLOL TARTRATE 25 MG TABLET (FP) GT SCH ×2 (11:22→21:52)
[2022-10-31] MEDS: ENOXAPARIN NA (PORCINE) 40 MG/0.4 ML DISP.SYRIN SQ SCH (11:22)
[2022-10-31] MEDS: QUEtiapine FUMARATE 25 MG TABLET GT SCH (11:23)
[2022-10-31] MEDS: AMIODARONE HCL 200 MG TABLET NGT SCH ×2 (11:23→21:52)
[2022-10-31] MEDS: MIDODRINE HCL 2.5 MG TABLET GT SCH ×2 (11:23→21:53)
[2022-10-31] MEDS: AMINO ACIDS/PROTEIN HYDROLYS 30 ML LIQUID.PKT GT SCH ×2 (11:23→17:59)
[2022-10-31] MEDS: NAPH,MB-DB/K PH,MBDB POWDER PACKET GT SCH ×2 (11:23→21:52)
[2022-10-31] MEDS: ASCORBIC ACID 500 MG/5 ML UNIT DOSE CUP GT SCH (11:26)
[2022-10-31] MEDS: COLLAGENASE CLOSTRIDIUM HIST. 30 GRAMS TUBE TP SCH (11:29)
[2022-10-31] MEDS: QUEtiapine FUMARATE 50 MG TABLET GT SCH (21:52)
[2022-10-31] MEDS: CHLORHEXIDINE GLUCONATE 4% CLEANSER FOR DECOLONIZATION TP SCH (21:53)
[2022-11-01] MEDS ORDERED: SODIUM CHLORIDE 1,000 ML IV STA (00:28)
[2022-11-01] MEDS: AMPICILLIN NA/SULBACTAM NA 1.5 GM in SODIUM CHLORIDE 100 ML IVPB SCH ×2 (02:54→09:49)
[2022-11-01] MEDS: TORSEMIDE 20 MG TABLET (FP) PO SCH ×2 (05:07→14:24)
[2022-11-01] MEDS: NAPH,MB-DB/K PH,MBDB POWDER PACKET GT SCH ×2 (09:49→22:14)
[2022-11-01] MEDS: AMINO ACIDS/PROTEIN HYDROLYS 30 ML LIQUID.PKT GT SCH ×2 (09:49→19:00)
[2022-11-01] MEDS: PANTOPRAZOLE SODIUM 40 MG VIAL IVPUSH SCH ×2 (09:50→22:14)
[2022-11-01] MEDS: ENOXAPARIN NA (PORCINE) 40 MG/0.4 ML DISP.SYRIN SQ SCH (09:50)
[2022-11-01] MEDS: AMIODARONE HCL 200 MG TABLET NGT SCH ×2 (09:50→22:14)
[2022-11-01] MEDS: ASCORBIC ACID 500 MG/5 ML UNIT DOSE CUP GT SCH (09:50)
[2022-11-01] MEDS: QUEtiapine FUMARATE 25 MG TABLET GT SCH (09:50)
[2022-11-01] MEDS: METOPROLOL TARTRATE 25 MG TABLET (FP) GT SCH ×2 (09:50→22:14)
[2022-11-01] MEDS: MIDODRINE HCL 2.5 MG TABLET GT SCH ×2 (09:50→22:14)
[2022-11-01] MEDS: COLLAGENASE CLOSTRIDIUM HIST. 30 GRAMS TUBE TP SCH (10:30)
[2022-11-01] MEDS: AMOX TR/POTASSIUM CLAVULANATE 400 MG/5 ML BOTTLE PO SCH (20:05)
[2022-11-01] MEDS: QUEtiapine FUMARATE 50 MG TABLET GT SCH (22:14)
[2022-11-01] MEDS: CHLORHEXIDINE GLUCONATE 4% CLEANSER FOR DECOLONIZATION TP SCH (22:14)
[2022-11-02] MEDS: TORSEMIDE 20 MG TABLET (FP) PO SCH ×2 (05:19→14:28)
[2022-11-02] MEDS: AMINO ACIDS/PROTEIN HYDROLYS 30 ML LIQUID.PKT GT SCH ×2 (07:54→17:43)
[2022-11-02] MEDS: AMOX TR/POTASSIUM CLAVULANATE 400 MG/5 ML BOTTLE PO SCH ×2 (07:54→17:43)
[2022-11-02] MEDS: NAPH,MB-DB/K PH,MBDB POWDER PACKET GT SCH ×2 (09:57→21:53)
[2022-11-02] MEDS: PANTOPRAZOLE SODIUM 40 MG VIAL IVPUSH SCH ×2 (09:57→21:53)
[2022-11-02] MEDS: AMIODARONE HCL 200 MG TABLET NGT SCH ×2 (09:58→21:53)
[2022-11-02] MEDS: ASCORBIC ACID 500 MG/5 ML UNIT DOSE CUP GT SCH (09:58)
[2022-11-02] MEDS: METOPROLOL TARTRATE 25 MG TABLET (FP) GT SCH ×2 (09:58→21:53)
[2022-11-02] MEDS: QUEtiapine FUMARATE 25 MG TABLET GT SCH (09:58)
[2022-11-02] MEDS: MIDODRINE HCL 2.5 MG TABLET GT SCH ×2 (09:58→21:53)
[2022-11-02] MEDS: COLLAGENASE CLOSTRIDIUM HIST. 30 GRAMS TUBE TP SCH (10:00)
[2022-11-02] MEDS: CHLORHEXIDINE GLUCONATE 4% CLEANSER FOR DECOLONIZATION TP SCH (21:53)
[2022-11-02] MEDS: QUEtiapine FUMARATE 50 MG TABLET GT SCH (21:53)
[2022-11-03 01:05] LABS: HEMATOCRIT 30.8 % (35.4-49); HEMOGLOBIN 9.8 GM/dL (11.7-16.9); MCH 28.2 pg (25.7-33.7); MCHC 31.8 g/dl (32.0-35.9); MEAN CELL VOLUME 88.8 fl (80-96); MEAN PLT VOLUME 8.9 fl (7.5-11.1); PLATELET COUNT 637 10^3/uL (134-434); RBC 3.47 M/mm3 (4.00-5.60); RDW 15.8 % (11.9-15.9); WHITE BLOOD COUNT 28.3 K/mm3 (4.0-10.0)
[2022-11-03 01:24] LABS: CALCIUM 8.7 mg/dL (8.5-10.1)
[2022-11-03 01:25] LABS: BLOOD UREA NITROGEN 37.6 mg/dL (7-18)
[2022-11-03 01:29] LABS: CREATININE 0.6 mg/dL (0.55-1.3)
[2022-11-03 01:45] LABS: ALLENS TEST POSITIVE; ARTERIAL BLD GAS O2 SATURATION 94.4 % (95-98); ARTERIAL BLOOD GAS PO2 66.1 mmHg (80-100); ARTERIAL BLOOD GAS pH 7.485 (7.350-7.450)
[2022-11-03 01:46] LABS: VENT MODE A/C; VENT RATE 14
[2022-11-03 04:09] LABS: EPI CELLS 28 /uL (0-25.1); HYALINE CASTS 8 /uL (0-3.1); PH,URINE 5.5 (5.0-8.0); URINE APPEARANCE CLEAR; URINE BACTERIA 7 /uL (0-1359); URINE BILIRUBIN NEGATIVE (NEGATIVE); URINE COLOR DK YELLOW; URINE GLUCOSE (UA) NEGATIVE (NEGATIVE); URINE KETONE TRACE (NEGATIVE); URINE LEUK ESTERASE 2+ (NEGATIVE); URINE NITRITE NEGATIVE (NEGATIVE); URINE PROTEIN TRACE (NEGATIVE); URINE RBC 31 /uL (0-23.9); URINE WBC 231 /uL (0-25.8)
[2022-11-03] MEDS ORDERED: MEROPENEM 1 GM in DEXTROSE 5%-WATER 100 ML IVPB ONE (04:21)
[2022-11-03] MEDS ORDERED: LACTATED RINGERS SOLUTION 1000 ML INFUS.BAG IV ONE (04:30)
[2022-11-03] MEDS ORDERED: SODIUM CHLORIDE IVPB ONE (04:45)
[2022-11-03] MEDS ORDERED: TOBRAMYCIN SULFATE IVPB ONE (04:45)
[2022-11-03] MEDS ORDERED: VANCOMYCIN/WATER 1,250 MG/250 ML BAG (RESTRICTED TO ID ONLY) IVPB ONE ×2 (05:00→08:30)
[2022-11-03] MEDS: ALBUTEROL SO4 0.083% IH SOL 2.5 MG/3 ML VIAL.NEB. NEB SCH ×3 (05:03→05:30)
[2022-11-03] MEDS ORDERED: LACTATED RINGERS SOLUTION 1,000 ML/1,000 ML INFUS.BAG IV STA ×2 (05:58→07:06)
[2022-11-03 06:03] LABS: LACTIC ACID 3.5 mmol/L (0.4-2.0)
[2022-11-03] MEDS: AMINO ACIDS/PROTEIN HYDROLYS 30 ML LIQUID.PKT GT SCH ×2 (07:56→17:06)
[2022-11-03] MEDS: NAPH,MB-DB/K PH,MBDB POWDER PACKET GT SCH ×2 (09:02→22:28)
[2022-11-03] MEDS: AMOX TR/POTASSIUM CLAVULANATE 400 MG/5 ML BOTTLE PO SCH (09:02)
[2022-11-03] MEDS: MIDODRINE HCL 2.5 MG TABLET GT SCH ×3 (09:03→17:06)
[2022-11-03] MEDS: COLLAGENASE CLOSTRIDIUM HIST. 30 GRAMS TUBE TP SCH (09:03)
[2022-11-03] MEDS: QUEtiapine FUMARATE 25 MG TABLET GT SCH (09:03)
[2022-11-03] MEDS: PANTOPRAZOLE SODIUM 40 MG VIAL IVPUSH SCH ×2 (09:03→22:28)
[2022-11-03] MEDS: ASCORBIC ACID 500 MG/5 ML UNIT DOSE CUP GT SCH (09:03)
[2022-11-03] MEDS: AMIODARONE HCL 200 MG TABLET NGT SCH ×2 (09:04→22:29)
[2022-11-03 11:23] LABS: LACTIC ACID 3.2 mmol/L (0.4-2.0)
[2022-11-03] MEDS: NOREPINEPHRINE BITARTRATE/D5W 8 MG/250 ML BAG IVPB SCH (11:48)
[2022-11-03] MEDS: MEROPENEM 1 GM in DEXTROSE 5%-WATER 100 ML IVPB SCH ×2 (13:06→17:05)
[2022-11-03] MEDS: DOXYCYCLINE INJECTION 100 MG in DEXTROSE 5%-WATER 100 ML IVPB SCH ×2 (14:15→22:28)
[2022-11-03] MEDS: VANCOMYCIN/WATER 1250 MG 1,250 MG/250 ML BAG IVPB SCH (19:36)
[2022-11-03] MEDS: QUEtiapine FUMARATE 50 MG TABLET GT SCH (22:28)
[2022-11-03] MEDS: CHLORHEXIDINE GLUCONATE 4% CLEANSER FOR DECOLONIZATION TP SCH (22:29)
[2022-11-04] MEDS: ACETAMINOPHEN 650 MG/20.3 ML ORAL SOLUTION (CUPS) GT PRN (01:43)
[2022-11-04] MEDS: MEROPENEM 1 GM in DEXTROSE 5%-WATER 100 ML IVPB SCH ×3 (01:45→17:00)
[2022-11-04] MEDS: VANCOMYCIN/WATER 1250 MG 1,250 MG/250 ML BAG IVPB SCH ×2 (06:28→18:15)
[2022-11-04 07:34] LABS: EOS % 6.8 % (0-4.5); HEMATOCRIT 23.8 % (35.4-49); MCH 29.5 pg (25.7-33.7); MCHC 33.8 g/dl (32.0-35.9); MEAN CELL VOLUME 87.4 fl (80-96); MEAN PLT VOLUME 8.8 fl (7.5-11.1); MONO % 7.6 % (3.8-10.2); NEUT % 66.6 % (42.8-82.8); PLATELET COUNT 409 10^3/uL (134-434); RBC 2.72 M/mm3 (4.00-5.60); RDW 15.3 % (11.9-15.9); WHITE BLOOD COUNT 16.6 K/mm3 (4.0-10.0)
[2022-11-04 07:52] LABS: POTASSIUM 3.1 mmol/L (3.5-5.1)
[2022-11-04 07:56] LABS: CALCIUM 8.3 mg/dL (8.5-10.1)
[2022-11-04 07:57] LABS: BLOOD UREA NITROGEN 27.2 mg/dL (7-18)
[2022-11-04 07:58] LABS: LACTIC ACID 2.1 mmol/L (0.4-2.0)
[2022-11-04 08:00] LABS: CREATININE 0.4 mg/dL (0.55-1.3)
[2022-11-04] MEDS: AMINO ACIDS/PROTEIN HYDROLYS 30 ML LIQUID.PKT GT SCH ×2 (09:00→16:58)
[2022-11-04] MEDS: NAPH,MB-DB/K PH,MBDB POWDER PACKET GT SCH ×2 (09:08→21:52)
[2022-11-04] MEDS: POTASSIUM CHLORIDE ORAL LIQUID 20 MEQ/15 ML GT SCH ×2 (09:08→21:53)
[2022-11-04] MEDS: AMIODARONE HCL 200 MG TABLET NGT SCH ×2 (09:08→21:52)
[2022-11-04] MEDS: DOXYCYCLINE INJECTION 100 MG in DEXTROSE 5%-WATER 100 ML IVPB SCH ×2 (09:09→21:51)
[2022-11-04] MEDS: PANTOPRAZOLE SODIUM 40 MG VIAL IVPUSH SCH ×2 (09:09→21:54)
[2022-11-04] MEDS: QUEtiapine FUMARATE 25 MG TABLET GT SCH (09:09)
[2022-11-04] MEDS: MIDODRINE HCL 2.5 MG TABLET GT SCH ×3 (09:09→17:00)
[2022-11-04] MEDS: COLLAGENASE CLOSTRIDIUM HIST. 30 GRAMS TUBE TP SCH (09:09)
[2022-11-04] MEDS: ASCORBIC ACID 500 MG/5 ML UNIT DOSE CUP GT SCH (09:10)
[2022-11-04] MEDS ORDERED: REMDESIVIR 200 MG in SODIUM CHLORIDE 250 ML IVPB ONE (11:00)
[2022-11-04] MEDS: NOREPINEPHRINE BITARTRATE/D5W 8 MG/250 ML BAG IVPB SCH ×2 (12:00→17:10)
[2022-11-04] MEDS: ENOXAPARIN NA (PORCINE) 40 MG/0.4 ML DISP.SYRIN SQ SCH (15:25)
[2022-11-04] MEDS: QUEtiapine FUMARATE 50 MG TABLET GT SCH (21:52)
[2022-11-04] MEDS: CHLORHEXIDINE GLUCONATE 4% CLEANSER FOR DECOLONIZATION TP SCH (21:53)
[2022-11-05] MEDS: MEROPENEM 1 GM in DEXTROSE 5%-WATER 100 ML IVPB SCH ×3 (01:13→17:11)
[2022-11-05] MEDS: VANCOMYCIN/WATER 1250 MG 1,250 MG/250 ML BAG IVPB SCH ×2 (06:13→18:24)
[2022-11-05 07:22] LABS: BASO % 1.1 % (0-2.0); EOS % 5.9 % (0-4.5); HEMATOCRIT 24.9 % (35.4-49); HEMOGLOBIN 8.4 GM/dL (11.7-16.9); MCH 29.5 pg (25.7-33.7); MCHC 33.8 g/dl (32.0-35.9); MEAN CELL VOLUME 87.1 fl (80-96); MEAN PLT VOLUME 8.7 fl (7.5-11.1); MONO % 8.2 % (3.8-10.2); NEUT % 63.8 % (42.8-82.8); PLATELET COUNT 414 10^3/uL (134-434); RBC 2.86 M/mm3 (4.00-5.60); RDW 15.3 % (11.9-15.9); WHITE BLOOD COUNT 16.2 K/mm3 (4.0-10.0)
[2022-11-05 07:44] LABS: POTASSIUM 3.8 mmol/L (3.5-5.1)
[2022-11-05] MEDS: QUEtiapine FUMARATE 25 MG TABLET GT SCH (09:52)
[2022-11-05] MEDS: AMIODARONE HCL 200 MG TABLET NGT SCH ×2 (09:52→21:35)
[2022-11-05] MEDS: COLLAGENASE CLOSTRIDIUM HIST. 30 GRAMS TUBE TP SCH (09:52)
[2022-11-05] MEDS: NAPH,MB-DB/K PH,MBDB POWDER PACKET GT SCH ×2 (09:52→21:35)
[2022-11-05] MEDS: ENOXAPARIN NA (PORCINE) 40 MG/0.4 ML DISP.SYRIN SQ SCH (09:52)
[2022-11-05] MEDS: AMINO ACIDS/PROTEIN HYDROLYS 30 ML LIQUID.PKT GT SCH ×2 (09:52→16:57)
[2022-11-05] MEDS: MIDODRINE HCL 2.5 MG TABLET GT SCH ×3 (09:52→18:32)
[2022-11-05] MEDS: PANTOPRAZOLE SODIUM 40 MG VIAL IVPUSH SCH ×2 (09:52→21:36)
[2022-11-05] MEDS: ASCORBIC ACID 500 MG/5 ML UNIT DOSE CUP GT SCH (09:52)
[2022-11-05] MEDS: DOXYCYCLINE INJECTION 100 MG in DEXTROSE 5%-WATER 100 ML IVPB SCH ×2 (10:47→21:36)
[2022-11-05] MEDS: REMDESIVIR 100 MG in SODIUM CHLORIDE 250 ML IVPB SCH (12:02)
[2022-11-05] MEDS: CHLORHEXIDINE GLUCONATE 4% CLEANSER FOR DECOLONIZATION TP SCH (21:35)
[2022-11-05] MEDS: QUEtiapine FUMARATE 50 MG TABLET GT SCH (21:36)
[2022-11-06] MEDS: MEROPENEM 1 GM in DEXTROSE 5%-WATER 100 ML IVPB SCH ×3 (01:15→17:24)
[2022-11-06] MEDS: VANCOMYCIN/WATER 1250 MG 1,250 MG/250 ML BAG IVPB SCH (06:31)
[2022-11-06 07:26] LABS: BASO % 0.8 % (0-2.0); EOS % 5.1 % (0-4.5); HEMATOCRIT 25.5 % (35.4-49); HEMOGLOBIN 8.6 GM/dL (11.7-16.9); LYMPH % 25.2 % (8-40); MCH 29.3 pg (25.7-33.7); MCHC 33.6 g/dl (32.0-35.9); MEAN CELL VOLUME 87.2 fl (80-96); MONO % 9.1 % (3.8-10.2); NEUT % 59.8 % (42.8-82.8); PLATELET COUNT 441 10^3/uL (134-434); RBC 2.93 M/mm3 (4.00-5.60); RDW 15.1 % (11.9-15.9)
[2022-11-06 07:56] LABS: CALCIUM 8.4 mg/dL (8.5-10.1)
[2022-11-06 07:57] LABS: ALBUMIN 1.5 g/dl (3.4-5.0); BLOOD UREA NITROGEN 22.7 mg/dL (7-18); MAGNESIUM 2.1 mg/dL (1.8-2.4)
[2022-11-06 08:00] LABS: CREATININE 0.3 mg/dL (0.55-1.3); PHOSPHOROUS 2.1 mg/dL (2.5-4.9)
[2022-11-06 08:01] LABS: BILIRUBIN,TOTAL 0.4 mg/dL (0.2-1)
[2022-11-06] MEDS: ACETAMINOPHEN 650 MG/20.3 ML ORAL SOLUTION (CUPS) GT PRN ×2 (09:22→21:44)
[2022-11-06] MEDS: ASCORBIC ACID 500 MG/5 ML UNIT DOSE CUP GT SCH (09:22)
[2022-11-06] MEDS: PANTOPRAZOLE SODIUM 40 MG VIAL IVPUSH SCH ×2 (09:22→21:45)
[2022-11-06] MEDS: AMINO ACIDS/PROTEIN HYDROLYS 30 ML LIQUID.PKT GT SCH ×2 (09:22→17:24)
[2022-11-06] MEDS: MIDODRINE HCL 5 MG TABLET GT SCH ×3 (09:22→17:24)
[2022-11-06] MEDS: AMIODARONE HCL 200 MG TABLET NGT SCH ×2 (09:22→21:45)
[2022-11-06] MEDS: QUEtiapine FUMARATE 25 MG TABLET GT SCH (09:22)
[2022-11-06] MEDS: ENOXAPARIN NA (PORCINE) 40 MG/0.4 ML DISP.SYRIN SQ SCH (09:22)
[2022-11-06] MEDS: NAPH,MB-DB/K PH,MBDB POWDER PACKET GT SCH ×2 (09:22→21:44)
[2022-11-06] MEDS: COLLAGENASE CLOSTRIDIUM HIST. 30 GRAMS TUBE TP SCH (09:23)
[2022-11-06] MEDS: DOXYCYCLINE INJECTION 100 MG in DEXTROSE 5%-WATER 100 ML IVPB SCH (10:50)
[2022-11-06] MEDS: REMDESIVIR 100 MG in SODIUM CHLORIDE 250 ML IVPB SCH (11:11)
[2022-11-06] MEDS: QUEtiapine FUMARATE 50 MG TABLET GT SCH (21:45)
[2022-11-06] MEDS: CHLORHEXIDINE GLUCONATE 4% CLEANSER FOR DECOLONIZATION TP SCH (21:46)
[2022-11-07] MEDS: MEROPENEM 1 GM in DEXTROSE 5%-WATER 100 ML IVPB SCH ×3 (02:34→18:04)
[2022-11-07 07:48] LABS: BASO % 0.5 % (0-2.0); EOS % 5.5 % (0-4.5); HEMOGLOBIN 8.3 GM/dL (11.7-16.9); LYMPH % 23.9 % (8-40); MCHC 33.4 g/dl (32.0-35.9); MEAN PLT VOLUME 9.2 fl (7.5-11.1); MONO % 8.9 % (3.8-10.2); NEUT % 61.2 % (42.8-82.8); PLATELET COUNT 421 10^3/uL (134-434); RBC 2.87 M/mm3 (4.00-5.60); RDW 15.5 % (11.9-15.9); WHITE BLOOD COUNT 13.4 K/mm3 (4.0-10.0)
[2022-11-07 08:08] LABS: POTASSIUM 3.9 mmol/L (3.5-5.1)
[2022-11-07 08:17] LABS: ALBUMIN 1.4 g/dl (3.4-5.0); MAGNESIUM 2.3 mg/dL (1.8-2.4)
[2022-11-07 08:19] LABS: CREATININE 0.2 mg/dL (0.55-1.3)
[2022-11-07 08:20] LABS: PHOSPHOROUS 2.4 mg/dL (2.5-4.9)
[2022-11-07 08:21] LABS: BILIRUBIN,TOTAL 0.5 mg/dL (0.2-1); TOT PROT 5.4 g/dl (6.4-8.2)
[2022-11-07] MEDS: QUEtiapine FUMARATE 25 MG TABLET GT SCH (09:15)
[2022-11-07] MEDS: MIDODRINE HCL 5 MG TABLET GT SCH ×3 (09:15→18:06)
[2022-11-07] MEDS: AMIODARONE HCL 200 MG TABLET NGT SCH ×2 (09:15→21:50)
[2022-11-07] MEDS: PANTOPRAZOLE SODIUM 40 MG VIAL IVPUSH SCH ×2 (09:15→21:50)
[2022-11-07] MEDS: ENOXAPARIN NA (PORCINE) 40 MG/0.4 ML DISP.SYRIN SQ SCH (09:16)
[2022-11-07] MEDS: AMINO ACIDS/PROTEIN HYDROLYS 30 ML LIQUID.PKT GT SCH ×2 (09:16→18:05)
[2022-11-07] MEDS: COLLAGENASE CLOSTRIDIUM HIST. 30 GRAMS TUBE TP SCH (09:16)
[2022-11-07] MEDS: NAPH,MB-DB/K PH,MBDB POWDER PACKET GT SCH ×2 (09:16→21:50)
[2022-11-07] MEDS: ASCORBIC ACID 500 MG/5 ML UNIT DOSE CUP GT SCH (18:06)
[2022-11-07] MEDS: QUEtiapine FUMARATE 50 MG TABLET GT SCH (21:50)
[2022-11-07] MEDS: ACETAMINOPHEN 650 MG/20.3 ML ORAL SOLUTION (CUPS) GT PRN (21:50)
[2022-11-07] MEDS: CHLORHEXIDINE GLUCONATE 4% CLEANSER FOR DECOLONIZATION TP SCH (22:01)
[2022-11-08] MEDS: MEROPENEM 1 GM in DEXTROSE 5%-WATER 100 ML IVPB SCH ×3 (02:21→17:11)
[2022-11-08] MEDS: AMINO ACIDS/PROTEIN HYDROLYS 30 ML LIQUID.PKT GT SCH ×2 (10:02→17:11)
[2022-11-08] MEDS: AMIODARONE HCL 200 MG TABLET NGT SCH ×2 (10:02→21:32)
[2022-11-08] MEDS: QUEtiapine FUMARATE 25 MG TABLET GT SCH (10:02)
[2022-11-08] MEDS: ENOXAPARIN NA (PORCINE) 40 MG/0.4 ML DISP.SYRIN SQ SCH (10:02)
[2022-11-08] MEDS: MIDODRINE HCL 5 MG TABLET GT SCH ×3 (10:02→17:11)
[2022-11-08] MEDS: COLLAGENASE CLOSTRIDIUM HIST. 30 GRAMS TUBE TP SCH (10:02)
[2022-11-08] MEDS: PANTOPRAZOLE SODIUM 40 MG VIAL IVPUSH SCH ×2 (10:02→21:32)
[2022-11-08] MEDS: NAPH,MB-DB/K PH,MBDB POWDER PACKET GT SCH ×2 (10:02→21:32)
[2022-11-08] MEDS: ASCORBIC ACID 500 MG/5 ML UNIT DOSE CUP GT SCH (10:04)
[2022-11-08] MEDS: ACETAMINOPHEN 650 MG/20.3 ML ORAL SOLUTION (CUPS) GT PRN (21:31)
[2022-11-08] MEDS: CHLORHEXIDINE GLUCONATE 4% CLEANSER FOR DECOLONIZATION TP SCH (21:32)
[2022-11-08] MEDS: QUEtiapine FUMARATE 50 MG TABLET GT SCH (21:32)
[2022-11-08] MEDS ORDERED: LACTATED RINGERS SOLUTION 1,000 ML/1,000 ML INFUS.BAG STA (23:04)
[2022-11-08] MEDS ORDERED: LACTATED RINGERS SOLUTION 1,000 ML/1,000 ML INFUS.BAG IV STA (23:20)
[2022-11-09] MEDS: MEROPENEM 1 GM in DEXTROSE 5%-WATER 100 ML IVPB SCH ×3 (02:59→17:13)
[2022-11-09 07:38] LABS: HEMATOCRIT 24.4 % (35.4-49); HEMOGLOBIN 8.4 GM/dL (11.7-16.9); MCHC 34.6 g/dl (32.0-35.9); MEAN CELL VOLUME 86.6 fl (80-96); MEAN PLT VOLUME 9.1 fl (7.5-11.1); PLATELET COUNT 401 10^3/uL (134-434); RBC 2.82 M/mm3 (4.00-5.60); RDW 15.9 % (11.9-15.9); WHITE BLOOD COUNT 10.2 K/mm3 (4.0-10.0)
[2022-11-09 08:09] LABS: CALCIUM 7.6 mg/dL (8.5-10.1)
[2022-11-09 08:10] LABS: ALBUMIN 1.2 g/dl (3.4-5.0); BLOOD UREA NITROGEN 27.1 mg/dL (7-18)
[2022-11-09 08:13] LABS: CREATININE 0.3 mg/dL (0.55-1.3)
[2022-11-09 08:14] LABS: BILIRUBIN,TOTAL 0.6 mg/dL (0.2-1); TOT PROT 5.4 g/dl (6.4-8.2)
[2022-11-09] MEDS: AMINO ACIDS/PROTEIN HYDROLYS 30 ML LIQUID.PKT GT SCH ×2 (09:00→17:12)
[2022-11-09] MEDS: NAPH,MB-DB/K PH,MBDB POWDER PACKET GT SCH ×2 (09:22→21:15)
[2022-11-09] MEDS: AMIODARONE HCL 200 MG TABLET NGT SCH ×2 (09:22→21:15)
[2022-11-09] MEDS: ENOXAPARIN NA (PORCINE) 40 MG/0.4 ML DISP.SYRIN SQ SCH (09:22)
[2022-11-09] MEDS: MIDODRINE HCL 5 MG TABLET PO SCH ×3 (09:22→17:12)
[2022-11-09] MEDS: QUEtiapine FUMARATE 25 MG TABLET GT SCH (09:23)
[2022-11-09] MEDS: PANTOPRAZOLE SODIUM 40 MG VIAL IVPUSH SCH ×2 (09:23→21:15)
[2022-11-09] MEDS: ASCORBIC ACID 500 MG/5 ML UNIT DOSE CUP GT SCH (09:23)
[2022-11-09] MEDS: ACETAMINOPHEN 650 MG/20.3 ML ORAL SOLUTION (CUPS) GT PRN (09:23)
[2022-11-09] MEDS: COLLAGENASE CLOSTRIDIUM HIST. 30 GRAMS TUBE TP SCH (09:24)
[2022-11-09 09:53] LABS: ANISOCYTOSIS 0; MACROCYTOSIS 0
[2022-11-09] MEDS: QUEtiapine FUMARATE 50 MG TABLET GT SCH (21:14)
[2022-11-09] MEDS: CHLORHEXIDINE GLUCONATE 4% CLEANSER FOR DECOLONIZATION TP SCH (21:15)
[2022-11-10] MEDS: MEROPENEM 1 GM in DEXTROSE 5%-WATER 100 ML IVPB SCH ×3 (01:07→17:49)
[2022-11-10] MEDS: AMINO ACIDS/PROTEIN HYDROLYS 30 ML LIQUID.PKT GT SCH ×2 (09:00→17:49)
[2022-11-10] MEDS: NAPH,MB-DB/K PH,MBDB POWDER PACKET GT SCH ×2 (09:40→21:06)
[2022-11-10] MEDS: MIDODRINE HCL 5 MG TABLET PO SCH ×3 (09:40→17:49)
[2022-11-10] MEDS: ASCORBIC ACID 500 MG/5 ML UNIT DOSE CUP GT SCH (09:40)
[2022-11-10] MEDS: ENOXAPARIN NA (PORCINE) 40 MG/0.4 ML DISP.SYRIN SQ SCH (09:40)
[2022-11-10] MEDS: AMIODARONE HCL 200 MG TABLET NGT SCH ×2 (09:40→21:07)
[2022-11-10] MEDS: QUEtiapine FUMARATE 25 MG TABLET GT SCH (09:40)
[2022-11-10] MEDS: PANTOPRAZOLE SODIUM 40 MG VIAL IVPUSH SCH ×2 (09:40→21:06)
[2022-11-10] MEDS: COLLAGENASE CLOSTRIDIUM HIST. 30 GRAMS TUBE TP SCH (09:41)
[2022-11-10] MEDS: QUEtiapine FUMARATE 50 MG TABLET GT SCH (21:07)
[2022-11-10] MEDS: CHLORHEXIDINE GLUCONATE 4% CLEANSER FOR DECOLONIZATION TP SCH (21:07)
[2022-11-11] MEDS: MEROPENEM 1 GM in DEXTROSE 5%-WATER 100 ML IVPB SCH ×3 (01:05→17:33)
[2022-11-11] MEDS: ENOXAPARIN NA (PORCINE) 40 MG/0.4 ML DISP.SYRIN SQ SCH (10:02)
[2022-11-11] MEDS: AMINO ACIDS/PROTEIN HYDROLYS 30 ML LIQUID.PKT GT SCH ×2 (10:02→17:33)
[2022-11-11] MEDS: PANTOPRAZOLE SODIUM 40 MG VIAL IVPUSH SCH ×2 (10:03→22:04)
[2022-11-11] MEDS: NAPH,MB-DB/K PH,MBDB POWDER PACKET GT SCH ×2 (10:03→22:04)
[2022-11-11] MEDS: MIDODRINE HCL 5 MG TABLET PO SCH ×3 (10:03→17:33)
[2022-11-11] MEDS: ASCORBIC ACID 500 MG/5 ML UNIT DOSE CUP GT SCH (10:03)
[2022-11-11] MEDS: AMIODARONE HCL 200 MG TABLET NGT SCH ×2 (10:03→22:04)
[2022-11-11] MEDS: QUEtiapine FUMARATE 25 MG TABLET GT SCH (10:03)
[2022-11-11] MEDS: COLLAGENASE CLOSTRIDIUM HIST. 30 GRAMS TUBE TP SCH (10:04)
[2022-11-11] MEDS: FUROSEMIDE 40 MG/4 ML INJECTABLE VIAL IVPUSH SCH (14:47)
[2022-11-11] MEDS: QUEtiapine FUMARATE 50 MG TABLET GT SCH (22:04)
[2022-11-11] MEDS: CHLORHEXIDINE GLUCONATE 4% CLEANSER FOR DECOLONIZATION TP SCH (22:05)
[2022-11-12] MEDS: MEROPENEM 1 GM in DEXTROSE 5%-WATER 100 ML IVPB SCH ×3 (01:53→17:22)
[2022-11-12] MEDS: FUROSEMIDE 40 MG/4 ML INJECTABLE VIAL IVPUSH SCH ×2 (06:59→13:48)
[2022-11-12] MEDS: PANTOPRAZOLE SODIUM 40 MG VIAL IVPUSH SCH ×2 (09:32→21:55)
[2022-11-12] MEDS: MIDODRINE HCL 5 MG TABLET PO SCH ×3 (09:32→17:23)
[2022-11-12] MEDS: QUEtiapine FUMARATE 25 MG TABLET GT SCH ×2 (09:32→10:42)
[2022-11-12] MEDS: AMINO ACIDS/PROTEIN HYDROLYS 30 ML LIQUID.PKT GT SCH ×2 (09:32→17:22)
[2022-11-12] MEDS: AMIODARONE HCL 200 MG TABLET NGT SCH ×2 (09:33→21:55)
[2022-11-12] MEDS: NAPH,MB-DB/K PH,MBDB POWDER PACKET GT SCH ×2 (09:33→21:55)
[2022-11-12] MEDS: COLLAGENASE CLOSTRIDIUM HIST. 30 GRAMS TUBE TP SCH (09:33)
[2022-11-12] MEDS: ASCORBIC ACID 500 MG/5 ML UNIT DOSE CUP GT SCH (09:33)
[2022-11-12] MEDS ORDERED: MIDODRINE HCL 5 MG TABLET PO SCH (14:00)
[2022-11-12] MEDS ORDERED: FUROSEMIDE 40 MG/4 ML INJECTABLE VIAL IVPUSH ONE (16:23)
[2022-11-12] MEDS: QUEtiapine FUMARATE 50 MG TABLET GT SCH (21:55)
[2022-11-12] MEDS: CHLORHEXIDINE GLUCONATE 4% CLEANSER FOR DECOLONIZATION TP SCH (21:55)
[2022-11-13] MEDS: MEROPENEM 1 GM in DEXTROSE 5%-WATER 100 ML IVPB SCH ×3 (01:34→17:51)
[2022-11-13] MEDS: FUROSEMIDE 40 MG/4 ML INJECTABLE VIAL IVPUSH SCH ×2 (06:11→13:46)
[2022-11-13 07:59] LABS: BASO % 0.6 % (0-2.0); EOS % 2.1 % (0-4.5); HEMATOCRIT 25.8 % (35.4-49); HEMOGLOBIN 8.7 GM/dL (11.7-16.9); MCH 28.6 pg (25.7-33.7); MCHC 33.9 g/dl (32.0-35.9); MEAN CELL VOLUME 84.3 fl (80-96); MEAN PLT VOLUME 8.8 fl (7.5-11.1); MONO % 9.3 % (3.8-10.2); PLATELET COUNT 445 10^3/uL (134-434); RBC 3.06 M/mm3 (4.00-5.60); RDW 15.7 % (11.9-15.9); WHITE BLOOD COUNT 12.9 K/mm3 (4.0-10.0)
[2022-11-13 08:22] LABS: POTASSIUM 4.3 mmol/L (3.5-5.1)
[2022-11-13 08:24] LABS: CALCIUM 7.8 mg/dL (8.5-10.1)
[2022-11-13 08:25] LABS: ALBUMIN 1.5 g/dl (3.4-5.0); BLOOD UREA NITROGEN 19.1 mg/dL (7-18); MAGNESIUM 2.1 mg/dL (1.8-2.4)
[2022-11-13 08:28] LABS: CREATININE 0.3 mg/dL (0.55-1.3); PHOSPHOROUS 2.5 mg/dL (2.5-4.9)
[2022-11-13 08:29] LABS: BILIRUBIN,TOTAL 0.3 mg/dL (0.2-1); TOT PROT 6.1 g/dl (6.4-8.2)
[2022-11-13] MEDS: QUEtiapine FUMARATE 25 MG TABLET GT SCH (09:05)
[2022-11-13] MEDS: PANTOPRAZOLE SODIUM 40 MG VIAL IVPUSH SCH ×2 (09:05→21:32)
[2022-11-13] MEDS: NAPH,MB-DB/K PH,MBDB POWDER PACKET GT SCH ×2 (09:05→21:32)
[2022-11-13] MEDS: AMINO ACIDS/PROTEIN HYDROLYS 30 ML LIQUID.PKT GT SCH ×2 (09:05→18:04)
[2022-11-13] MEDS: MIDODRINE HCL 5 MG TABLET PO SCH ×3 (09:05→17:52)
[2022-11-13] MEDS: COLLAGENASE CLOSTRIDIUM HIST. 30 GRAMS TUBE TP SCH (09:05)
[2022-11-13] MEDS: AMIODARONE HCL 200 MG TABLET NGT SCH ×2 (09:05→21:32)
[2022-11-13] MEDS: ASCORBIC ACID 500 MG/5 ML UNIT DOSE CUP GT SCH (10:46)
[2022-11-13] MEDS: ACETAMINOPHEN 650 MG/20.3 ML ORAL SOLUTION (CUPS) GT PRN ×2 (13:46→21:32)
[2022-11-13] MEDS: QUEtiapine FUMARATE 50 MG TABLET GT SCH (21:32)
[2022-11-13] MEDS: CHLORHEXIDINE GLUCONATE 4% CLEANSER FOR DECOLONIZATION TP SCH (21:33)
[2022-11-13] MEDS ORDERED: ACETAMINOPHEN 650 MG/20.3 ML ORAL SOLUTION (CUPS) GT PRN (23:38)
[2022-11-14] MEDS: MEROPENEM 1 GM in DEXTROSE 5%-WATER 100 ML IVPB SCH ×3 (01:45→17:32)
[2022-11-14] MEDS: FUROSEMIDE 40 MG/4 ML INJECTABLE VIAL IVPUSH SCH (05:44)
[2022-11-14] MEDS: MIDODRINE HCL 5 MG TABLET PO SCH ×2 (09:59→17:32)
[2022-11-14] MEDS: PANTOPRAZOLE SODIUM 40 MG VIAL IVPUSH SCH ×2 (09:59→21:34)
[2022-11-14] MEDS: NAPH,MB-DB/K PH,MBDB POWDER PACKET GT SCH ×2 (09:59→21:34)
[2022-11-14] MEDS: COLLAGENASE CLOSTRIDIUM HIST. 30 GRAMS TUBE TP SCH (10:00)
[2022-11-14] MEDS: AMIODARONE HCL 200 MG TABLET NGT SCH ×2 (10:00→21:34)
[2022-11-14] MEDS: AMINO ACIDS/PROTEIN HYDROLYS 30 ML LIQUID.PKT GT SCH ×2 (10:00→17:32)
[2022-11-14] MEDS: ASCORBIC ACID 500 MG/5 ML UNIT DOSE CUP GT SCH (10:00)
[2022-11-14] MEDS: QUEtiapine FUMARATE 25 MG TABLET GT SCH (10:00)
[2022-11-14] MEDS: QUEtiapine FUMARATE 50 MG TABLET GT SCH (21:34)
[2022-11-14] MEDS: CHLORHEXIDINE GLUCONATE 4% CLEANSER FOR DECOLONIZATION TP SCH (21:34)
[2022-11-15] MEDS: MEROPENEM 1 GM in DEXTROSE 5%-WATER 100 ML IVPB SCH (01:01)
[2022-11-15 07:27] LABS: BASO % 0.7 % (0-2.0); EOS % 2.3 % (0-4.5); HEMATOCRIT 24.9 % (35.4-49); HEMOGLOBIN 8.6 GM/dL (11.7-16.9); LYMPH % 26.8 % (8-40); MCHC 34.4 g/dl (32.0-35.9); MEAN CELL VOLUME 84.2 fl (80-96); MEAN PLT VOLUME 8.2 fl (7.5-11.1); NEUT % 63.2 % (42.8-82.8); PLATELET COUNT 485 10^3/uL (134-434); RBC 2.96 M/mm3 (4.00-5.60); RDW 15.7 % (11.9-15.9); WHITE BLOOD COUNT 15.2 K/mm3 (4.0-10.0)
[2022-11-15 07:44] LABS: POTASSIUM 4.5 mmol/L (3.5-5.1)
[2022-11-15 07:48] LABS: ALBUMIN 1.4 g/dl (3.4-5.0); BLOOD UREA NITROGEN 18.6 mg/dL (7-18); CALCIUM 8.2 mg/dL (8.5-10.1); MAGNESIUM 2.3 mg/dL (1.8-2.4)
[2022-11-15 07:51] LABS: CREATININE 0.3 mg/dL (0.55-1.3)
[2022-11-15 07:52] LABS: PHOSPHOROUS 2.3 mg/dL (2.5-4.9)
[2022-11-15 07:53] LABS: BILIRUBIN,TOTAL 0.3 mg/dL (0.2-1)
[2022-11-15] MEDS: MIDODRINE HCL 5 MG TABLET PO SCH ×4 (10:04→18:14)
[2022-11-15] MEDS: AMIODARONE HCL 200 MG TABLET NGT SCH ×2 (10:04→21:20)
[2022-11-15] MEDS: FUROSEMIDE 40 MG/4 ML INJECTABLE VIAL IVPUSH SCH (10:04)
[2022-11-15] MEDS: AMINO ACIDS/PROTEIN HYDROLYS 30 ML LIQUID.PKT GT SCH ×2 (10:04→18:14)
[2022-11-15] MEDS: ASCORBIC ACID 500 MG/5 ML UNIT DOSE CUP GT SCH (10:05)
[2022-11-15] MEDS: QUEtiapine FUMARATE 25 MG TABLET GT SCH (10:05)
[2022-11-15] MEDS: PANTOPRAZOLE SODIUM 40 MG VIAL IVPUSH SCH (10:05)
[2022-11-15] MEDS: NAPH,MB-DB/K PH,MBDB POWDER PACKET GT SCH ×2 (10:05→21:20)
[2022-11-15] MEDS: COLLAGENASE CLOSTRIDIUM HIST. 30 GRAMS TUBE TP SCH (10:05)
[2022-11-15] MEDS: QUEtiapine FUMARATE 50 MG TABLET GT SCH (21:20)
[2022-11-15] MEDS: CHLORHEXIDINE GLUCONATE 4% CLEANSER FOR DECOLONIZATION TP SCH (21:20)
[2022-11-16 07:35] LABS: BASO % 0.8 % (0-2.0); EOS % 1.9 % (0-4.5); HEMATOCRIT 26.2 % (35.4-49); HEMOGLOBIN 8.9 GM/dL (11.7-16.9); LYMPH % 25.1 % (8-40); MCH 28.5 pg (25.7-33.7); MCHC 33.9 g/dl (32.0-35.9); MEAN CELL VOLUME 84.2 fl (80-96); MEAN PLT VOLUME 8.2 fl (7.5-11.1); MONO % 8.9 % (3.8-10.2); NEUT % 63.3 % (42.8-82.8); PLATELET COUNT 543 10^3/uL (134-434); RBC 3.11 M/mm3 (4.00-5.60); RDW 15.8 % (11.9-15.9); WHITE BLOOD COUNT 15.8 K/mm3 (4.0-10.0)
[2022-11-16] MEDS: AMIODARONE HCL 200 MG TABLET NGT SCH ×2 (09:39→21:01)
[2022-11-16] MEDS: NAPH,MB-DB/K PH,MBDB POWDER PACKET GT SCH ×2 (09:39→21:01)
[2022-11-16] MEDS: FUROSEMIDE 40 MG/4 ML INJECTABLE VIAL IVPUSH SCH (09:39)
[2022-11-16] MEDS: ASCORBIC ACID 500 MG/5 ML UNIT DOSE CUP GT SCH (09:39)
[2022-11-16] MEDS: QUEtiapine FUMARATE 25 MG TABLET GT SCH (09:39)
[2022-11-16] MEDS: AMINO ACIDS/PROTEIN HYDROLYS 30 ML LIQUID.PKT GT SCH ×2 (09:39→18:00)
[2022-11-16] MEDS: MIDODRINE HCL 5 MG TABLET PO SCH ×3 (09:39→18:00)
[2022-11-16] MEDS: COLLAGENASE CLOSTRIDIUM HIST. 30 GRAMS TUBE TP SCH (09:40)
[2022-11-16] MEDS: FAMOTIDINE 40 MG/5 ML ORAL SUSPENSION PEG SCH (09:40)
[2022-11-16] MEDS: QUEtiapine FUMARATE 50 MG TABLET GT SCH (21:01)
[2022-11-16] MEDS: CHLORHEXIDINE GLUCONATE 4% CLEANSER FOR DECOLONIZATION TP SCH (21:02)
[2022-11-17] MEDS: COLLAGENASE CLOSTRIDIUM HIST. 30 GRAMS TUBE TP SCH (10:10)
[2022-11-17] MEDS: MIDODRINE HCL 5 MG TABLET PO SCH ×3 (10:10→18:06)
[2022-11-17] MEDS: ASCORBIC ACID 500 MG/5 ML UNIT DOSE CUP GT SCH (10:10)
[2022-11-17] MEDS: AMIODARONE HCL 200 MG TABLET NGT SCH ×2 (10:10→21:18)
[2022-11-17] MEDS: FAMOTIDINE 40 MG/5 ML ORAL SUSPENSION PEG SCH (10:10)
[2022-11-17] MEDS: AMINO ACIDS/PROTEIN HYDROLYS 30 ML LIQUID.PKT GT SCH ×2 (10:10→18:06)
[2022-11-17] MEDS: FUROSEMIDE 40 MG/4 ML INJECTABLE VIAL IVPUSH SCH (10:10)
[2022-11-17] MEDS: NAPH,MB-DB/K PH,MBDB POWDER PACKET GT SCH ×2 (10:10→21:18)
[2022-11-17] MEDS: QUEtiapine FUMARATE 25 MG TABLET GT SCH (10:11)
[2022-11-17] MEDS: CHLORHEXIDINE GLUCONATE 4% CLEANSER FOR DECOLONIZATION TP SCH (21:18)
[2022-11-17] MEDS: QUEtiapine FUMARATE 50 MG TABLET GT SCH (21:18)
[2022-11-18] MEDS: AMIODARONE HCL 200 MG TABLET NGT SCH ×2 (12:06→21:24)
[2022-11-18] MEDS: FAMOTIDINE 40 MG/5 ML ORAL SUSPENSION PEG SCH (12:06)
[2022-11-18] MEDS: MIDODRINE HCL 5 MG TABLET PO SCH ×3 (12:06→17:44)
[2022-11-18] MEDS: NAPH,MB-DB/K PH,MBDB POWDER PACKET GT SCH ×2 (12:06→21:24)
[2022-11-18] MEDS: FUROSEMIDE 40 MG/4 ML INJECTABLE VIAL IVPUSH SCH (12:06)
[2022-11-18] MEDS: COLLAGENASE CLOSTRIDIUM HIST. 30 GRAMS TUBE TP SCH (12:06)
[2022-11-18] MEDS: AMINO ACIDS/PROTEIN HYDROLYS 30 ML LIQUID.PKT GT SCH ×2 (12:06→17:44)
[2022-11-18] MEDS: QUEtiapine FUMARATE 25 MG TABLET GT SCH (12:07)
[2022-11-18] MEDS: ASCORBIC ACID 500 MG/5 ML UNIT DOSE CUP GT SCH (12:07)
[2022-11-18] MEDS: QUEtiapine FUMARATE 50 MG TABLET GT SCH (21:24)
[2022-11-18] MEDS: CHLORHEXIDINE GLUCONATE 4% CLEANSER FOR DECOLONIZATION TP SCH (21:24)
[2022-11-19] MEDS: QUEtiapine FUMARATE 25 MG TABLET GT SCH (10:07)
[2022-11-19] MEDS: AMIODARONE HCL 200 MG TABLET NGT SCH ×2 (10:07→21:19)
[2022-11-19] MEDS: FUROSEMIDE 40 MG/4 ML INJECTABLE VIAL IVPUSH SCH (10:08)
[2022-11-19] MEDS: MIDODRINE HCL 5 MG TABLET PO SCH ×3 (10:08→18:05)
[2022-11-19] MEDS: AMINO ACIDS/PROTEIN HYDROLYS 30 ML LIQUID.PKT GT SCH ×2 (10:08→18:05)
[2022-11-19] MEDS: COLLAGENASE CLOSTRIDIUM HIST. 30 GRAMS TUBE TP SCH (10:19)
[2022-11-19] MEDS: ASCORBIC ACID 500 MG/5 ML UNIT DOSE CUP GT SCH (10:19)
[2022-11-19] MEDS: FAMOTIDINE 40 MG/5 ML ORAL SUSPENSION PEG SCH (10:19)
[2022-11-19] MEDS: NAPH,MB-DB/K PH,MBDB POWDER PACKET GT SCH ×2 (10:19→21:19)
[2022-11-19] MEDS: QUEtiapine FUMARATE 50 MG TABLET GT SCH (21:19)
[2022-11-19] MEDS: CHLORHEXIDINE GLUCONATE 4% CLEANSER FOR DECOLONIZATION TP SCH (21:19)
[2022-11-20 08:37] VITALS: BP 105/58
[2022-11-20 09:06] VITALS: TEMP 98.9
[2022-11-20] MEDS: AMIODARONE HCL 200 MG TABLET NGT SCH (09:22)
[2022-11-20] MEDS: MIDODRINE HCL 5 MG TABLET PO SCH (09:22)
[2022-11-20] MEDS: QUEtiapine FUMARATE 25 MG TABLET GT SCH (09:22)
[2022-11-20] MEDS: AMINO ACIDS/PROTEIN HYDROLYS 30 ML LIQUID.PKT GT SCH (09:23)
[2022-11-20] MEDS: ASCORBIC ACID 500 MG/5 ML UNIT DOSE CUP GT SCH (09:23)
[2022-11-20] MEDS: COLLAGENASE CLOSTRIDIUM HIST. 30 GRAMS TUBE TP SCH (09:23)
[2022-11-20] MEDS: FUROSEMIDE 40 MG/4 ML INJECTABLE VIAL IVPUSH SCH (09:23)
[2022-11-20] MEDS: NAPH,MB-DB/K PH,MBDB POWDER PACKET GT SCH (09:23)
[2022-11-20] MEDS: FAMOTIDINE 40 MG/5 ML ORAL SUSPENSION PEG SCH (09:23)
[2022-11-20 09:32] VITALS: PULSE 77; RESP 20
== END 2022-11-20 11:20 | DRG 207 ==
LOC: JER 14:23 → JERBED 16:11 → JICU 18:06 → J4S 10-16 18:36 → JICU 10-16 18:37 → J5S 10-16 20:59 → JICU 10-21 09:45 → J2W 10-25 09:09 → JICU 11-03 12:17 → J2W 11-13 23:37
PROVIDERS: ADMIT Internal Medicine; ATTEND Internal Medicine
PROC: 0W9B30Z Drainage of Left Pleural Cavity with Drainage Device, Percutaneous Approach (ICD-10-PCS; principal; 2022-10-07)
PROC: 5A1955Z Respiratory Ventilation, Greater than 96 Consecutive Hours (ICD-10-PCS; 2022-10-07)
PROC: 30233N1 Transfusion of Nonautologous Red Blood Cells into Peripheral Vein, Percutaneous Approach (ICD-10-PCS; 2022-10-12)
PROC: 05HC33Z Insertion of Infusion Device into Left Basilic Vein, Percutaneous Approach (ICD-10-PCS; 2022-10-13)
PROC: B54NZZA Ultrasonography of Left Upper Extremity Veins, Guidance (ICD-10-PCS; 2022-10-13)
PROC: 05H933Z Insertion of Infusion Device into Right Brachial Vein, Percutaneous Approach (ICD-10-PCS; 2022-11-11)
DX: J93.83 Other pneumothorax (principal); A41.89 Other specified sepsis; L89.153 Pressure ulcer of sacral region, stage 3; J15.0 Pneumonia due to Klebsiella pneumoniae; U07.1 COVID-19; R65.21 Severe sepsis with septic shock; J96.11 Chronic respiratory failure with hypoxia; R64 Cachexia; K92.2 Gastrointestinal hemorrhage, unspecified; N17.9 Acute kidney failure, unspecified; I48.92 Unspecified atrial flutter; J98.11 Atelectasis; I50.22 Chronic systolic (congestive) heart failure; E11.9 Type 2 diabetes mellitus without complications; F03.90 Unspecified dementia, unspecified severity, without behavioral disturbance, psychotic disturbance, mood disturbance, and anxiety; I48.91 Unspecified atrial fibrillation; G62.89 Other specified polyneuropathies; D64.9 Anemia, unspecified; D72.829 Elevated white blood cell count, unspecified; Z68.25 Body mass index [BMI] 25.0-25.9, adult; R41.82 Altered mental status, unspecified; R00.0 Tachycardia, unspecified; J93.82 Other air leak; I95.9 Hypotension, unspecified; R50.9 Fever, unspecified; R33.8 Other retention of urine; I11.0 Hypertensive heart disease with heart failure; Z93.1 Gastrostomy status; Z93.0 Tracheostomy status
CPT/HCPCS: 0241U-QW; 36415; 36430; 36600; 71045-TC-FY; 74018-TC-FY; 80048; 80053; 80076; 81003; 82308; 82550; 82553; 82803; 82962; 83605; 83735; 84100; 84484; 85025; 85027; 85610; 85730; 86140; 86850; 86900; 86901; 86922; 87040; 87070; 87077; 87086; 87184; 87186; 87205; 87324; 87449; 93005; 93010; 93970-TC; 94002; 94640; 99285-25; C9399; C9803-CS; G0480; J0282; J1644; P9058; U0003; U0005